=== PATIENT | female | born 1965 | race Caucasian/White ===

== ENCOUNTER 2016-05-07 11:43 | Inpatient (IN) | payer OTHER ==
[2016-05-07] MEDS ORDERED: SODIUM CHLORIDE 0.9% 1,000 ML IV STA (11:57)
[2016-05-07] MEDS ORDERED: SODIUM CHLORIDE 0.9% 500 ML IV STA (11:57)
--- NOTE | 2016-05-07 12:09 | ED ---
General Adult HPI - General Chief complaint: Chest Pain Stated complaint: CHEST PAIN Time Seen by Provider: 05/07/16 11:57 Source: patient, RN notes reviewed, old records reviewed Mode of arrival: wheelchair Limitations: no limitations - History of Present Illness Initial comments: This is a 50-year-old female the ER for evaluation of chest pain. Patient does have prior history of ME, patient coming in with anterior chest pain is been episodic for about a week and a half. Patient's no prior cardiac evaluation, pain is worse with activity. Mild diaphoresis no significant shortness of breath. Facially currently having chest pain now - Related Data Home Medications Medication Instructions Recorded Confirmed No Known Home Medications [No 05/07/16 05/07/16 Known Home Medications] Allergies Allergy/AdvReac Type Severity Reaction Status Date / Time amoxicillin Allergy Dyspnea Verified 05/07/16 13:05 Review of Systems ROS Statement: Those systems with pertinent positive or pertinent negative responses have been documented in the HPI. ROS Other: All systems not noted in ROS Statement are negative. Past Medical History Past Medical History: Hyperlipidemia, Hypertension History of Any Multi-Drug Resistant Organisms: None Reported Past Surgical History: Section Past Psychological History: No Psychological Hx Reported Smoking Status: Never smoker Past Alcohol Use History: None Reported Past Drug Use History: None Reported General Exam Limitations: no limitations General appearance: alert, in no apparent distress, anxious Head exam: Present: atraumatic, normocephalic, normal inspection Eye exam: Present: normal appearance, PERRL, EOMI. Absent: scleral icterus, conjunctival injection, periorbital swelling ENT exam: Present: normal exam, mucous membranes moist Neck exam: Present: normal inspection. Absent: tenderness, meningismus, lymphadenopathy Respiratory exam: Present: normal lung sounds bilaterally. Absent: respiratory distress, wheezes, rales, rhonchi, stridor Cardiovascular Exam: Present: regular rate, normal rhythm, normal heart sounds. Absent: systolic murmur, diastolic murmur, rubs, gallop, clicks GI/Abdominal exam: Present: soft, normal bowel sounds. Absent: distended, tenderness, guarding, rebound, rigid Extremities exam: Present: normal inspection, full ROM, normal capillary refill. Absent: tenderness, pedal edema, joint swelling, calf tenderness Back exam: Present: normal inspection Neurological exam: Present: alert, oriented X3, CN II-XII intact Psychiatric exam: Present: normal affect, normal mood Skin exam: Present: warm, dry, intact, normal color. Absent: rash Course Vital Signs 05/07/16 05/07/16 11:47 12:42 Temperature 98.0 F Pulse Rate 88 94 Respiratory 20 18 Rate Blood Pressure 230/101 238/114 O2 Sat by Pulse 98 96 Oximetry - Reevaluation(s) Reevaluation #1: 05/07/16 13:34 She remains with chest pain that has been help with nitro EKG Findings - EKG Comments: EKG Findings:: EKG shows her most sinus rhythm rate of 84, MT 112, QRS 60, QTC 420, patient does have T-wave inversions in the anterolateral leads. Repeat. EKG shows normal sinus rhythm rate of 89, MT 108, QRS 60, QTC 433, patient does have T-wave inversions in anterior lateral leads Medical Decision Making - Medical Decision Making 50 female at ER for evaluation of chest pain, severe anterior chest pain heaviness, patient does have EKG changes showing anterior lateral cardiac ischemia with T-wave inversion on EKG, patient will be made for anticoagulation serial troponins and cardiac observation. - Lab Data Result diagrams: 05/07/16 12:13 05/07/16 12:13 Lab Results 05/07/16 05/07/16 Range/Units 12:13 12:13 WBC 8.5 (3.8-10.6) k/uL RBC 5.99 H (3.80-5.40) m/uL Hgb 18.3 H (11.4-16.0) gm/dL Hct 56.3 H (34.0-46.0) % MCV 94.0 (80.0-100.0) fL MCH 30.5 (25.0-35.0) pg MCHC 32.4 (31.0-37.0) g/dL RDW 13.4 (11.5-15.5) % Plt Count 213 (150-450) k/uL Neutrophils % 74 % Lymphocytes % 16 % Monocytes % 7 % Eosinophils % 1 % Basophils % 0 % Neutrophils # 6.3 (1.3-7.7) k/uL Lymphocytes # 1.3 (1.0-4.8) k/uL Monocytes # 0.6 (0-1.0) k/uL Eosinophils # 0.0 (0-0.7) k/uL Basophils # 0.0 (0-0.2) k/uL Sodium 140 (137-145) mmol/L Potassium 5.0 (3.5-5.1) mmol/L Chloride 103 (98-107) mmol/L Carbon Dioxide 23 (22-30) mmol/L Anion Gap 14 mmol/L BUN 18 H (7-17) mg/dL Creatinine 1.04 (0.52-1.04) mg/dL Est GFR (MDRD) Af Amer >60 (>60 ml/min/1.73 sqM) Est GFR (MDRD) Non-Af 56 (>60 ml/min/1.73 sqM) Glucose 168 H (74-99) mg/dL Calcium 10.1 (8.4-10.2) mg/dL Magnesium 1.9 (1.6-2.3) mg/dL Total Bilirubin 0.9 (0.2-1.3) mg/dL AST 45 H (14-36) U/L ALT 41 (9-52) U/L Alkaline Phosphatase 99 (38-126) U/L Total Protein 8.3 H (6.3-8.2) g/dL Albumin 4.5 (3.5-5.0) g/dL Lipase 54 (23-300) U/L - Radiology Data Radiology results: report reviewed, image reviewed Critical Care Time Critical Care Time: Yes Total Critical Care Time: 31 Disposition Clinical Impression: NSTEMI (non-ST elevated myocardial infarction) Disposition: ADMITTED IP TO THIS [facility] Condition: Serious Referrals: None,Stated [Primary Care Provider] - 1-2 days
[2016-05-07] MEDS ORDERED: ASPIRIN 81 MG CHEW PO STA (12:31)
[2016-05-07] MEDS ORDERED: LABETALOL SYRINGE 5 MG/ML IVP STA ×2 (12:31→13:33)
[2016-05-07] MEDS ORDERED: NITROGLYCERIN OINT 1 INCH/GM PACKET TOPICAL STA (12:38)
[2016-05-07 13:00] LABS: Basophils % (A) 0 %; CHCM 33.2; Eosinophils % (A) 1 %; HCT 56.3 % (34.0-46.0); HDW 2.57; HGB 18.3 gm/dL (11.4-16.0); Luc # (Auto) 0.26; Luc % (Auto) 3; Lymphocytes # (A) 1.3 k/uL (1.0-4.8); Lymphocytes % (A) 16 %; MCH 30.5 pg (25.0-35.0); MCHC 32.4 g/dL (31.0-37.0); Mean Platelet Volume 8.7; Monocytes # (A) 0.6 k/uL (0-1.0); Monocytes % (A) 7 %; Neutrophils # (A) 6.3 k/uL (1.3-7.7); Neutrophils % (A) 74 %; RBC 5.99 m/uL (3.80-5.40); RDW 13.4 % (11.5-15.5); WBC 8.5 k/uL (3.8-10.6); WBC (Perox) 9.02
[2016-05-07 13:07] LABS: Anion Gap 14 mmol/L; Calcium 10.1 mg/dL (8.4-10.2); Carbon Dioxide 23 mmol/L (22-30); Chloride 103 mmol/L (98-107); Glucose 168 mg/dL (74-99); Non-African American GFR(MDRD) 56 (>60 ml/min/1.73 sqM); Sodium 140 mmol/L (137-145); Total Bilirubin 0.9 mg/dL (0.2-1.3); Total Protein 8.3 g/dL (6.3-8.2)
[2016-05-07 13:09] LABS: Blood Urea Nitrogen 18 mg/dL (7-17)
[2016-05-07 13:10] LABS: ALT 41 U/L (9-52); AST 45 U/L (14-36); Alkaline Phosphatase 99 U/L (38-126); Magnesium 1.9 mg/dL (1.6-2.3)
--- NOTE | 2016-05-07 13:14 | XR ---
EXAMINATION TYPE: XR chest 2V DATE OF EXAM: 05/07/2016 1:10 PM HISTORY: Chest Pain. REFERENCE: NONE. FINDINGS: There is mild fullness of the right paratracheal soft tissues, likely on the basis of ectas ia of the great vessels. There is platelike atelectasis in the right midlung. The lungs are otherwise clear. Pleural spaces ar e clear. Heart size is upper limits of normal. IMPRESSION: ATELECTATIC CHANGE, RIGHT MIDLUNG.
[2016-05-07] MEDS ORDERED: HEPARIN SODIUM,PORCINE 5,000 UNIT/ML 1 ML VIAL IV PRN (13:31)
[2016-05-07] MEDS ORDERED: HEPARIN SODIUM,PORCINE 5,000 UNIT/ML 1 ML VIAL IV ONE (13:31)
[2016-05-07] MEDS ORDERED: NITROGLYCERIN SL TABS 0.4 MG TAB SUBLINGUAL PRN (13:31)
[2016-05-07] MEDS ORDERED: RX INFO: IV CONTRAST WAS GIVEN 1 EACH MISC MISCELLANE PRN (13:38)
[2016-05-07] MEDS ORDERED: HEPARIN SODIUM,PORCINE/D5W PMX 25,000 UNIT in DEXTROSE/WATER 1 500ML.BAG IV SCH (13:45)
[2016-05-07 13:49] LABS: Troponin I 0.186 ng/mL (0.000-0.034)
[2016-05-07 13:50] LABS: Creatine Kinase MB 3.9 ng/mL (0.0-2.4)
[2016-05-07 13:56] LABS: Partial Thromboplastin Time 19.2 sec (22.0-30.0)
[2016-05-07 13:57] LABS: Prothrombin Time 9.9 sec (9.0-12.0)
--- NOTE | 2016-05-07 14:13 | CT ---
EXAMINATION TYPE: CT angio chest DATE OF EXAM: 05/07/2016 2:02 PM COMPARISON: NONE HISTORY: Mid to right sided chest pain x [address] DLP: 467.00 mGycm Automated exposure control for dose reduction was used. CONTRAST: CTA scan of the thorax is performed with IV Contrast, patient injected with 80 mL of Visipaque 320, p ulmonary embolism protocol. . FINDINGS: There is some dependent atelectasis in the dependent portions of the lungs. The lungs are o therwise clear. There is no significant axillary, internal mammary, mediastinal or hilar adenopathy. There is no evidence of pulmonary embolus. The aorta is normal in caliber without evidence of dissection. There is no pleural or pericardial fluid. The heart is not enlarged. There is a small hiatal hernia present. Visualized portions of the upper abdomen are otherwise unrema rkable. There is mild hypertrophic spondylosis within the spine. IMPRESSION: 1. THIS EXAMINATION IS NEGATIVE FOR PULMONARY EMBOLUS. 2. SMALL HIATAL HERNIA.
[2016-05-07] MEDS: SODIUM CHLORIDE 0.9% 1,000 ML IV SCH (18:40)
[2016-05-07] MEDS: NITROGLYCERIN OINT 1 INCH/GM PACKET TOPICAL SCH ×2 (18:42→23:08)
[2016-05-07 19:45] LABS: Creatine Kinase MB 19.6 ng/mL (0.0-2.4)
[2016-05-07] MEDS ORDERED: ACETAMINOPHEN TAB 325 MG TAB PO PRN (20:57)
[2016-05-08 00:54] LABS: Troponin I 6.9 ng/mL (0.000-0.034)
[2016-05-08] MEDS ORDERED: ATENOLOL 25 MG TAB PO STA (02:55)
[2016-05-08] MEDS: ATORVASTATIN 80 MG TAB PO SCH (07:56)
[2016-05-08] MEDS: ASPIRIN 325 MG TAB PO SCH (07:56)
[2016-05-08] MEDS: NITROGLYCERIN OINT 1 INCH/GM PACKET TOPICAL SCH ×2 (07:56→18:58)
[2016-05-08] MEDS ORDERED: ALPRAZolam 0.5 MG TAB PO PRN (08:31)
[2016-05-08] MEDS ORDERED: NITROGLYCERIN SL TABS 0.4 MG TAB SUBLINGUAL PRN (08:31)
[2016-05-08] MEDS ORDERED: SODIUM CHLORIDE 0.9% 1,000 ML in EMPTY BAG 1 BAG IV ONE (08:31)
[2016-05-08] MEDS ORDERED: ALPRAZolam 0.25 MG TAB PO PRN (08:31)
[2016-05-08] MEDS ORDERED: ATORVASTATIN 80 MG TAB PO STA (08:31)
[2016-05-08] MEDS ORDERED: ASPIRIN 325 MG TAB PO STA (08:31)
--- NOTE | 2016-05-08 08:39 | P.CRDCN ---
History of Present Illness Consult date: 05/08/16 Requesting physician: Raine Latif Consult reason: non-Q-wave [place] Chief complaint: Chest pain History of present illness: This is a 50-year-old female with known history of hypertension, hyperlipidemia, family history of premature coronary artery disease, who states that she used to take medication for blood pressure and hyperlipidemia but has not taken them for several years. She presents to the hospital with symptoms of midsternal chest pressure and heaviness. She states that she's been experiencing discomfort for the past one to 2 weeks, mostly in her right shoulder and down her right arm. The day prior to coming to the hospital she states that she had discomfort across her entire chest, and down into the right arm. She denies any associated shortness of breath, no diaphoresis, no nausea. EKG on arrival here showed a normal sinus rhythm with ST-T wave changes mainly in the anterior lateral leads, some T wave inversion noted inferiorly as well. Chest x-ray revealed some atelectatic changes in the right midlung. CTA of the chest was negative for pulmonary embolism. WBC 8.5, hemoglobin 18.3, platelet count 213, potassium 5.0, BUN 18, creatinine 1.0. Magnesium level I.9 , troponins 0.18, 2.7, and 6.9. BNP level 238. The pressure on arrival to the emergency room 230/101, heart rate in the 80s, 98% on room air. The pressure this morning 164/90 with a heart rate in the 80s, 95% on room air. Patient is currently on IV heparin, aspirin, and atenolol. At the time of my examination this morning, she is chest pain-free. Past Medical History Past Medical History: Hyperlipidemia, Hypertension History of Any Multi-Drug Resistant Organisms: None Reported Past Surgical History: Section Additional Past Surgical History / Comment(s): gallstone surgery 1982 Past Anesthesia/Blood Transfusion Reactions: No Reported Reaction Past Psychological History: No Psychological Hx Reported Smoking Status: Never smoker Past Alcohol Use History: None Reported Past Drug Use History: None Reported - Past Family History Daughter(s) Family Medical History: No Reported History Brother(s) Family Medical History: Myocardial Infarction ([place]) Medications and Allergies Home Medications Medication Instructions Recorded Confirmed Type No Known Home Medications [No 05/07/16 05/07/16 History Known Home Medications] Allergies Allergy/AdvReac Type Severity Reaction Status Date / Time amoxicillin Allergy Dyspnea Verified 05/07/16 13:05 Physical Exam Vitals: Vital Signs Temp Pulse Pulse Resp BP BP BP 05/08/16 04:00 97.5 F L 80 16 165/90 05/08/16 00:00 97.5 F L 76 18 144/87 05/07/16 20:00 98.4 F 78 16 159/92 05/07/16 17:30 97.8 F 82 16 142/77 05/07/16 17:05 99.3 F 75 16 127/77 05/07/16 16:03 72 18 118/59 05/07/16 14:30 84 18 197/94 05/07/16 14:02 86 20 197/110 Pulse Ox 05/08/16 04:00 95 05/08/16 00:00 95 05/07/16 20:00 95 05/07/16 17:30 96 05/07/16 17:05 96 05/07/16 16:03 95 05/07/16 14:30 95 05/07/16 14:02 97 Intake and Output 05/07/16 05/08/16 05/08/16 22:59 06:59 14:59 Intake Total 220 237.405 Output Total 200 300 Balance 20 -62.595 Intake: Intake, IV Titration 237.405 Amount Heparin Sodium,Porcine/ 237.405 D5w Pmx 25,000 unit In Dextrose/Water 1 500ml. bag @ 11 UNITS/KG/HR 19. 95 mls/hr IV .Q24H MERYL Rx #:[id number] Oral 220 Output: Urine 200 300 Other: # Voids 1 Weight 91.7 kg PHYSICAL EXAMINATION: HEENT: Head is atraumatic, normocephalic. Pupils equal, round. Neck is supple. There is no elevated jugular venous pressure. HEART EXAMINATION: Heart S1, S2 normal. No murmur or gallop heard. CHEST EXAMINATION: Lungs are clear to auscultation and precussion. No chest wall tenderness is noted on palpation or with deep breathing. ABDOMEN: Soft, obese, nontender. Bowel sounds are heard. No organomegaly noted. EXTREMITIES: 2+ peripheral pulses with no evidence of peripheral edema and no calf tenderness noted. NEUROLOGIC patient is awake, alert and oriented -3. . Results 05/07/16 12:13 05/07/16 12:13 Cardiac Enzymes 05/07/16 05/07/16 05/08/16 Range/Units 19:02 20:24 00:01 CK-MB (CK-2) 19.6 H* 27.0 H* (0.0-2.4) ng/mL Troponin I Cancelled 2.770 H* 6.900 H* Coagulation 05/07/16 05/08/16 Range/Units 20:15 02:28 APTT 36.0 H 47.5 H (22.0-30.0) sec Current Medications Generic Name Dose Route Start Last Admin Trade Name Freq PRN Reason Stop Dose Admin Acetaminophen 650 mg 05/07/16 20:57 05/07/16 21:20 Tylenol Tab PO 650 mg Q4HR PRN Administration Fever and/ or Mild Pain Aspirin 325 mg 05/08/16 09:00 05/08/16 07:56 Aspirin PO 325 mg DAILY MERYL Administration Atenolol 25 mg 05/08/16 09:00 05/08/16 07:56 Tenormin PO 25 mg DAILY MERYL Administration Atorvastatin Calcium 80 mg 05/08/16 09:00 05/08/16 07:56 Lipitor PO 80 mg DAILY MERYL Administration Heparin Sodium (Porcine) 0 unit 05/07/16 13:31 Heparin IV Q6HR PRN Low PTT Protocol Heparin Sodium/Dextrose 25,000 500 mls @ 19.95 mls/hr 05/07/16 13:45 02:30 unit/ IV Solution IV 14 units/kg/hr .Q24H MERYL 25.4 mls/hr Protocol Titration 11 UNITS/KG/HR Sodium Chloride 1,000 mls @ 20 mls/hr 05/07/16 13:45 05/07/16 18:40 Saline 0.9% IV Not Given .Q24H [facility] Miscellaneous Information 1 each 05/07/16 13:38 Rx Info: Iv Contrast Was Given MISCELLANE 05/09/16 13:39 DAILY PRN Per Protocol Nitroglycerin 1 inch 05/07/16 18:00 05/08/16 07:56 Nitro-Bid Oint TOPICAL 1 inch Q6HR MERYL Administration Nitroglycerin 0.4 mg 05/07/16 13:31 Nitrostat SUBLINGUAL Q5M PRN Chest Pain Intake and Output 05/07/16 05/08/16 05/08/16 22:59 06:59 14:59 Intake Total 220 237.405 Output Total 200 300 Balance 20 -62.595 Intake: Intake, IV Titration 237.405 Amount Heparin Sodium,Porcine/ 237.405 D5w Pmx 25,000 unit In Dextrose/Water 1 500ml. bag @ 11 UNITS/KG/HR 19. 95 mls/hr IV .Q24H MERYL Rx #:[id number] Oral 220 Output: Urine 200 300 Other: # Voids 1 Weight 91.7 kg EKG Interpretations (text) EKG shows normal sinus rhythm with anterior lateral ST-T wave changes as well as inferior T-wave inversions. Assessment and Plan Plan: Assessment and plan #1 non-Q-wave myocardial infarction #2 accelerated hypertension #3 hyperlipidemia, untreated #4 history of hypertension, untreated #5 strong family history of premature coronary artery disease Plan We will discontinue the patient's atenolol and start the patient on Lopressor. Give the patient 80 mg of Lipitor stat. Obtain stat echocardiogram with Doppler study. Continue IV heparin, aspirin, add a small dose of EDMUNDO inhibitor to her medication regime. Patient has been advised to undergo cardiac catheterization for more definitive diagnosis, the risks and the benefits were explained to the patient in detail. This will be performed this morning. Further recommendations to follow. DNP note has been reviewed, I agree with a documented findings and plan of care. Patient was seen and examined.
[2016-05-08] MEDS ORDERED: ATENOLOL 25 MG TAB PO SCH (09:00)
[2016-05-08] MEDS ORDERED: LISINOPRIL 5 MG TAB PO SCH (09:00)
[2016-05-08 09:56] LABS: Cholesterol 179 mg/dL (<200); HDL Cholesterol 44 mg/dL (40-60); Triglycerides 159 mg/dL (<150)
[2016-05-08] MEDS ORDERED: LIDOCAINE 2% INJ 20 MG/ML (20 ML MDV) ONE (10:02)
[2016-05-08] MEDS ORDERED: MIDAZOLAM 2 MG/2 ML VIAL ONE (10:03)
[2016-05-08] MEDS ORDERED: fentaNYL (PF) 50 MCG/ML 2 ML AMP ONE (10:04)
--- NOTE | 2016-05-08 10:41 | ECHOF ---
Referral Reason:WI MEASUREMENTS -------- HEIGHT: 149.9 cm WEIGHT: 92.1 kg BP: 147/77 RVIDd: 2.6 cm (< 3.3) IVSd: 1.2 cm (0.6 - 1.1) LVIDd: 3.2 cm (3.9 - 5.3) LVPWd: 1.2 cm (0.6 - 1.1) IVSs: 1.6 cm LVIDs: 2.3 cm LVPWs: 1.8 cm LA Diam: 2.8 cm (2.7 - 3.8) LAESV Index (A-L): 22.85 ml/m Ao Diam: 3.0 cm (2.0 - 3.7) AV Cusp: 1.8 cm (1.5 - 2.6) MV EXCURSION: 8.503 mm (> 18.000) MV EF SLOPE: 41 mm/s (70 - 150) EPSS: 0.4 cm MV E John: 0.83 m/s MV DecT: 212 ms MV A John: 0.98 m/s MV E/A Ratio: 0.85 RAP: 5.00 mmHg RVSP: 28.52 mmHg FINDINGS -------- Sinus rhythm. This was a technically difficult study with suboptimal views. The left ventricular size is normal. There is borderline concentric left ventricular hypertrophy. Overall left ventricular systolic function is normal with, an EF between 55 - 60 %. The right ventricle is normal in size. Normal LA size by volume 22+/-6 ml/m2. The right atrium is normal in size. 1.5mg of Definity was utilized for enhancement of images The aortic valve is trileaflet and appears structurally normal. Mild mitral annular calcification present. There is trace to mild mitral regurgitation. Mild tricuspid regurgitation present. Right ventricular systolic pressure is normal at < 35 mmHg. The pulmonic valve was not well visualized. The aortic root size is normal. There is no pericardial effusion. CONCLUSIONS -------- 1. Sinus rhythm. 2. The aortic valve is trileaflet and appears structurally normal. 3. Mild mitral annular calcification present. 4. There is trace to mild mitral regurgitation. 5. Mild tricuspid regurgitation present. 6. Right ventricular systolic pressure is normal at < 35 mmHg. 7. The pulmonic valve was not well visualized. 8. The aortic root size is normal. 9. There is no pericardial effusion. 10. This was a technically difficult study with suboptimal views. 11. The left ventricular size is normal. 12. There is borderline concentric left ventricular hypertrophy. 13. Overall left ventricular systolic function is normal with, an EF between 55 - 60 %. 14. The right ventricle is normal in size. 15. Normal LA size by volume 22+/-6 ml/m2. 16. The right atrium is normal in size. 17. 1.5mg of Definity was utilized for enhancement of images TEMPER MILL OPERATOR: Sandra Viera RDCS
[2016-05-08] MEDS ORDERED: fentaNYL (PF) 50 MCG/ML 2 ML AMP IV ONE (10:54)
[2016-05-08] MEDS ORDERED: MIDAZOLAM 2 MG/2 ML VIAL IVP ONE (10:54)
[2016-05-08] MEDS ORDERED: LIDOCAINE 2% (PF) 20 MG/ML 2 ML VIAL SQ ONE (11:05)
[2016-05-08] MEDS ORDERED: NITROGLYCERIN SL TABS 0.4 MG TAB SUBLINGUAL ONE (11:13)
[2016-05-08] MEDS: NITROGLYCERIN SL TABS 0.4 MG TAB SUBLINGUAL ONE ×2 (11:14→12:02)
[2016-05-08] MEDS: NITROGLYCERIN 1000MCG/10ML SYRINGE INTRACORON ONE ×3 (11:19→11:31)
[2016-05-08] MEDS ORDERED: IOHEXOL 300 MG/ML 100 ML BOTTLE IV ONE (11:45)
[2016-05-08] MEDS ORDERED: LABETALOL SYRINGE 5 MG/ML ONE (11:45)
[2016-05-08] MEDS: LABETALOL SYRINGE 5 MG/ML IVP ONE ×2 (11:46→12:08)
[2016-05-08] MEDS ORDERED: SODIUM CHLORIDE 0.9% 1,000 ML IV ONE (11:51)
[2016-05-08] MEDS ORDERED: HYDROmorphone 2 MG/ML 1 ML SYRINGE ONE (11:52)
[2016-05-08] MEDS ORDERED: RX INFO: IV CONTRAST WAS GIVEN 1 EACH MISC MISCELLANE PRN (11:55)
[2016-05-08] MEDS ORDERED: HYDROmorphone 2 MG/ML 1 ML SYRINGE IVP ONE (11:55)
[2016-05-08] MEDS ORDERED: NITROGLYCERIN-D5W PMX 50 MG in DEXTROSE/WATER 1 250ML.BAG IV ONE (11:57)
[2016-05-08 12:23] LABS: Glucose,Whole Blood 146 mg/dL (75-99)
--- NOTE | 2016-05-08 13:00 | CC ---
DATE OF SERVICE: This patient came to the emergency room with the complaint of recurrent chest pain. EKG showed diffuse T-wave inversions in the inferolateral leads. Patient's troponin went up to 6. In view of that, the patient was advised cardiac catheterization for definitive diagnosis. PROCEDURE: The right groin was prepped and draped in the usual manner and the skin was infiltrated with 2% Xylocaine. The right femoral artery was entered using Seldinger technique. A #6 Ivorian sheath was placed in. Selective coronary angiography was then performed in multiple projections. It was difficult to engage the left main coronary artery and JL3 catheter was used. There was dampening of the pressure with engagement of the left main. The left main coronary artery appears to be diffusely diseased and significantly small caliber blood vessel as compared to the LAD and the circumflex coronary artery has a diffuse 70% stenosis. Patient did receive intracoronary nitroglycerin without any resolution and there was no definite evidence of any spasm. LAD is a good caliber blood vessel and gives rise to the diagonal branch. LAD and its branches are normal. The circumflex coronary artery is normal. The right coronary artery, there was a dampening of the pressure when the right coronary artery was engaged and the patient did receive intracoronary nitroglycerin. Patient has evidence of calcium in ostials and there is a significant ostial stenosis of the right coronary artery. Left ventricular end-diastolic pressure is 24 mmHg prior to angiography. No gradient is noted across the aortic valve. FINAL IMPRESSION: This study reveals a diffusely diseased left main coronary artery which is much smaller caliber blood vessel as compared to the LAD and circumflex and appears to be at least diffuse 70% stenosis. There is ostial stenosis of the right coronary artery with dampening of the pressure. RECOMMENDATIONS: In view of the significant triple-vessel disease and EKG abnormality and positive troponin level, we will review the film with surgeon and consider coronary artery bypass surgery. The films were also reviewed with Dr. Leach.
[2016-05-08] MEDS ORDERED: NITROGLYCERIN-D5W PMX 50 MG in DEXTROSE/WATER 1 250ML.BAG IV SCH (14:00)
[2016-05-08] MEDS: SODIUM CHLORIDE 0.9% 1,000 ML IV SCH ×2 (14:02→16:16)
--- NOTE | 2016-05-08 14:27 | P.CNPUL ---
History of Present Illness Consult date: 05/08/16 Reason for consult: other Chief complaint: Chest pain History of present illness: This is a 50-year-old female who presented to the emergency room for chest pain. She does have a prior history of acute myocardial infarction. Ore been going on for at least the day before admission. Chest pain On and off. Mild sweating. No shortness of breath. No history of any pulmonary issues. The patient was taken to the Film Library Clerk. Apparently the patient was found have significant coronary disease and doesn't spend bypass grafting in the near future. Review of Systems A 12 point review of system is positive for chest pain and mild diaphoresis. No nausea vomiting. No shortness of breath. No fever no chills. Past Medical History Past Medical History: Hyperlipidemia, Hypertension History of Any Multi-Drug Resistant Organisms: None Reported Past Surgical History: Section Additional Past Surgical History / Comment(s): gallstone surgery 1982 Past Anesthesia/Blood Transfusion Reactions: No Reported Reaction Past Psychological History: No Psychological Hx Reported Smoking Status: Never smoker Past Alcohol Use History: None Reported Past Drug Use History: None Reported - Past Family History Daughter(s) Family Medical History: No Reported History Brother(s) Family Medical History: Myocardial Infarction ([place]) Medications and Allergies Home Medications Medication Instructions Recorded Confirmed Type No Known Home Medications [No 05/07/16 05/07/16 History Known Home Medications] Allergies Allergy/AdvReac Type Severity Reaction Status Date / Time amoxicillin Allergy Dyspnea Verified 05/07/16 13:05 Physical Exam Osteopathic Statement: *. No significant issues noted on an osteopathic structural exam other than those noted in the History and Physical/Consult. Vitals: Vital Signs Temp Pulse Pulse Resp BP BP BP 05/08/16 14:00 67 106/64 05/08/16 13:40 130/69 05/08/16 13:10 124/70 05/08/16 13:00 66 15 130/74 05/08/16 12:40 140/78 05/08/16 12:30 97.5 F L 78 12 133/82 05/08/16 12:25 141/79 05/08/16 12:10 147/83 05/08/16 08:00 97.2 F L 78 18 147/77 05/08/16 04:00 97.5 F L 80 16 165/90 05/08/16 00:00 97.5 F L 76 18 144/87 05/07/16 20:00 98.4 F 78 16 159/92 05/07/16 17:30 97.8 F 82 16 142/77 05/07/16 17:05 99.3 F 75 16 127/77 05/07/16 16:03 72 18 118/59 05/07/16 14:30 84 18 197/94 Pulse Ox 05/08/16 14:00 93 L 05/08/16 13:40 05/08/16 13:10 05/08/16 13:00 96 05/08/16 12:40 05/08/16 12:30 94 L 05/08/16 12:25 05/08/16 12:10 05/08/16 08:00 94 L 05/08/16 04:00 95 05/08/16 00:00 95 05/07/16 20:00 95 05/07/16 17:30 96 05/07/16 17:05 96 05/07/16 16:03 95 05/07/16 14:30 95 Intake and Output 05/07/16 05/08/16 05/08/16 22:59 06:59 14:59 Intake Total 220 237.405 221.7 Output Total 200 300 Balance 20 -62.595 221.7 Intake: IV 220 0.9 NS 170 Intake, IV Titration 237.405 1.7 Amount Heparin Sodium,Porcine/ 237.405 D5w Pmx 25,000 unit In Dextrose/Water 1 500ml. bag @ 11 UNITS/KG/HR 19. 95 mls/hr IV .Q24H MERYL Rx #:[id number] Nitroglycerin-D5w Pmx 50 1.7 mg In Dextrose/Water 1 250ml.bag @ Titrate IV . Q0M MERYL Rx#:[id number] Oral 220 Output: Urine 200 300 Other: Voiding Method Bedpan # Voids 1 Weight 91.7 kg ABP, PAP, CO, CI - Last 8 Hours Arterial Blood Pressure 132/71 Arterial Blood Pressure 129/72 Arterial Blood Pressure 156/90 No acute distress, oriented 3. HEENT examination is grossly unremarkable. Mucous membranes are moist. Neck is Supple. Full range of motion. Cardiovascular examination reveals distant heart sounds. S1 and S2 normal. Lungs reveal relatively clear breath sounds. No wheezes rhonchi or crackles. Abdomen soft bowel sounds are heard. Extremities are intact. Results - Laboratory Findings CBC and BMP: 05/08/16 09:03 05/07/16 12:13 PT/INR, D-dimer PT 9.9 sec (9.0-12.0) 05/07/16 13:25 INR 1.0 (<1.1) 05/07/16 13:25 Abnormal lab findings: Abnormal Labs 05/07/16 05/07/16 05/07/16 19:02 20:15 20:24 APTT 36.0 H POC Glucose (mg/dL) Total Creatine Kinase 250 H CK-MB (CK-2) 19.6 H* Troponin I 2.770 H* Triglycerides LDL Cholesterol, Calc 05/08/16 05/08/16 05/08/16 00:01 02:28 09:03 APTT 47.5 H POC Glucose (mg/dL) Total Creatine Kinase 327 H CK-MB (CK-2) 27.0 H* Troponin I 6.900 H* Triglycerides 159 H LDL Cholesterol, Calc 103 H 05/08/16 05/08/16 09:03 12:21 APTT 57.2 H POC Glucose (mg/dL) 146 H Total Creatine Kinase CK-MB (CK-2) Troponin I Triglycerides LDL Cholesterol, Calc - Diagnostic Findings Chest x-ray: image reviewed (X-rays medications and labs are reviewed) Assessment and Plan (1) NSTEMI (non-ST elevated myocardial infarction) Status: Acute Plan: Plan The patient will see the cardiovascular surgeon. Additional recommendations suggestions forthcoming. The patient should do well with surgery. Lifelong nonsmoker. No history of any lung problems. Doesn't use oxygen at home. Unknown inhalers or puffers or anything like that. No prior history of asthma chronic bronchitis emphysema or any lung problem for that matter. Time with Patient: Greater than 30
[2016-05-08] MEDS ORDERED: MD COMMUNICATION TO PHARMACY 1 EACH MISC PO ONE (15:24)
--- NOTE | 2016-05-08 16:09 | HP ---
DATE OF ADMISSION: This patient is a 50-year-old with a history of hypertension, hyperlipidemia who came in with ( ) chest pain with chest pressure-like sensation which started yesterday. Continues to have chest pain. Patient is on nitroglycerin. Patient has significant ST-T wave changes in the anterior leads and some T-wave inversions in the inferior leads as well, because of which patient underwent cardiac catheterization, which showed triple-vessel disease. Patient is being evaluated Cardiothoracic Surgery. Patient still has a little bit of pressure-like sensation. Patient is on nitroglycerin drip. Patient was started on beta kun ( ) dual antiplatelet therapy. Because of continued symptoms, patient may go for CABG today. Patient was lightheaded when she came in. CT angiogram of the chest was done which is negative for pulmonary embolism. REVIEW OF SYSTEMS: CONSTITUTIONAL: No fever, no malaise, no fatigue. HEENT: No recent visual problems or hearing problems. Denied any sore throat. CARDIOVASCULAR: As described in HPI. PULMONARY: No shortness of breath, no cough, no hemoptysis. GASTROINTESTINAL: No diarrhea, no nausea, no vomiting, no abdominal pain. Normoactive bowel sounds. NEUROLOGICAL: No headaches, no weakness, no numbness. HEMATOLOGICAL: Denies any bleeding or petechiae. GENITOURINARY: Denies any burning micturition, frequency, or urgency. MUSCULOSKELETAL/RHEUMATOLOGICAL: Denies any joint pain, swelling, or any muscle pain. ENDOCRINE: Denies any polyuria or polydipsia. The rest of the 14 point review of systems is negative. PAST MEDICAL HISTORY: 1. Hypertension. 2. Hyperlipidemia. 3. section in the past. SOCIAL HISTORY: Denied any smoking, alcohol abuse or any drug abuse. FAMILY HISTORY: Significant for premature coronary artery disease in brother. PHYSICAL EXAMINATION: VITAL SIGNS: Temperature 97.5, pulse of 66, respiratory rate of 15. Blood pressure is 130/74. Saturating at 96% on 2 L of oxygen by nasal cannula. GENERAL: The patient is alert and oriented x3, not in any acute distress. Well developed, well nourished. HEENT: Pupils are round and equally reacting to light. EOMI. No scleral icterus. No conjunctival pallor. Normocephalic, atraumatic. No pharyngeal erythema. No thyromegaly. CARDIOVASCULAR: S1 and S2 present. No murmurs, rubs, or gallops. PULMONARY: Chest is clear to auscultation, no wheezing or crackles. ABDOMEN: Soft, nontender, nondistended, normoactive bowel sounds. No palpable organomegaly. MUSCULOSKELETAL: No joint swelling or deformity. EXTREMITIES: No cyanosis, clubbing, or pedal edema. NEUROLOGICAL: Gross neurological examination did not reveal any focal deficits. SKIN: No rashes. LABORATORY DATA: CBC, CMP are abnormal for elevated hemoglobin due to hemoconcentration 18.3. BUN of 18, creatinine of 1.04. Patient's initial troponin was 0.186. Now it is 6.9. Patient is on 100 mL of normal saline. ASSESSMENT AND PLAN: 1. [id number] myocardial infarction. Patient is status post cardiac catheterization with major three-vessel disease and is undergoing evaluation for CABG. 2. Accelerated hypertension, for which patient is on IV nitroglycerin drip. Patient also was started on lisinopril. 3. Hyperlipidemia. 4. Elevated hematocrit due to hemoconcentration, although patient is not a smoker. Expected to improve with IV fluids. 5. Mild acute renal dysfunction due to intravascular volume depletion, expected to improve with IV fluids. Patient has no primary care physician.
--- NOTE | 2016-05-08 16:54 | P.GSCN ---
History of Present Illness Consult date: 05/08/16 Reason for Consult: Evaluation for coronary artery bypass grafting Requesting physician: Keenan Arciniega History of present illness: Patient is a 50 years old lady with a strong family history of premature coronary artery disease, hypertension and hyperlipidemia that are not been treated for several years now, admitted with 2-3 weeks history of stuttering chest pain that is increasing in nature. Patient was ruled in for non-ST elevation myocardial infarction. CTA of the chest was negative for pulmonary embolism. Cardiac catheterization today showed significant left main and ostial right coronary artery disease. Patient had some chest pain post cath but this point has been for several hours pain-free. Review of Systems Negative except for the history of present illness Past Medical History Past Medical History: Hyperlipidemia, Hypertension History of Any Multi-Drug Resistant Organisms: None Reported Past Surgical History: Section, Cholecystectomy Additional Past Surgical History / Comment(s): gallstone surgery 1981 Past Anesthesia/Blood Transfusion Reactions: No Reported Reaction Past Psychological History: No Psychological Hx Reported Smoking Status: Never smoker Past Alcohol Use History: None Reported Past Drug Use History: None Reported - Past Family History Daughter(s) Family Medical History: No Reported History Brother(s) Family Medical History: Myocardial Infarction (VT) Medications and Allergies Home Medications Medication Instructions Recorded Confirmed Type No Known Home Medications [No 05/07/16 05/07/16 History Known Home Medications] Allergies Allergy/AdvReac Type Severity Reaction Status Date / Time amoxicillin Allergy Dyspnea Verified 05/07/16 13:05 Surgical - Exam Vital Signs Temp Pulse Resp BP Pulse Ox 98.0 F 88 20 230/101 98 05/07/16 11:47 05/07/16 11:47 05/07/16 11:47 05/07/16 11:47 05/07/16 11:47 - General well developed, well nourished, no distress - Eyes normal ocular movement, no icteric - ENT no hearing loss, no congestion - Neck no masses, trachea midline - Respiratory normal respiratory effort, clear to auscultation - Cardiovascular Rhythm: regular Heart Sounds: normal: S1, S2 - Abdomen Obese. Healed prior cholecystectomy and scars. Abdomen: soft, non tender, no guarding, no rigid, no rebound - Genitourinary Deferred - Rectum Deferred - Integumentary no rash, no abnormal pigmentation - Neurologic no disoriented, no combative - Psychiatric oriented to time, oriented to person, oriented to place, speech is normal, memory intact Negative left-sided modified Jorgito's test. Patient supine but no obvious varicose veins. There are 2+ dorsalis pedis pulses bilaterally Results - Labs 05/08/16 09:03 05/07/16 12:13 Abnormal Lab Results - Last 24 Hours (Table) 05/07/16 05/07/16 05/07/16 Range/Units 19:02 20:15 20:24 APTT 36.0 H (22.0-30.0) sec POC Glucose (mg/dL) (75-99) mg/dL Total Creatine Kinase 250 H (30-135) U/L CK-MB (CK-2) 19.6 H* (0.0-2.4) ng/mL Troponin I 2.770 H* (0.000-0.034) ng/mL Triglycerides (<150) mg/dL LDL Cholesterol, Calc (0-99) mg/dL 05/08/16 05/08/16 05/08/16 Range/Units 00:01 02:28 09:03 APTT 47.5 H (22.0-30.0) sec POC Glucose (mg/dL) (75-99) mg/dL Total Creatine Kinase 327 H (30-135) U/L CK-MB (CK-2) 27.0 H* (0.0-2.4) ng/mL Troponin I 6.900 H* (0.000-0.034) ng/mL Triglycerides 159 H (<150) mg/dL LDL Cholesterol, Calc 103 H (0-99) mg/dL 05/08/16 05/08/16 Range/Units 09:03 12:21 APTT 57.2 H (22.0-30.0) sec POC Glucose (mg/dL) 146 H (75-99) mg/dL Total Creatine Kinase (30-135) U/L CK-MB (CK-2) (0.0-2.4) ng/mL Troponin I (0.000-0.034) ng/mL Triglycerides (<150) mg/dL LDL Cholesterol, Calc (0-99) mg/dL Diabetes panel 05/08/16 Range/Units 09:03 Triglycerides 159 H (<150) mg/dL HDL Cholesterol 44 (40-60) mg/dL - Imaging Chest x-ray: report reviewed, image reviewed CT scan - chest: report reviewed, image reviewed EKG: report reviewed, image reviewed Additional studies: 2-D echo shows an overall preserved left ventricular function. Cardiac catheterization shows a diffuse left main disease and an ostial right coronary artery disease. Diffuse disease of a small circumflex system. Assessment and Plan Plan: 50 years old lady with non-ST elevation myocardial infarction, no medical therapy prior to admission, hypertension hyperlipidemia, triple-vessel coronary artery disease with left main disease and ostial right coronary artery disease, overall preserved left ventricular function. I believe the patient would benefit from 24-48 hours of medical therapy before proceeding with coronary artery bypass grafting on Sunday05/10/2016. Patient might need an IABP if her chest pain recurs and is resistant to medical therapy. We'll be initiating preoperative workup. We'll be following the patient closely with you. Thank you for the privilege of this consult.
--- NOTE | 2016-05-08 17:13 | US ---
EXAMINATION TYPE: US carotid duplex BILAT DATE OF EXAM: 05/08/2016 4:59 PM COMPARISON: NONE CLINICAL HISTORY: pre-op. Pre op cardiac surgery EXAM MEASUREMENTS: RIGHT: Peak Systolic Velocity (PSV) cm/sec ----- Right CCA: 97.7 ----- Right ICA: 132.3 ----- Right ECA: 173.2 ICA/CCA ratio: 1.4 RIGHT: End Diastole cm/sec ----- Right CCA: 21.9 ----- Right ICA: 51.5 ----- Right ECA: 11.6 LEFT: Peak Systolic Velocity (PSV) cm/sec ----- Left CCA: 72.4 ----- Left ICA: 105.3 ----- Left ECA: 198.5 ICA/CCA ratio: 1.5 LEFT: End Diastole cm/sec ----- Left CCA: 29.6 ----- Left ICA: 43.9 ----- Left ECA: 14.5 VERTEBRALS (direction of flow): Right Vertebral: Antegrade Left Vertebral: Antegrade TECHNOLOGIST IMPRESSION: Mild to moderate plaque noted bilateral bifurcations. Mildly increased [place] right ICA, right ECA and left ECA IMPRESSION: There is antegrade flow in the vertebral arteries. The images and measurements suggest c lose to 50% stenosis in both internal carotid arteries. There was significant shadowing due to calcif ied plaque and the possibility of more severe stenosis cannot be excluded. Criteria for Assigning % of Stenosis / Diameter reduction (Estimation based on the indirect measurements of the internal carotid artery velocities (ICA PSV). 1. Normal (no stenosis)=ICA PSV < 125 cm/s: ratio < 2.0: ICA EDV<40 cm/s. 2. Less than 50% stenosis=ICA PSV < 125 cm/s: ratio < 2.0: ICA EDV<40 cm/s. 3. 50 to 69% stenosis=ICA PSV of 125 to 230 cm/s: ration 2.0 ? 4.0: ICA EDV 40-100 cm/s. 4. Greater than 70% stenosis to near occlusion= ICA PSV > 230 cm/s: ratio > 4.0: ICA EDV > 100 cm/s. 5. Near occlusion= ICA PSV velocities may be low or undetectable: variable ratio and ICA EDV. 6. Total occlusion=unable to detect flow.
[2016-05-08 17:20] LABS: Basophils % (A) 1 %; CH 30.7; CHCM 32.1; Eosinophils # (A) 0.1 k/uL (0-0.7); Eosinophils % (A) 1 %; HCT 46.1 % (34.0-46.0); HDW 2.49; Luc # (Auto) 0.19; Luc % (Auto) 2; Lymphocytes # (A) 1.3 k/uL (1.0-4.8); Lymphocytes % (A) 17 %; MCH 30.8 pg (25.0-35.0); MCHC 31.9 g/dL (31.0-37.0); MCV 96.5 fL (80.0-100.0); Monocytes # (A) 0.6 k/uL (0-1.0); Monocytes % (A) 7 %; Neutrophils # (A) 5.6 k/uL (1.3-7.7); Neutrophils % (A) 72 %; RBC 4.78 m/uL (3.80-5.40); RDW 13.6 % (11.5-15.5); WBC 7.7 k/uL (3.8-10.6); WBC (Perox) 7.84
[2016-05-08 17:25] LABS: Appearance,Urine Clear (Clear); Bacteria,Urine Rare /hpf; Bilirubin,Urine Negative (Negative); Glucose,Urine (UA) Negative (Negative); Ketones,Urine Negative (Negative); Leukocyte Esterase,Urine Negative (Negative); Mucus,Urine Rare /hpf; Nitrite,Urine Negative (Negative); PH, Urine 5.5 (5.0-8.0); Particle Count 1547; Protein,Urine Negative (Negative); RBC,Urine 1 /hpf (0-5); Squamous Epithelial Cell,Urine 1 /hpf (0-4); UA Billing (MACRO vs. MICRO) MICRO; Urobilinogen,Urine <2.0 mg/dL (<2.0); WBC,Urine <1 /hpf (0-5)
[2016-05-08 17:31] LABS: INR 1.1 (<1.1)
[2016-05-08 17:32] LABS: ALT 39 U/L (9-52); AST 53 U/L (14-36); Alkaline Phosphatase 61 U/L (38-126); Anion Gap 9 mmol/L; Blood Urea Nitrogen 11 mg/dL (7-17); Calcium 8.7 mg/dL (8.4-10.2); Carbon Dioxide 28 mmol/L (22-30); Chloride 102 mmol/L (98-107); Glucose 145 mg/dL (74-99); HGB 14.7 gm/dL (11.4-16.0); Non-African American GFR(MDRD) 60 (>60 ml/min/1.73 sqM); Potassium 4.7 mmol/L (3.5-5.1); Prothrombin Time 10.7 sec (9.0-12.0); Sodium 139 mmol/L (137-145); Total Bilirubin 0.6 mg/dL (0.2-1.3); Total Protein 6.3 g/dL (6.3-8.2)
[2016-05-08 18:03] LABS: Hepatitis B Surface Ag Index 0.09
[2016-05-08] MEDS ORDERED: HEPARIN SODIUM,PORCINE 5,000 UNIT/ML 1 ML VIAL IV ONE (18:04)
[2016-05-08] MEDS ORDERED: HEPARIN SODIUM,PORCINE 5,000 UNIT/ML 1 ML VIAL IV PRN (18:04)
[2016-05-08 18:09] LABS: Hepatitis B Core IgM Index 0.04
[2016-05-08 18:12] LABS: Partial Thromboplastin Time 21.8 sec (22.0-30.0)
[2016-05-08] MEDS: MUPIROCIN 2% OINT 22 GM TUBE TOPICAL SCH ×2 (18:18→20:59)
[2016-05-08 18:21] LABS: Hepatitis C Virus IgG Index 0.02
[2016-05-08 18:34] LABS: Hepatitis C Virus IgG Ab Negative (Negative)
[2016-05-08] MEDS: HEPARIN SODIUM,PORCINE/D5W PMX 25,000 UNIT in DEXTROSE/WATER 1 500ML.BAG IV SCH (18:42)
[2016-05-08 19:32] LABS: Hemoglobin A1C 6.6 % (4.2-6.1)
[2016-05-08 19:33] LABS: Specific Gravity,Urine >1.050 (1.001-1.035)
[2016-05-08] MEDS: METOPROLOL TARTRATE 25 MG TAB PO SCH (20:56)
[2016-05-09] MEDS ORDERED: LISINOPRIL 5 MG TAB PO STA (00:21)
[2016-05-09] MEDS ORDERED: HEPARIN SODIUM,PORCINE 5,000 UNIT/ML 1 ML VIAL IV ONE (01:27)
[2016-05-09 07:30] LABS: Basophils % (A) 0 %; CH 30.5; CHCM 31.9; Eosinophils # (A) 0.2 k/uL (0-0.7); Eosinophils % (A) 3 %; HCT 43.9 % (34.0-46.0); HGB 13.8 gm/dL (11.4-16.0); Luc # (Auto) 0.23; Luc % (Auto) 3; Lymphocytes # (A) 1.7 k/uL (1.0-4.8); Lymphocytes % (A) 21 %; MCH 30.2 pg (25.0-35.0); MCHC 31.4 g/dL (31.0-37.0); MCV 96.1 fL (80.0-100.0); Mean Platelet Volume 7.4; Monocytes # (A) 0.5 k/uL (0-1.0); Monocytes % (A) 6 %; Neutrophils # (A) 5.4 k/uL (1.3-7.7); Neutrophils % (A) 67 %; RBC 4.57 m/uL (3.80-5.40); RDW 13.6 % (11.5-15.5); WBC 8.1 k/uL (3.8-10.6); WBC (Perox) 8.07
[2016-05-09] MEDS: ASPIRIN 325 MG TAB PO SCH (08:23)
[2016-05-09] MEDS: SODIUM CHLORIDE 0.9% 1,000 ML IV SCH ×3 (08:23→15:06)
[2016-05-09] MEDS: ATORVASTATIN 80 MG TAB PO SCH (08:23)
[2016-05-09] MEDS: MUPIROCIN 2% OINT 22 GM TUBE TOPICAL SCH ×2 (08:24→20:32)
[2016-05-09] MEDS: METOPROLOL TARTRATE 25 MG TAB PO SCH (08:24)
[2016-05-09 08:26] LABS: ALT 39 U/L (9-52); AST 35 U/L (14-36); Alkaline Phosphatase 64 U/L (38-126); Anion Gap 9 mmol/L; Blood Urea Nitrogen 11 mg/dL (7-17); Calcium 8.5 mg/dL (8.4-10.2); Carbon Dioxide 25 mmol/L (22-30); Chloride 106 mmol/L (98-107); Glucose 143 mg/dL (74-99); Non-African American GFR(MDRD) 56 (>60 ml/min/1.73 sqM); Potassium 4.7 mmol/L (3.5-5.1); Sodium 140 mmol/L (137-145); Total Bilirubin 0.6 mg/dL (0.2-1.3); Total Protein 5.7 g/dL (6.3-8.2)
--- NOTE | 2016-05-09 10:44 | P.PN ---
Subjective Progress note dated down 05/09/2016 This is a 50-year-old female seen yesterday in consultation. She presented to the emergency room for chest pain. She does have a previous history of acute myocardial infarction. Anyway the patient went to the [facility] [employer] [facility] was found have significant coronary artery disease. The patient is apparently going for open heart surgery tomorrow. She's currently on room air. Her IVs appointment 9 at 75 mL an hour. The patient is getting IV heparin. Patient otherwise is doing well. I saw her lung function. She is a lifelong nonsmoker. He was on her lung function weren't as good as I expected them to be, there more than adequate to support general anesthesia in her anticipated bypass grafting. Objective - Vital Signs Vital signs: Vital Signs Temp 98.3 F 05/09/16 08:00 Pulse 75 05/09/16 10:00 Resp 16 05/09/16 10:00 BP 140/80 05/09/16 10:00 Pulse Ox 96 05/09/16 10:00 Intake & Output 05/08/16 05/09/16 05/09/16 18:59 06:59 18:59 Intake Total 597.0 1036.084 657.482 Output Total 950 500 Balance 597.0 86.084 157.482 Weight 90.2 kg Intake: IV 595 825 225 0.9 NS 545 825 225 Intake, IV Titration 2.0 211.084 192.482 Amount Heparin Sodium,Porcine/ 132.934 172.482 D5w Pmx 25,000 unit In Dextrose/Water 1 500ml. bag @ 10.9 UNITS/KG/HR 19 .99 mls/hr IV .Q24H MERYL Rx#:[id number] Nitroglycerin-D5w Pmx 50 2.0 78.15 mg In Dextrose/Water 1 250ml.bag @ Titrate IV . Q0M MERYL Rx#:[id number] Sodium Chloride 0.9% 1, 20 000 ml @ 10 mls/hr IV . Q24H MERYL Rx#:[id number] Oral 240 Output: Urine 950 500 Other: Voiding Method Bedpan Toilet Toilet # Voids 1 1 1 # Bowel Movements 1 ABP, PAP, CO, CI - Last Documented Arterial Blood Pressure 132/71 - Exam No acute distress, oriented 3. Next HEENT examination is grossly unremarkable. Mucous membranes are moist. No oral lesions. Next Neck supple. Full range of motion. No adenopathy or thyromegaly. Neck veins are flat. Cardiovascular examination reveals regular rhythm rate. S1-S2 normal. No S3- S4 or murmur. Next Lungs are clear breath sounds are equal. No wheezes or rhonchi. Next Abdomen is soft bowel sounds are heard. Extremities are intact. - Labs CBC & Chem 7: 05/09/16 06:58 05/09/16 06:58 Labs: Abnormal Lab Results - Last 24 Hours (Table) 05/08/16 05/08/16 05/08/16 Range/Units 12:21 16:40 16:40 Hct 46.1 H (34.0-46.0) % APTT 21.8 L (22.0-30.0) sec Glucose (74-99) mg/dL POC Glucose (mg/dL) 146 H (75-99) mg/dL Hemoglobin A1c (4.2-6.1) % AST (14-36) U/L Troponin I (0.000-0.034) ng/mL Total Protein (6.3-8.2) g/dL Albumin (3.5-5.0) g/dL Ur Specific [place] (1.001-1.035) Urine Blood (Negative) Urine Bacteria (None) /hpf Urine Mucus (None) /hpf 05/08/16 05/08/16 05/08/16 Range/Units 16:40 16:40 16:45 Hct (34.0-46.0) % APTT (22.0-30.0) sec Glucose 145 H (74-99) mg/dL POC Glucose (mg/dL) (75-99) mg/dL Hemoglobin A1c 6.6 H (4.2-6.1) % AST 53 H (14-36) U/L Troponin I 3.080 H* (0.000-0.034) ng/mL Total Protein (6.3-8.2) g/dL Albumin 3.4 L (3.5-5.0) g/dL Ur Specific [place] (1.001-1.035) Urine Blood (Negative) Urine Bacteria (None) /hpf Urine Mucus (None) /hpf 05/08/16 05/09/16 05/09/16 Range/Units 16:57 00:04 06:58 Hct (34.0-46.0) % APTT 36.2 H (22.0-30.0) sec Glucose 143 H (74-99) mg/dL POC Glucose (mg/dL) (75-99) mg/dL Hemoglobin A1c (4.2-6.1) % AST (14-36) U/L Troponin I (0.000-0.034) ng/mL Total Protein 5.7 L (6.3-8.2) g/dL Albumin 3.0 L (3.5-5.0) g/dL Ur Specific [place] >1.050 H (1.001-1.035) Urine Blood Moderate H (Negative) Urine Bacteria Rare H (None) /hpf Urine Mucus Rare H (None) /hpf 05/09/16 05/09/16 Range/Units 06:58 06:58 Hct (34.0-46.0) % APTT 79.5 H (22.0-30.0) sec Glucose (74-99) mg/dL POC Glucose (mg/dL) (75-99) mg/dL Hemoglobin A1c (4.2-6.1) % AST (14-36) U/L Troponin I 2.720 H* (0.000-0.034) ng/mL Total Protein (6.3-8.2) g/dL Albumin (3.5-5.0) g/dL Ur Specific [place] (1.001-1.035) Urine Blood (Negative) Urine Bacteria (None) /hpf Urine Mucus (None) /hpf Microbiology - Last 24 Hours (Table) 05/08/16 16:28 Nasal Screen MRSA/MSSA ([facility]AN) - Preliminary Nasal Swab 05/08/16 16:57 Urine Culture - Preliminary Urine,Voided Assessment and Plan (1) NSTEMI (non-ST elevated myocardial infarction) Status: Acute Plan: Plan The patient will see the cardiovascular surgeon. Additional recommendations suggestions forthcoming. The patient should do well with surgery. Lifelong nonsmoker. No history of any lung problems. Doesn't use oxygen at home. Unknown inhalers or puffers or anything like that. No prior history of asthma chronic bronchitis emphysema or any lung problem for that matter. Plan dated 05/09/2016 The patient's doing well. Anticipated surgery tomorrow. Lung function were adequate. We'll continue to follow closely. We'll see her after the surgery tomorrow and hopefully wean him quickly from mechanical ventilator. Time with Patient: Less than 30
[2016-05-09] MEDS ORDERED: MD COMMUNICATION TO PHARMACY 1 EACH MISC PO ONE ×2 (11:03)
--- NOTE | 2016-05-09 11:33 | P.PN ---
Subjective Principal diagnosis: Severe coronary artery disease, non-STEMI Currently sitting up in the chair, no apparent distress, all questions regarding pending surgery answered. Objective - Vital Signs Vital signs: Vital Signs Temp 98.3 F 05/09/16 08:00 Pulse 75 05/09/16 10:00 Resp 16 05/09/16 10:00 BP 140/80 05/09/16 10:00 Pulse Ox 96 05/09/16 10:00 Intake & Output 05/08/16 05/09/16 05/09/16 18:59 06:59 18:59 Intake Total 597.0 1036.084 647.482 Output Total 950 250 Balance 597.0 86.084 397.482 Weight 90.2 kg Intake: IV 595 825 225 0.9 NS 545 825 225 Intake, IV Titration 2.0 211.084 182.482 Amount Heparin Sodium,Porcine/ 132.934 172.482 D5w Pmx 25,000 unit In Dextrose/Water 1 500ml. bag @ 10.9 UNITS/KG/HR 19 .99 mls/hr IV .Q24H MERYL Rx#:[id number] Nitroglycerin-D5w Pmx 50 2.0 78.15 mg In Dextrose/Water 1 250ml.bag @ Titrate IV . Q0M MERYL Rx#:[id number] Sodium Chloride 0.9% 1, 10 000 ml @ 10 mls/hr IV . Q24H MERYL Rx#:[id number] Oral 240 Output: Urine 950 250 Other: Voiding Method Bedpan Toilet Toilet # Voids 1 1 1 # Bowel Movements 1 ABP, PAP, CO, CI - Last Documented Arterial Blood Pressure 132/71 - Constitutional General appearance: Present: cooperative, no acute distress - Respiratory Details: Lungs sounds diminished, respirations even, nonlabored, currently on room air. - Cardiovascular Details: S1, S2 present. Regular rate and rhythm, normal sinus rhythm on telemetry. No edema present. - Gastrointestinal Gastrointestinal Comment(s): abdomen soft, nontender, nondistended. Active bowel sounds 4 quadrants. Tolerating diet. - Genitourinary Genitourinary Comment(s): Continues to void clear, yellow urine. - Musculoskeletal Musculoskeletal: Present: gait normal - Psychiatric Psychiatric: Present: A&O x's 3, appropriate affect, intact judgment & insight - Allied health notes Allied health notes reviewed: nursing - Labs CBC & Chem 7: 05/09/16 06:58 05/09/16 06:58 Labs: Abnormal Lab Results - Last 24 Hours (Table) 05/08/16 05/08/16 05/08/16 Range/Units 12:21 16:40 16:40 Hct 46.1 H (34.0-46.0) % APTT 21.8 L (22.0-30.0) sec Glucose (74-99) mg/dL POC Glucose (mg/dL) 146 H (75-99) mg/dL Hemoglobin A1c (4.2-6.1) % AST (14-36) U/L Troponin I (0.000-0.034) ng/mL Total Protein (6.3-8.2) g/dL Albumin (3.5-5.0) g/dL Ur Specific [place] (1.001-1.035) Urine Blood (Negative) Urine Bacteria (None) /hpf Urine Mucus (None) /hpf 05/08/16 05/08/16 05/08/16 Range/Units 16:40 16:40 16:45 Hct (34.0-46.0) % APTT (22.0-30.0) sec Glucose 145 H (74-99) mg/dL POC Glucose (mg/dL) (75-99) mg/dL Hemoglobin A1c 6.6 H (4.2-6.1) % AST 53 H (14-36) U/L Troponin I 3.080 H* (0.000-0.034) ng/mL Total Protein (6.3-8.2) g/dL Albumin 3.4 L (3.5-5.0) g/dL Ur Specific [place] (1.001-1.035) Urine Blood (Negative) Urine Bacteria (None) /hpf Urine Mucus (None) /hpf 05/08/16 05/09/16 05/09/16 Range/Units 16:57 00:04 06:58 Hct (34.0-46.0) % APTT 36.2 H (22.0-30.0) sec Glucose 143 H (74-99) mg/dL POC Glucose (mg/dL) (75-99) mg/dL Hemoglobin A1c (4.2-6.1) % AST (14-36) U/L Troponin I (0.000-0.034) ng/mL Total Protein 5.7 L (6.3-8.2) g/dL Albumin 3.0 L (3.5-5.0) g/dL Ur Specific [place] >1.050 H (1.001-1.035) Urine Blood Moderate H (Negative) Urine Bacteria Rare H (None) /hpf Urine Mucus Rare H (None) /hpf 05/09/16 05/09/16 Range/Units 06:58 06:58 Hct (34.0-46.0) % APTT 79.5 H (22.0-30.0) sec Glucose (74-99) mg/dL POC Glucose (mg/dL) (75-99) mg/dL Hemoglobin A1c (4.2-6.1) % AST (14-36) U/L Troponin I 2.720 H* (0.000-0.034) ng/mL Total Protein (6.3-8.2) g/dL Albumin (3.5-5.0) g/dL Ur Specific [place] (1.001-1.035) Urine Blood (Negative) Urine Bacteria (None) /hpf Urine Mucus (None) /hpf Microbiology - Last 24 Hours (Table) 05/08/16 16:28 Nasal Screen MRSA/MSSA ([facility]AN) - Preliminary Nasal Swab 05/08/16 16:57 Urine Culture - Preliminary Urine,Voided - Imaging and Cardiology Chest x-ray: report reviewed, image reviewed CT scan - chest: report reviewed, image reviewed Venous US: report reviewed, image reviewed Assessment and Plan (1) NSTEMI (non-ST elevated myocardial infarction) Status: Acute (2) Hypertension Status: Acute (3) Hyperlipidemia Status: Acute Plan: 1. Continue aspirin, statin, beta kun, heparin drip, nitro drip. 2. Plan for coronary artery bypass grafting tomorrow. 3. Preoperative teaching initiated, continue to reinforce. 4. Will DC heparin drip field operations supervisor to the OR tomorrow morning. 5. Please give aspirin, statin, beta kun in the morning before surgery. 6. Encourage incentive spirometry use. 7. Supportive care. 8. More recommendations as patient progresses. 5 meter walk test #1 4.66 sec, #2 5.8 sec, #3 4.74 sec Time with Patient: Greater than 30
[2016-05-09] MEDS ORDERED: METOPROLOL TARTRATE 25 MG TAB PO STA (12:52)
[2016-05-09] MEDS: HEPARIN SODIUM,PORCINE/D5W PMX 25,000 UNIT in DEXTROSE/WATER 1 500ML.BAG IV SCH (16:29)
--- NOTE | 2016-05-09 19:17 | PN ---
This patient was admitted with a non-Q-wave myocardial infarction. Patient underwent cardiac catheterization. Patient was found to have significant left main coronary artery disease and ostial stenosis. She has remained stable. She denies any chest pain or shortness of breath. HEART: First and second heart sounds are normal. Lungs are clinically clear to auscultation and percussion. Patient will undergo coronary artery bypass surgery tomorrow.
[2016-05-09] MEDS ORDERED: METOPROLOL TARTRATE 50 MG TAB PO SCH (21:00)
[2016-05-09] MEDS: MAGNESIUM SULFATE-D5W PMX 1 GM in DEXTROSE/WATER 1 100ML.BAG IVPB SCH ×2 (22:30→23:50)
[2016-05-10] MEDS ORDERED: MAGNESIUM SULFATE SYG 4.06 MEQ/ML SYRINGE IV PRN (05:00)
[2016-05-10] MEDS ORDERED: DEXTROSE 5% IN WATER 1,000 ML with POTASSIUM CHLORIDE 25 MEQ, SODIUM CHLORIDE 4MEQ/ML V... IV PRN ×6 (05:00)
[2016-05-10] MEDS ORDERED: ATORVASTATIN 10 MG TAB PO ONE (05:00)
[2016-05-10] MEDS ORDERED: ASPIRIN 325 MG TAB PO ONE (05:00)
[2016-05-10] MEDS ORDERED: ceFAZolin 1,000 MG in SODIUM CHLORIDE 0.9% IRRIGATIO 1,000 ML IRRIGATION ONE (05:00)
[2016-05-10] MEDS ORDERED: AMINOCAPROIC ACID 5,000 MG in DEXTROSE 5% IN WATER 50 ML IV PRN ×4 (05:00)
[2016-05-10] MEDS ORDERED: CALCIUM CHLORIDE 100 MG/ML 10 ML SYRINGE IVP PRN (05:00)
[2016-05-10] MEDS ORDERED: ALBUMIN HUMAN 25% 50 ML in EMPTY BAG 1 BAG IVPB PRN (05:00)
[2016-05-10] MEDS ORDERED: DEXTROSE 5% IN WATER 1,000 ML with POTASSIUM CHLORIDE 110 MEQ, MAGNESIUM SULFATE 16 MEQ... IV PRN ×5 (05:00)
[2016-05-10] MEDS ORDERED: CLEVIDIPINE BUTYRATE 25 MG in EMPTY BAG 1 BAG IV PRN (05:00)
[2016-05-10] MEDS ORDERED: NITROGLYCERIN-D5W PMX 50 MG in DEXTROSE/WATER 1 250ML.BAG IV PRN (05:00)
[2016-05-10] MEDS ORDERED: PHENYLEPHRINE 40 MG in SODIUM CHLORIDE 0.9% 250 ML IV PRN (05:00)
[2016-05-10] MEDS ORDERED: ceFAZolin 2,000 MG in SODIUM CHLORIDE 0.9% 30 ML IVPB ONE (05:00)
[2016-05-10] MEDS ORDERED: CHLORHEXIDINE GLUCONATE 15 ML CUP MUCOUS MEM PRN (05:00)
[2016-05-10] MEDS ORDERED: PROPOFOL 500 MG in EMPTY BAG 1 BAG IV PRN (05:00)
[2016-05-10] MEDS ORDERED: SODIUM BICARB 8.4% 50 ML SYR (1 MEQ/ML) IV PRN (05:00)
[2016-05-10] MEDS ORDERED: PAPAVERINE 360 MG in SODIUM CHLORIDE 0.9% 90 ML IV PRN (05:00)
[2016-05-10] MEDS ORDERED: HEPARIN SODIUM 1,000 UNIT/ML VIAL IV PRN (05:00)
[2016-05-10] MEDS ORDERED: PHENYLEPHRINE-0.9% NACL SYG 1 MG/10 ML SYRINGE IV PRN ×4 (05:00)
[2016-05-10] MEDS ORDERED: PROTAMINE SULFATE 250 MG in EMPTY BAG 1 BAG IV PRN (05:00)
[2016-05-10] MEDS ORDERED: HEPARIN SODIUM,PORCINE 5,000 UNIT in SODIUM CHLORIDE 0.9% 500 ML IV PRN (05:00)
[2016-05-10] MEDS ORDERED: NOREPINEPHRINE 4 MG in SODIUM CHLORIDE 0.9% 250 ML IV PRN (05:00)
[2016-05-10] MEDS ORDERED: VANCOMYCIN 1,350 MG in SODIUM CHLORIDE 0.9% 250 ML IVPB ONE (05:00)
[2016-05-10] MEDS ORDERED: PROTAMINE SULFATE 10 MG/ML 25 ML VIAL IV PRN (05:00)
[2016-05-10] MEDS ORDERED: INSULIN REGULAR 100 UNIT in SODIUM CHLORIDE 0.9% 100 ML IV PRN (05:00)
[2016-05-10] MEDS ORDERED: NITROGLYCERIN-D5W PMX 25 MG/250 ML BTL IV PRN (05:00)
[2016-05-10] MEDS ORDERED: ceFAZolin 2 GM in SODIUM CHLORIDE 0.9% 30 ML IVPB ONE (05:00)
[2016-05-10] MEDS ORDERED: AMINOCAPROIC ACID 250 MG/ML 20 ML VIAL IV PRN (05:00)
[2016-05-10] MEDS ORDERED: MANNITOL 25% 12.5 GM/50 ML VIAL IV PRN ×2 (05:00)
[2016-05-10] MEDS ORDERED: METOPROLOL TARTRATE 25 MG TAB PO ONE (05:00)
[2016-05-10] MEDS ORDERED: VANCOMYCIN 1,000 MG in SODIUM CHLORIDE 0.9% IRRIGATIO 1,000 ML IRRIGATION ONE (05:00)
[2016-05-10] MEDS ORDERED: ALBUMIN HUMAN 5% 500 ML in EMPTY BAG 1 BAG IVPB PRN ×6 (05:00)
[2016-05-10 05:19] LABS: Anion Gap 8 mmol/L; Blood Urea Nitrogen 12 mg/dL (7-17); Calcium 8.9 mg/dL (8.4-10.2); Carbon Dioxide 24 mmol/L (22-30); Chloride 108 mmol/L (98-107); Glucose 125 mg/dL (74-99); Non-African American GFR(MDRD) 59 (>60 ml/min/1.73 sqM); Potassium 4.3 mmol/L (3.5-5.1); Sodium 140 mmol/L (137-145)
[2016-05-10 05:20] LABS: Magnesium 2.2 mg/dL (1.6-2.3)
[2016-05-10 05:35] LABS: Basophils % (A) 0 %; CH 30.4; CHCM 31.5; Eosinophils # (A) 0.3 k/uL (0-0.7); Eosinophils % (A) 3 %; HCT 46.4 % (34.0-46.0); HDW 2.47; HGB 14.4 gm/dL (11.4-16.0); Luc # (Auto) 0.28; Luc % (Auto) 3; Lymphocytes # (A) 2.5 k/uL (1.0-4.8); Lymphocytes % (A) 30 %; MCV 96.9 fL (80.0-100.0); Mean Platelet Volume 7.3; Monocytes # (A) 0.5 k/uL (0-1.0); Monocytes % (A) 6 %; Neutrophils # (A) 4.6 k/uL (1.3-7.7); Neutrophils % (A) 57 %; RBC 4.79 m/uL (3.80-5.40); RDW 13.6 % (11.5-15.5); WBC 8.1 k/uL (3.8-10.6); WBC (Perox) 8.46
[2016-05-10] MEDS ORDERED: HEPARIN SODIUM,PORCINE 10,000 UNIT/ML 1 ML VIAL ONE (07:52)
[2016-05-10] MEDS ORDERED: LIDOCAINE 2% SYG (PF) 100 MG/5 ML ONE (07:52)
[2016-05-10] MEDS ORDERED: PHENYLEPHRINE-0.9% NACL SYG 1 MG/10 ML SYRINGE ONE (07:52)
[2016-05-10] MEDS ORDERED: SUCCINYLCHOLINE CHLORIDE 100 MG/5 ML SYR IV ONE (07:52)
[2016-05-10] MEDS ORDERED: MAGNESIUM SULFATE 4 MEQ/ML 2 ML VIAL ONE (07:52)
[2016-05-10] MEDS ORDERED: ALBUMIN HUMAN 5% 500 ML VIAL IVPB ONE (07:52)
[2016-05-10] MEDS ORDERED: HEPARIN SODIUM 1,000 UNIT/ML VIAL ONE (07:52)
[2016-05-10] MEDS ORDERED: PROTAMINE SULFATE 10 MG/ML 25 ML VIAL IV ONE (07:52)
[2016-05-10] MEDS ORDERED: VECURONIUM 10 MG VIAL IV ONE (07:52)
[2016-05-10] MEDS ORDERED: fentaNYL (PF) 50 MCG/ML 2 ML AMP ONE (07:52)
[2016-05-10] MEDS ORDERED: MIDAZOLAM 2 MG/2 ML VIAL ONE (07:52)
[2016-05-10] MEDS ORDERED: fentaNYL (PF) 50 MCG/ML 50 ML VIAL ONE (07:52)
[2016-05-10] MEDS ORDERED: SODIUM CHLORIDE 0.9% IRRIG 1,000 ML BTL IRRIGATION ONE (07:52)
[2016-05-10] MEDS ORDERED: PROPOFOL 10 MG/ML 20 ML VIAL IV ONE (07:52)
[2016-05-10 08:36] LABS: Glucose,Whole Blood 125 mg/dL (75-99)
--- NOTE | 2016-05-10 09:38 | P.VSCSTY ---
Greater Saphenous Vein Mapping This is bilateral lower extremity greater saphenous vein mapping. Date of service 05/08/2016 Vein quality and ultrasound appearance normal. Vein size groin right 5 x 5 groin left 6.4 x 6.7 High thigh right 3.2 x 3.0 high thigh left 3.7 x 3.8 Mid thigh right 2.0 x 2.6 mid thigh left 2.6 x 3.1 Above-knee right 3.7 x 3.8 above- knee left 2.9 x 2.9 Below knee right 2.5 x 3.1 below-knee left 2.9 x 2.7 Mid calf right 2.4 x 2.8 mid calf left 2.0 x 1.6 Ankle right 2.8 x 2.5 ankle left 2.3 x 2.2 Impression usable bilateral greater saphenous vein. The left ankle may be slightly small..
--- NOTE | 2016-05-10 09:53 | P.PN ---
Subjective Progress note dated down 05/09/2016 This is a 50-year-old female seen yesterday in consultation. She presented to the emergency room for chest pain. She does have a previous history of acute myocardial infarction. Anyway the patient went to the [facility] was found have significant coronary artery disease. The patient is apparently going for open heart surgery tomorrow. She's currently on room air. Her IVs appointment 9 at 75 mL an hour. The patient is getting IV heparin. Patient otherwise is doing well. I saw her lung function. She is a lifelong nonsmoker. He was on her lung function weren't as good as I expected them to be, there more than adequate to support general anesthesia in her anticipated bypass grafting. Progress note dated 05/10/2016 50-year-old female who is going to have open-heart surgery today. She's accident down in the operating room as we speak. Patient is doing relatively well. His been stable here. I was able to evaluate her baseline the surgical spirometry. She is a lifelong nonsmoker. Lung function weren't satisfactory. Certainly see her again after surgery back here in the ICU. At that time he'll be on the ventilator. We'll make sure she gets updrafts in the form of Xopenex and Atrovent every 4 [id number]. Post extubation patient will also be getting incentive spirometry every hour while awake. All all think she'll do relatively well. Objective - Vital Signs Vital signs: Vital Signs Temp 98.1 F 05/10/16 06:29 Pulse 72 05/10/16 06:29 Resp 16 05/10/16 06:29 BP 161/89 05/10/16 06:29 Pulse Ox 94 L 05/10/16 06:29 Intake & Output 05/09/16 05/10/16 05/10/16 18:59 06:59 18:59 Intake Total 1152.245 841.632 33 Output Total 1150 0 Balance 2.245 841.632 33 Weight 92 kg Intake: IV 225 33 0.9 NS 225 Intake, IV Titration 447.245 601.632 Amount Heparin Sodium,Porcine/ 357.245 301.632 D5w Pmx 25,000 unit In Dextrose/Water 1 500ml. bag @ 10.9 UNITS/KG/HR 19 .99 mls/hr IV .Q24H MERYL Rx#:[id number] Magnesium Sulfate-D5w Pmx 200 1 gm In Dextrose/Water 1 100ml.bag @ 100 mls/hr IVPB Q1H MERYL Rx#: [id number] Sodium Chloride 0.9% 1, 90 100 000 ml @ 10 mls/hr IV . Q24H MERYL Rx#:[id number] Oral 480 240 Output: Urine 1150 0 Other: Voiding Method Toilet Toilet # Voids 1 1 # Bowel Movements 1 0 ABP, PAP, CO, CI - Last Documented Arterial Blood Pressure 132/71 - Exam No acute distress, NG tube and endotracheal tube in place. HEENT examination is grossly unremarkable. Mucous membranes are moist. No oral lesions. Neck supple. Full range of motion. No adenopathy or thyromegaly. Neck veins are flat. Cardiovascular examination reveals regular rhythm rate. S1-S2 normal. No S3- S4 or murmur. Lungs are clear breath sounds are equal. No wheezes or rhonchi. Abdomen is soft bowel sounds are heard. Extremities are intact. - Labs CBC & Chem 7: 05/10/16 04:27 05/10/16 04:27 Labs: Abnormal Lab Results - Last 24 Hours (Table) 05/08/16 05/09/16 05/09/16 Range/Units 16:45 15:14 22:19 Hct (34.0-46.0) % APTT 44.4 H 62.7 H (22.0-30.0) sec Chloride (98-107) mmol/L Glucose (74-99) mg/dL POC Glucose (mg/dL) (75-99) mg/dL Crossmatch See Detail 05/10/16 05/10/16 05/10/16 Range/Units 04:27 04:27 04:27 Hct 46.4 H (34.0-46.0) % APTT 63.8 H (22.0-30.0) sec Chloride 108 H (98-107) mmol/L Glucose 125 H (74-99) mg/dL POC Glucose (mg/dL) (75-99) mg/dL Crossmatch 05/10/16 Range/Units 08:34 Hct (34.0-46.0) % APTT (22.0-30.0) sec Chloride (98-107) mmol/L Glucose (74-99) mg/dL POC Glucose (mg/dL) 125 H (75-99) mg/dL Crossmatch Microbiology - Last 24 Hours (Table) 05/08/16 16:57 Urine Culture - Final Urine,Voided Assessment and Plan (1) NSTEMI (non-ST elevated myocardial infarction) Status: Acute Plan: Plan The patient will see the cardiovascular surgeon. Additional recommendations suggestions forthcoming. The patient should do well with surgery. Lifelong nonsmoker. No history of any lung problems. Doesn't use oxygen at home. Unknown inhalers or puffers or anything like that. No prior history of asthma chronic bronchitis emphysema or any lung problem for that matter. Plan dated 05/09/2016 The patient's doing well. Anticipated surgery tomorrow. Lung function were adequate. We'll continue to follow closely. We'll see her after the surgery tomorrow and hopefully wean him quickly from mechanical ventilator. Plan dated 05/10/2016 The patient will be eventually weaned off the mechanical ventilator. We've added updrafts every 4. Once extubated, the patient will begin incentive spirometry every hour while awake. We'll continue to follow. Prognosis is guarded but generally she should do relatively well. Additional additionally, x -rays will be evaluated on a daily basis. Time with Patient: Greater than 30
[2016-05-10 10:36] LABS: Glucose,Whole Blood 160 mg/dL (75-99)
[2016-05-10 11:21] LABS: Glucose,Whole Blood 141 mg/dL (75-99)
[2016-05-10 12:16] LABS: Glucose,Whole Blood 231 mg/dL (75-99)
[2016-05-10 12:52] LABS: Glucose,Whole Blood 219 mg/dL (75-99)
[2016-05-10 14:07] LABS: Glucose,Whole Blood 206 mg/dL (75-99)
[2016-05-10 14:54] LABS: Glucose,Whole Blood 152 mg/dL (75-99)
[2016-05-10] MEDS: ALBUMIN HUMAN 5% 250 ML IVPB ONE ×2 (14:56→16:00)
[2016-05-10] MEDS ORDERED: BENZOCAINE/MENTHOL LOZENG 1 EACH LOZENGE MUCOUS MEM PRN (14:59)
[2016-05-10] MEDS ORDERED: Magnesium Replacement Protocol 1 EACH MISC MISCELLANE PRN (14:59)
[2016-05-10] MEDS ORDERED: Phosphorus Replacement Protoco 1 EACH MISC MISCELLANE PRN (14:59)
[2016-05-10] MEDS ORDERED: ALBUMIN HUMAN 5% 250 ML in EMPTY BAG 1 BAG IVPB PRN (14:59)
[2016-05-10] MEDS ORDERED: METOCLOPRAMIDE 5 MG/ML 2 ML VIAL IVP PRN (14:59)
[2016-05-10] MEDS ORDERED: CALCIUM GLUCONATE 2,000 MG in SODIUM CHLORIDE 0.9% 100 ML IVPB PRN (14:59)
[2016-05-10] MEDS ORDERED: MORPHINE SULFATE 2 MG/ML SYRINGE IVP PRN (14:59)
[2016-05-10] MEDS ORDERED: ONDANSETRON 4 MG/2 ML VIAL IVP PRN (14:59)
[2016-05-10] MEDS ORDERED: Potassium Replacement Protocol 1 EACH MISC MISCELLANE PRN ×2 (14:59→19:49)
[2016-05-10] MEDS ORDERED: PROPOFOL 500 MG in EMPTY BAG 1 BAG IV SCH (15:00)
[2016-05-10] MEDS: LACTATED RINGERS 1,000 ML IV SCH (15:00)
[2016-05-10] MEDS ORDERED: ALBUMIN HUMAN 5% 250 ML IVPB ONE (15:09)
[2016-05-10] MEDS ORDERED: INSULIN REGULAR 100 UNIT in SODIUM CHLORIDE 0.9% 100 ML IV SCH (15:15)
[2016-05-10 15:20] LABS: Basophils % (A) 0 %; CH 30.8; CHCM 32.7; Eosinophils # (A) 0.1 k/uL (0-0.7); Eosinophils % (A) 1 %; HCT 22.9 % (34.0-46.0); HDW 2.63; Luc # (Auto) 0.12; Luc % (Auto) 2; Lymphocytes # (A) 1.8 k/uL (1.0-4.8); Lymphocytes % (A) 23 %; MCH 31.5 pg (25.0-35.0); MCHC 33.3 g/dL (31.0-37.0); MCV 94.7 fL (80.0-100.0); Mean Platelet Volume 8.1; Monocytes # (A) 0.2 k/uL (0-1.0); Monocytes % (A) 3 %; Neutrophils # (A) 5.4 k/uL (1.3-7.7); Neutrophils % (A) 71 %; RBC 2.42 m/uL (3.80-5.40); RDW 13.7 % (11.5-15.5); WBC 7.6 k/uL (3.8-10.6)
[2016-05-10 15:25] LABS: HGB 7.6 gm/dL (11.4-16.0)
[2016-05-10 15:40] LABS: INR 1.3 (<1.1); Partial Thromboplastin Time 28.7 sec (22.0-30.0); Prothrombin Time 12.7 sec (9.0-12.0)
--- NOTE | 2016-05-10 15:44 | XR ---
EXAMINATION TYPE: XR chest 1V portable DATE OF EXAM: 05/10/2016 3:39 PM COMPARISON: NONE HISTORY: Postop cardiac surgery TECHNIQUE: Single frontal view of the chest is obtained. FINDINGS: ET tube is approximately 3 cm above the daija. [place]-Kim catheter seen with the tip overl shereen the proximal pulmonary outflow tract. Mediastinal drain and left-sided chest tube noted. Bilateral areas of consolidation pleural effusion noted correlate for mild venous congestion. Cannot exclude a less than 5% left apical pneumothorax. Postsurgical changes are noted. IMPRESSION: 1. Postoperative changes with bilateral pleural effusion and consolidation correlate for mild CHF. 2. Probable less than 5% apical pneumothorax on the left.
[2016-05-10] MEDS: IPRATROPIUM-ALBUTEROL 3 ML NEB INHALATION SCH ×2 (15:47→20:01)
--- NOTE | 2016-05-10 16:05 | P.PN ---
Subjective Date of service 05/09/2016. Progress note being dictated for Dr. Blandon. Interval history: This a 50-year-old female admitted with non-ST elevation ID, status post cardiac catheterization with major triple vessel disease, and multiple other medical issues. Scheduled for CABG tomorrow. Incentive spirometer up to 1500. Telemetry sinus rhythm. Denies chest pain, palpitations or increasing shortness of breath. Maintained on IV heparin. Objective - Vital Signs Vital signs: Vital Signs Temp 98.8 F 05/09/16 15:00 Pulse 74 05/09/16 18:00 Resp 62 H 05/09/16 18:00 BP 164/86 05/09/16 18:00 Pulse Ox 95 05/09/16 18:00 Intake & Output 05/08/16 05/09/16 05/09/16 18:59 06:59 18:59 Intake Total 597.0 9283.103 6487.245 Output Total 950 1150 Balance 597.0 86.084 2.245 Weight 90.2 kg Intake: IV 595 825 225 0.9 NS 545 825 225 Intake, IV Titration 2.0 211.084 447.245 Amount Heparin Sodium,Porcine/ 132.934 357.245 D5w Pmx 25,000 unit In Dextrose/Water 1 500ml. bag @ 10.9 UNITS/KG/HR 19 .99 mls/hr IV .Q24H MERYL Rx#:[id number] Nitroglycerin-D5w Pmx 50 2.0 78.15 mg In Dextrose/Water 1 250ml.bag @ Titrate IV . Q0M MERYL Rx#:[id number] Sodium Chloride 0.9% 1, 90 000 ml @ 10 mls/hr IV . Q24H MERYL Rx#:[id number] Oral 480 Output: Urine 950 1150 Other: Voiding Method Bedpan Toilet Toilet # Voids 1 1 1 # Bowel Movements 1 ABP, PAP, CO, CI - Last Documented Arterial Blood Pressure 132/71 - Exam PHYSICAL EXAM: VITAL SIGNS: [As above] GENERAL: [Sitting up in chair, no acute distress] HEENT: [Pupils equal conjunctiva normal.] NECK: [Supple, no JVD] RESPIRATORY EFFORT:[Normal] LUNGS: [Clear, no wheezes crackles or rhonchi] CARDIOVASCULAR[regular S1 and S2, no edema] GI: [Abdomen soft, nontender, positive bowel sounds.] PSYCH: [Alert and oriented -3, mood and affect normal.] NEURO: No focal deficits Microbiology 05/08/16 16:28 Nasal Swab Nasal Screen MRSA/MSSA (ALLAN) - Final 05/08/16 16:57 Urine,Voided Urine Culture - Final - Labs CBC & Chem 7: 05/10/16 14:55 05/10/16 04:27 Labs: Abnormal Lab Results - Last 24 Hours (Table) 05/08/16 05/08/16 05/08/16 Range/Units 16:40 16:45 16:57 APTT (22.0-30.0) sec Glucose (74-99) mg/dL Hemoglobin A1c 6.6 H (4.2-6.1) % Troponin I (0.000-0.034) ng/mL Total Protein (6.3-8.2) g/dL Albumin (3.5-5.0) g/dL Ur Specific [place] >1.050 H (1.001-1.035) Urine Blood Moderate H (Negative) Urine Bacteria Rare H (None) /hpf Urine Mucus Rare H (None) /hpf Crossmatch See Detail 05/09/16 05/09/16 05/09/16 Range/Units 00:04 06:58 06:58 APTT 36.2 H (22.0-30.0) sec Glucose 143 H (74-99) mg/dL Hemoglobin A1c (4.2-6.1) % Troponin I 2.720 H* (0.000-0.034) ng/mL Total Protein 5.7 L (6.3-8.2) g/dL Albumin 3.0 L (3.5-5.0) g/dL Ur Specific [place] (1.001-1.035) Urine Blood (Negative) Urine Bacteria (None) /hpf Urine Mucus (None) /hpf Crossmatch 05/09/16 05/09/16 Range/Units 06:58 15:14 APTT 79.5 H 44.4 H (22.0-30.0) sec Glucose (74-99) mg/dL Hemoglobin A1c (4.2-6.1) % Troponin I (0.000-0.034) ng/mL Total Protein (6.3-8.2) g/dL Albumin (3.5-5.0) g/dL Ur Specific [place] (1.001-1.035) Urine Blood (Negative) Urine Bacteria (None) /hpf Urine Mucus (None) /hpf Crossmatch Microbiology - Last 24 Hours (Table) 05/08/16 16:28 Nasal Screen MRSA/MSSA (ALLAN) - Preliminary Nasal Swab 05/08/16 16:57 Urine Culture - Preliminary Urine,Voided Assessment and Plan Plan: 1. [acute non-STEMI, status post cardiac cath with severe triple vessel disease] . 2. [accelerated hypertension]. 3. []Acute renal failure secondary to intravascular volume depletion. 4. Lifelong, ongoing nicotine abuse 4. [Hyperlipidemia].]. Plan: Continue current medication regime, aspirin, beta kun, statin, nitro and heparin drips, monitoring and symptomatic treatment. Aggressive pulmonary toileting. Smoking cessation readdressed. As mentioned above scheduled for CABG tomorrow morning. Further recommendations to follow. The impression and plan of care has been dictated as directed. : I performed a H&P examination of this patient and discussed the same with the dictator. I agree with the dictator's note. Any additional findings/opinions/ etc. will be noted.
[2016-05-10 16:14] LABS: Glucose,Whole Blood 125 mg/dL (75-99)
[2016-05-10 16:32] LABS: Manual Review Performed; RBC Morphology Normal
[2016-05-10] MEDS: MILRINONE-D5W PMX 20 MG in DEXTROSE/WATER 1 100ML.BAG IV SCH (16:53)
[2016-05-10] MEDS: ceFAZolin 2 GM in SODIUM CHLORIDE 0.9% 100 ML IVPB SCH (16:54)
[2016-05-10] MEDS: CLEVIDIPINE BUTYRATE 25 MG in EMPTY BAG 1 BAG IV SCH (16:55)
[2016-05-10 17:25] LABS: Glucose,Whole Blood 114 mg/dL (75-99)
--- NOTE | 2016-05-10 17:29 | P.PN ---
Progress Note - Text Date of service 05/10/2016 Progress note being dictated for Dr. Blandon. Interval history: Patient was not seen today as patient is in surgery for CABG.
[2016-05-10 17:38] LABS: Glucose,Whole Blood 99 mg/dL (75-99)
[2016-05-10] MEDS: SODIUM CHLORIDE 0.9% 1,000 ML IV SCH (17:44)
[2016-05-10 17:55] LABS: ABG PCO2 49 mmHg (35-45); ABG PH 7.31 (7.35-7.45); ABG PO2 286 mmHg (83-108)
[2016-05-10 17:56] LABS: ABG HCO3 24 mmol/L (21-25); ABG TCO2 26 mmol/L (19-24)
[2016-05-10 17:57] LABS: ABG Base Excess -1.4 mmol/L
[2016-05-10 18:06] LABS: Glucose,Whole Blood 115 mg/dL (75-99)
[2016-05-10 18:48] LABS: Ionized Calcium 4.8 mg/dL (4.5-5.3)
[2016-05-10 18:54] LABS: Basophils % (A) 0 %; CH 30.6; CHCM 31.9; Eosinophils # (A) 0.1 k/uL (0-0.7); Eosinophils % (A) 1 %; HCT 21.9 % (34.0-46.0); HDW 2.67; HGB 7.2 gm/dL (11.4-16.0); Luc # (Auto) 0.24; Luc % (Auto) 3; Lymphocytes # (A) 1.2 k/uL (1.0-4.8); Lymphocytes % (A) 16 %; MCH 31.7 pg (25.0-35.0); MCHC 32.8 g/dL (31.0-37.0); MCV 96.5 fL (80.0-100.0); Mean Platelet Volume 8.4; Monocytes # (A) 0.5 k/uL (0-1.0); Monocytes % (A) 6 %; Neutrophils # (A) 5.6 k/uL (1.3-7.7); Neutrophils % (A) 73 %; RBC 2.26 m/uL (3.80-5.40); RDW 13.9 % (11.5-15.5); WBC 7.6 k/uL (3.8-10.6); WBC (Perox) 7.96
--- NOTE | 2016-05-10 18:54 | OP ---
DATE OF SERVICE: 05/10/3016 SURGEON: Chanell Kohli MD CLINICAL SERVICES SPECIALIST: MITZY Oreilly and MITZY Juarez PREOPERATIVE DIAGNOSES: 1. Triple-vessel coronary artery disease with non-ST elevation myocardial infarction. 2. Overall preserved left ventricular function. 3. Hypertension. 4. Hyperlipidemia. 5. Obesity. 6. Untreated diabetes. POSTOPERATIVE DIAGNOSES: 1. Triple-vessel coronary artery disease with non-ST elevation myocardial infarction. 2. Overall preserved left ventricular function. 3. Hypertension. 4. Hyperlipidemia. 5. Obesity. 6. Untreated diabetes. OPERATION: 1. Triple coronary artery bypass grafting using the left internal mammary artery to the mid left anterior descending artery, reverse saphenous vein graft from the aorta to the lateral branching of the first diagonal artery, reverse saphenous vein graft from the aorta to the right coronary artery. 2. Endoscopic harvesting of the left greater saphenous vein. 3. Intraoperative transesophageal echocardiogram and epiaortic scanning. 4. Intraoperative graft flow measurements using the Medistim machine. ANESTHESIA: ESTIMATED BLOOD LOSS: SPECIMENS REMOVED: COMPLICATIONS: OPERATIVE FINDINGS: INDICATIONS FOR SURGERY: Patient is a 50-year-old lady with a known past medical history of hypertension and hyperlipidemia, but has not been taking her medication for several years now, who presented with several weeks history of angina and a hypertensive crisis at this point. She had some troponin elevation. Workup included a cardiac catheterization that showed diffuse left main disease and ostial right coronary artery disease. Two-D echo showed overall preserved left ventricular function with left ventricular hypertrophy and no significant valvular abnormality. Patient was cooled down for a couple of days as we conducted our preoperative testing and at this point is brought in for coronary artery bypass to her LAD, diagonal artery which seems to be supplying most of the lateral wall as well as circumflex artery seems to be diminutive and to the right coronary artery. The risks, benefits and alternatives were discussed with her and her family. They understood them and agreed to proceed. DESCRIPTION OF PROCEDURE: Patient in supine position. In the preoperative holding area, right internal jugular [place]-Kim catheter and right radial arterial line were placed. She had normal PA pressure and good cardiac index. Subsequently she was brought to the operating room, where general endotracheal anesthesia was induced uneventfully. Patient received 2 g of Cefazolin intravenously. The Cortes catheter was inserted. The chest, abdomen and both lower extremities were prepped and draped using ChloraPrep. Ioban was used to cover the skin. Transesophageal echocardiogram confirmed the preoperative finding of preserved left ventricular function and no significant valvular abnormalities. Midline sternotomy was performed and there was a thick subcutaneous fat layer. The bone was mildly osteoporotic. The sternum was narrow. The left hemisternum was elevated and the left internal mammary artery was harvested in a semi-skeletonized fashion. The left pleuron was intentionally opened in this process and was drained with a 28 Mong[place]ian chest tube. The right pleuron remained grossly intact. We gave 5000 units of heparin before double clipping the distal aspect of the mammary artery, transecting it. It had an excellent pulsatile flow in it. In the same setting, the left greater saphenous vein was harvested endoscopically from groin to above ankle level after administration of 2500 units of heparin. All the branches were tied. The leg incisions were closed over a JOHN drain. Mediastinal fat was transected between 2 ties. Epiaortic scanning revealed normal ascending aorta. Pericardium was opened in an inverted T fashion and pericardial cradle was created. Findings included a short small aorta and a normal-sized heart. The LAD appeared totally intramyocardial. After systemic heparinization and placement of respective pursestrings, aortic cannulation at the level of the proximal arch using a 21 Mong[place]ian soft flow cannula and venous cannulation using a triple staged 29 Medtronic venous cannula via the right atrial appendage was performed. Antegrade as well as retrograde cardioplegia catheters were placed. The mammary artery was prepared and appeared to be around 1.5 mm in diameter, thin-walled with good flow in it. The vein was prepared and appeared to be of reasonably good quality, around 4 mm in diameter. Cardiopulmonary bypass was initiated and we kept the temperature normal at that point, as we were looking for the target. The right coronary artery appeared to be thin-walled before its bifurcation and adequate for bypass. I exposed the high diagonal artery, and I could see the lateral branching which was the site for bypass. To localize the left anterior descending artery, we used the epiaortic probe to help finding that the deep intramyocardial LAD that I finally found very high in its mid aspect by the pulmonary artery and it appeared to be thin-walled at that level and adequate for bypass. During 72 minutes of aortic clamping myocardial protection was achieved with an initial dose of around 500 mL of cold blood cardioplegia given antegrade with adequate arrest at 100 mL followed by another 500 mL of retrograde cold blood cardioplegia. All subsequent doses were given retrograde at 15 minutes interval. The last dose was warm blood, as we were constructing the last proximal anastomosis. The first distal anastomosis was between a segment of reverse saphenous vein graft and the right coronary artery before its bifurcation, which was thin-walled, around 2 mm in diameter, using Prolene 7-0 in continuous fashion. That anastomosis was totally hemostatic with good flow in it. The vein was measured to length and cut. The second distal anastomosis between another segment of reverse saphenous vein graft and the lateral branching of the first diagonal artery, which was opened, was around 1.75 mm in diameter and thin-walled, using Prolene 7-0 in continuous fashion. There was also adequate flow into graft with no leak. The third and last distal anastomosis was the left internal mammary artery and mid aspect of the left anterior descending artery, which was around 1.5 mm in diameter and thin-walled, using Prolene 7-0 in continuous fashion. At this point, attention was moved to performing the 2 proximal anastomoses of the 2 vein grafts. Two buttons of 4 mm each were punched out of the ascending aorta and the 2 proximal anastomoses were constructed using Prolene 6-0 in continuous fashion. We were giving warm blood as we were constructing the last proximal anastomosis and patient was being re-warmed during that time. Patient was given lidocaine and magnesium. De-airing maneuvers were performed and the aorta was unclamped. Patient regained spontaneous sinus rhythm. After a period of re-perfusion and after ensuring adequate hemostasis at the level of the proximal and distal anastomoses, we were able to wean off cardiopulmonary bypass without the need of any inotropic support. LULA showed good left ventricular function. Test dose and full dose protamine was given. Decannulation proceeded. The venous cannulation site needed to be reinforced with a pledgeted Prolene as well as a 6-0 tie. The rest did not need reinforcement. One bipolar ventricular pacing wire was driven via the inferior aspect of the right ventricle. The pericardial fat was loosely approximated over the right ventricle and the mediastinal fat was approximated over the aorta, covering all grafts. One 32 Mongolian chest tube was placed in the substernal plane and affixed to the skin. After ensuring adequate hemostasis and hemodynamics and after correct sponge, instrument and needle count, the sternum was closed using 5 [id number] [place] cable after interposing fibrillar between the sternal edges. Thorough irrigation with Cefazolin followed. The rest of the closure proceeded in layers. Skin glue cement was applied. Patient did not receive any blood bank product and received 500 mL of Cell Saver blood. She was transferred to the ICU in stable condition with a normal EKG and good hemodynamics. We measured graft flows during the procedure and the flow into the vein graft going to the right coronary artery was 58 mL per minute, pulsatility index of 1.8 and diastolic filling of 47%, showing excellent graft. The flow into the vein graft going to the diagonal artery was 103 mL per minute, pulsatility index of 2.3 and diastolic filling of 62%, also show an excellent graft. The flow into the mammary artery going into the left anterior descending artery was 25 mL per minute, pulsatility index of 2, diastolic filling of 32%, showing excellent graft. With that, procedure was terminated.
[2016-05-10 18:56] LABS: ALT 58 U/L (9-52); AST 109 U/L (14-36); Alkaline Phosphatase 24 U/L (38-126); Anion Gap 9 mmol/L; Blood Urea Nitrogen 9 mg/dL (7-17); Carbon Dioxide 25 mmol/L (22-30); Chloride 106 mmol/L (98-107); Glucose 138 mg/dL (74-99); Magnesium 2.5 mg/dL (1.6-2.3); Non-African American GFR(MDRD) >60 (>60 ml/min/1.73 sqM); Potassium 3.7 mmol/L (3.5-5.1); Sodium 140 mmol/L (137-145); Total Bilirubin 1.3 mg/dL (0.2-1.3); Total Protein 4.3 g/dL (6.3-8.2)
[2016-05-10] MEDS: ACETAMINOPHEN IV (For NPO) 1,000 MG in EMPTY BAG 1 BAG IVPB SCH (18:57)
[2016-05-10 18:59] LABS: Glucose,Whole Blood 156 mg/dL (75-99)
[2016-05-10 19:59] LABS: Glucose,Whole Blood 138 mg/dL (75-99)
[2016-05-10] MEDS: POTASSIUM CHLORIDE 10 MEQ in WATER FOR INJECTION 1 100ML.BAG IVPB SCH ×2 (20:30→21:02)
[2016-05-10 21:01] LABS: Glucose,Whole Blood 193 mg/dL (75-99)
[2016-05-10 22:23] LABS: Glucose,Whole Blood 187 mg/dL (75-99)
[2016-05-10 22:38] LABS: Basophils # (A) 0.1 k/uL (0-0.2); Basophils % (A) 1 %; CH 30.8; CHCM 31.9; Eosinophils % (A) 0 %; HCT 22.6 % (34.0-46.0); HDW 2.64; HGB 7.3 gm/dL (11.4-16.0); Luc # (Auto) 0.18; Luc % (Auto) 3; Lymphocytes # (A) 0.6 k/uL (1.0-4.8); Lymphocytes % (A) 8 %; MCH 31.4 pg (25.0-35.0); MCHC 32.2 g/dL (31.0-37.0); MCV 97.4 fL (80.0-100.0); Mean Platelet Volume 8.9; Monocytes # (A) 0.3 k/uL (0-1.0); Monocytes % (A) 5 %; Neutrophils # (A) 5.9 k/uL (1.3-7.7); Neutrophils % (A) 83 %; RBC 2.32 m/uL (3.80-5.40); RDW 13.9 % (11.5-15.5); WBC 7.1 k/uL (3.8-10.6); WBC (Perox) 7.57
[2016-05-11] MEDS: PHENYLEPHRINE 40 MG in SODIUM CHLORIDE 0.9% 250 ML IV SCH ×3 (00:15→21:49)
[2016-05-11 00:19] LABS: Glucose,Whole Blood 166 mg/dL (75-99)
[2016-05-11] MEDS: ACETAMINOPHEN IV (For NPO) 1,000 MG in EMPTY BAG 1 BAG IVPB SCH ×4 (00:22→17:22)
[2016-05-11] MEDS: ceFAZolin 2 GM in SODIUM CHLORIDE 0.9% 100 ML IVPB SCH ×2 (00:23→08:19)
[2016-05-11] MEDS: HEPARIN SODIUM,PORCINE 5,000 UNIT/ML 1 ML VIAL SQ SCH ×4 (00:23→23:58)
[2016-05-11 00:42] LABS: ABG HCO3 22 mmol/L (21-25); ABG PCO2 46 mmHg (35-45); ABG PO2 77 mmHg (83-108)
[2016-05-11 00:43] LABS: ABG Base Excess -3.6 mmol/L; ABG TCO2 23 mmol/L (19-24)
[2016-05-11] MEDS: IPRATROPIUM-ALBUTEROL 3 ML NEB INHALATION SCH ×6 (00:55→19:01)
[2016-05-11] MEDS: MILRINONE-D5W PMX 20 MG in DEXTROSE/WATER 1 100ML.BAG IV SCH ×3 (01:03→21:50)
[2016-05-11 01:11] LABS: Glucose,Whole Blood 166 mg/dL (75-99)
[2016-05-11 02:13] LABS: Glucose,Whole Blood 177 mg/dL (75-99)
[2016-05-11] MEDS: CLEVIDIPINE BUTYRATE 25 MG in EMPTY BAG 1 BAG IV SCH (03:15)
[2016-05-11 05:02] LABS: Glucose,Whole Blood 164 mg/dL (75-99)
[2016-05-11 05:48] LABS: Basophils % (A) 0 %; CH 30.8; Eosinophils % (A) 0 %; HCT 23.5 % (34.0-46.0); HGB 7.4 gm/dL (11.4-16.0); Luc # (Auto) 0.11; Luc % (Auto) 2; Lymphocytes # (A) 0.6 k/uL (1.0-4.8); Lymphocytes % (A) 8 %; MCH 30.6 pg (25.0-35.0); MCHC 31.6 g/dL (31.0-37.0); MCV 96.9 fL (80.0-100.0); Mean Platelet Volume 9.7; Monocytes # (A) 0.3 k/uL (0-1.0); Monocytes % (A) 5 %; Neutrophils # (A) 6.4 k/uL (1.3-7.7); Neutrophils % (A) 87 %; RBC 2.43 m/uL (3.80-5.40); WBC 7.4 k/uL (3.8-10.6); WBC (Perox) 7.69
[2016-05-11 05:59] LABS: Ionized Calcium 5.2 mg/dL (4.5-5.3)
[2016-05-11 06:06] LABS: Glucose,Whole Blood 139 mg/dL (75-99)
[2016-05-11] MEDS ORDERED: FUROSEMIDE 10 MG/ML 4 ML VIAL ONE (06:11)
[2016-05-11] MEDS ORDERED: FUROSEMIDE 10 MG/ML 2 ML VIAL IV ONE (06:13)
--- NOTE | 2016-05-11 06:14 | XR ---
Exam: XR CXR 1 VIEW History: Postoperative cardiac surgery. Comparison: 05/10/16. Technique: Single view. Findings: There has been interval removal of the endotracheal tube. The left chest drainage catheter distal tip lies more inferiorly, at the level of the left mid lung. Distal tip of [place]-Kim catheter projects at the expected location of the main pulmonary trunk. A left IJ line distal tip is likely in the superior most portion of the right atrium. Presumed mediastinal drainage catheter does not appear substantially changed. No definite pneumothorax appreciated on the current study. Mild prominence of pulmonary vasculature. No new focal consolidation. Suggestion of residual small bilateral pleural effusions and possible minimal bibasilar consolidation or atelectasis. Impression: Support lines and tubes as discussed in detail above. No new focal consolidation appreciated.
[2016-05-11 06:15] LABS: ALT 66 U/L (9-52); AST 98 U/L (14-36); Alkaline Phosphatase 45 U/L (38-126); Anion Gap 12 mmol/L; Blood Urea Nitrogen 10 mg/dL (7-17); Calcium 8.8 mg/dL (8.4-10.2); Carbon Dioxide 24 mmol/L (22-30); Chloride 105 mmol/L (98-107); Glucose 174 mg/dL (74-99); Non-African American GFR(MDRD) >60 (>60 ml/min/1.73 sqM); Potassium 4.6 mmol/L (3.5-5.1); Sodium 141 mmol/L (137-145); Total Bilirubin 0.7 mg/dL (0.2-1.3); Total Protein 5.1 g/dL (6.3-8.2)
[2016-05-11 07:09] LABS: ABG PCO2 45 mmHg (35-45); ABG PH 7.34 (7.35-7.45)
[2016-05-11 07:11] LABS: ABG Base Excess -1.3 mmol/L; ABG HCO3 24 mmol/L (21-25); ABG PO2 30 mmHg (83-108); ABG TCO2 25 mmol/L (19-24)
[2016-05-11 07:12] LABS: ABG Oxygen Saturation 53.9 % (94-97)
[2016-05-11 07:14] LABS: Glucose,Whole Blood 146 mg/dL (75-99)
[2016-05-11 08:05] LABS: Glucose,Whole Blood 149 mg/dL (75-99)
[2016-05-11] MEDS: METOPROLOL TARTRATE 25 MG TAB PO SCH ×2 (08:20→21:52)
[2016-05-11] MEDS: ATORVASTATIN 40 MG TAB PO SCH (08:59)
[2016-05-11] MEDS: CLOPIDOGREL 75 MG TAB PO SCH (08:59)
[2016-05-11] MEDS: PANTOPRAZOLE 40 MG/10 ML VIAL IVP SCH (08:59)
[2016-05-11] MEDS: ASPIRIN 81 MG CHEW PO SCH (08:59)
[2016-05-11] MEDS ORDERED: ASPIRIN 325 MG TAB PO SCH (09:00)
[2016-05-11 09:18] LABS: Glucose,Whole Blood 138 mg/dL (75-99)
--- NOTE | 2016-05-11 10:05 | P.PN ---
Subjective Principal diagnosis: Triple-vessel coronary artery disease with non-ST elevation myocardial infarction. Overall preserved left ventricular function. Hypertension. Hyperlipidemia. Obesity. Untreated diabetes. POD #1 triple coronary artery bypass grafting using the left internal mammary artery to the mid left anterior descending artery, reverse saphenous vein graft from the aorta to the lateral branching of the first diagonal artery, reverse saphenous vein graft from the aorta to the right coronary artery. Endoscopic harvesting of the left greater saphenous vein. Intraoperative transesophageal echocardiogram and epi-aortic scanning. Intraoperative graft flow measurements using the Medistim machine. Currently sitting up in bed, no apparent distress, sleepy but arousable, states pain is controlled. Objective - Vital Signs Vital signs: Vital Signs Temp 98.6 F 05/10/16 20:00 Pulse 96 05/11/16 08:17 Resp 17 05/11/16 07:00 BP 119/66 05/11/16 07:00 Pulse Ox 97 05/11/16 07:57 Intake & Output 05/10/16 05/11/16 05/11/16 18:59 06:59 18:59 Intake Total 7244.265 3985.927 160.345 Output Total 2160 1295 90 Balance -817.235 52.927 70.345 Weight 92 kg 98.6 kg Intake: IV 33 Intake, IV Titration 2480.888 9253.927 160.345 Amount ACETAMINOPHEN IV (For NPO 200 100 ) 1,000 mg In Empty Bag 1 bag @ 400 mls/hr IVPB Q6HR [facility] Rx#:[id number] Albumin Human 5% 250 ml 1000 As IVPB .[facility] Rx#: [id number] Calcium Gluconate 2,000 100 mg In Sodium Chloride 0.9 % 100 ml @ 100 mls/hr IVPB ONCE PRN Rx#: [id number] Clevidipine Butyrate 25 7.667 mg In Empty Bag 1 bag @ 1 MG/HR 2 mls/hr IV .Q24H [facility] Rx#:[id number] Insulin Regular 100 unit 21.918 10.345 In Sodium Chloride 0.9% 100 ml @ Per Protocol IV .Q0M [facility] Rx#:[id number] Insulin Regular 100 unit 2.025 In Sodium Chloride 0.9% 100 ml @ Titrate IV .Q0M PRN Rx#:[id number] Lactated Ringers 1,000 ml 150 570 50 @ 50 mls/hr IV .Q20H [facility] Rx#:[id number] Milrinone-D5w Pmx 20 mg 5.52 146.842 In Dextrose/Water 1 100ml .bag @ 0.375 MCG/KG/MIN 10.35 mls/hr IV .Q9H40M [facility] Rx#:[id number] Nitroglycerin-D5w Pmx 50 1.5 mg In Dextrose/Water 1 250ml.bag As IV .[facility] Rx#:[id number] Phenylephrine 40 mg In 12.22 Sodium Chloride 0.9% 250 ml @ Per Protocol IV .Q0M PRN Rx#:[id number] Potassium Chloride 10 meq 200 In Water For Injection 1 100ml.bag @ 100 mls/hr IVPB Q1H [facility] Rx#: [id number] Sodium Chloride 0.9% 1, 40 000 ml @ 10 mls/hr IV . Q24H [facility] Rx#:[id number] ceFAZolin 2 gm In Sodium 100 Chloride 0.9% 100 ml @ 100 mls/hr IVPB Q8HR [facility] Rx#:[id number] ceFAZolin 2 gm In Sodium 100 Chloride 0.9% 30 ml @ 60 mls/hr IVPB ONCE ONE Rx#: [id number] Output: Chest Tube Drainage 105 485 30 Chest Tube Left Lateral 20 230 10 Chest Chest Tube Mediastinal 85 255 20 Urine 1555 810 60 Estimated Blood Loss 500 Other: Voiding Method Toilet Indwelling Catheter Incontinent ABP, PAP, CO, CI - Last Documented Arterial Blood Pressure 83/78 Pulmonary Artery Pressure 32/16 Cardiac Output 4.1 Cardiac Index 2.1 - Constitutional General appearance: Present: cooperative, no acute distress - Respiratory Details: Lungs sounds diminished, respirations even and nonlabored, was on a 55% Ventimask this morning now weaned down to 4 L nasal cannula. Only able to achieve 500 mL on incentive spirometry. Left pleural chest tube to -20 cm wall suction, draining serosanguineous fluid, 170 L in the last 8 hours, 250 mL since surgery. Mediastinal chest tube to -20 cm wall suction, draining serosanguineous fluid, 130 mL last 8 hours, 450 mL since surgery. No air leaks present. - Cardiovascular Details: S1, S2 present. Regular rate and rhythm, normal sinus rhythm on telemetry. Ventricular epicardial pacemaker wires present but capped. Chest stable. Generalized edema present. Heart hugger in place with patient demonstrating appropriate use. Teds, SCDs present. - Gastrointestinal Gastrointestinal Comment(s): Abdomen soft, nontender, nondistended. Hypoactive bowel sounds present. Negative flatus at this time. Positive nausea. - Genitourinary Genitourinary Comment(s): Cortes present draining clear, yellow urine. Urine output 40-75 mL per hour. - Integumentary Integumentary Comment(s): Anterior chest wall incision covered with dry intact silver dressing. Left lower extremity EVH site well approximated with JOHN drain present draining minimal serosanguineous drainage. - Musculoskeletal Musculoskeletal: Present: generalized weakness - Psychiatric Psychiatric: Present: A&O x's 3, appropriate affect, intact judgment & insight - Allied health notes Allied health notes reviewed: nursing - Labs CBC & Chem 7: 05/11/16 05:20 05/11/16 05:20 Labs: Abnormal Lab Results - Last 24 Hours (Table) 05/08/16 05/10/16 05/10/16 Range/Units 16:45 10:32 11:18 RBC (3.80-5.40) m/uL Hgb (11.4-16.0) gm/dL Hct (34.0-46.0) % Plt Count (150-450) k/uL Lymphocytes # (1.0-4.8) k/uL PT (9.0-12.0) sec ABG pH (7.35-7.45) ABG pCO2 (35-45) mmHg ABG pO2 (83-108) mmHg ABG Total CO2 (19-24) mmol/L ABG O2 Saturation (94-97) % Glucose (74-99) mg/dL POC Glucose (mg/dL) 160 H 141 H (75-99) mg/dL Calcium (8.4-10.2) mg/dL Magnesium (1.6-2.3) mg/dL AST (14-36) U/L ALT (9-52) U/L Alkaline Phosphatase (38-126) U/L Total Protein (6.3-8.2) g/dL Albumin (3.5-5.0) g/dL Crossmatch See Detail 05/10/16 05/10/16 05/10/16 Range/Units 12:13 12:47 14:00 RBC (3.80-5.40) m/uL Hgb (11.4-16.0) gm/dL Hct (34.0-46.0) % Plt Count (150-450) k/uL Lymphocytes # (1.0-4.8) k/uL PT (9.0-12.0) sec ABG pH (7.35-7.45) ABG pCO2 (35-45) mmHg ABG pO2 (83-108) mmHg ABG Total CO2 (19-24) mmol/L ABG O2 Saturation (94-97) % Glucose (74-99) mg/dL POC Glucose (mg/dL) 231 H 219 H 206 H (75-99) mg/dL Calcium (8.4-10.2) mg/dL Magnesium (1.6-2.3) mg/dL AST (14-36) U/L ALT (9-52) U/L Alkaline Phosphatase (38-126) U/L Total Protein (6.3-8.2) g/dL Albumin (3.5-5.0) g/dL Crossmatch 05/10/16 05/10/16 05/10/16 Range/Units 14:48 14:50 14:55 RBC 2.42 L (3.80-5.40) m/uL Hgb 7.6 L D (11.4-16.0) gm/dL Hct 22.9 L (34.0-46.0) % Plt Count 86 L (150-450) k/uL Lymphocytes # (1.0-4.8) k/uL PT (9.0-12.0) sec ABG pH (7.35-7.45) ABG pCO2 (35-45) mmHg ABG pO2 (83-108) mmHg ABG Total CO2 (19-24) mmol/L ABG O2 Saturation (94-97) % Glucose 138 H (74-99) mg/dL POC Glucose (mg/dL) 152 H (75-99) mg/dL Calcium 8.0 L (8.4-10.2) mg/dL Magnesium 2.5 H (1.6-2.3) mg/dL AST 109 H (14-36) U/L ALT 58 H (9-52) U/L Alkaline Phosphatase 24 L (38-126) U/L Total Protein 4.3 L (6.3-8.2) g/dL Albumin 2.7 L (3.5-5.0) g/dL Crossmatch 05/10/16 05/10/16 05/10/16 Range/Units 14:55 15:23 15:54 RBC (3.80-5.40) m/uL Hgb (11.4-16.0) gm/dL Hct (34.0-46.0) % Plt Count (150-450) k/uL Lymphocytes # (1.0-4.8) k/uL PT 12.7 H (9.0-12.0) sec ABG pH 7.31 L (7.35-7.45) ABG pCO2 49 H (35-45) mmHg ABG pO2 286 H (83-108) mmHg ABG Total CO2 26 H (19-24) mmol/L ABG O2 Saturation 99.0 H (94-97) % Glucose (74-99) mg/dL POC Glucose (mg/dL) 125 H (75-99) mg/dL Calcium (8.4-10.2) mg/dL Magnesium (1.6-2.3) mg/dL AST (14-36) U/L ALT (9-52) U/L Alkaline Phosphatase (38-126) U/L Total Protein (6.3-8.2) g/dL Albumin (3.5-5.0) g/dL Crossmatch 05/10/16 05/10/16 05/10/16 Range/Units 17:06 18:03 18:40 RBC 2.26 L (3.80-5.40) m/uL Hgb 7.2 L (11.4-16.0) gm/dL Hct 21.9 L (34.0-46.0) % Plt Count 88 L (150-450) k/uL Lymphocytes # (1.0-4.8) k/uL PT (9.0-12.0) sec ABG pH (7.35-7.45) ABG pCO2 (35-45) mmHg ABG pO2 (83-108) mmHg ABG Total CO2 (19-24) mmol/L ABG O2 Saturation (94-97) % Glucose (74-99) mg/dL POC Glucose (mg/dL) 114 H 115 H (75-99) mg/dL Calcium (8.4-10.2) mg/dL Magnesium (1.6-2.3) mg/dL AST (14-36) U/L ALT (9-52) U/L Alkaline Phosphatase (38-126) U/L Total Protein (6.3-8.2) g/dL Albumin (3.5-5.0) g/dL Crossmatch 05/10/16 05/10/16 05/10/16 Range/Units 18:57 19:56 20:59 RBC (3.80-5.40) m/uL Hgb (11.4-16.0) gm/dL Hct (34.0-46.0) % Plt Count (150-450) k/uL Lymphocytes # (1.0-4.8) k/uL PT (9.0-12.0) sec ABG pH (7.35-7.45) ABG pCO2 (35-45) mmHg ABG pO2 (83-108) mmHg ABG Total CO2 (19-24) mmol/L ABG O2 Saturation (94-97) % Glucose (74-99) mg/dL POC Glucose (mg/dL) 156 H 138 H 193 H (75-99) mg/dL Calcium (8.4-10.2) mg/dL Magnesium (1.6-2.3) mg/dL AST (14-36) U/L ALT (9-52) U/L Alkaline Phosphatase (38-126) U/L Total Protein (6.3-8.2) g/dL Albumin (3.5-5.0) g/dL Crossmatch 05/10/16 05/10/16 05/11/16 Range/Units 22:20 22:22 00:18 RBC 2.32 L (3.80-5.40) m/uL Hgb 7.3 L (11.4-16.0) gm/dL Hct 22.6 L (34.0-46.0) % Plt Count 80 L (150-450) k/uL Lymphocytes # 0.6 L (1.0-4.8) k/uL PT (9.0-12.0) sec ABG pH (7.35-7.45) ABG pCO2 (35-45) mmHg ABG pO2 (83-108) mmHg ABG Total CO2 (19-24) mmol/L ABG O2 Saturation (94-97) % Glucose (74-99) mg/dL POC Glucose (mg/dL) 187 H 166 H (75-99) mg/dL Calcium (8.4-10.2) mg/dL Magnesium (1.6-2.3) mg/dL AST (14-36) U/L ALT (9-52) U/L Alkaline Phosphatase (38-126) U/L Total Protein (6.3-8.2) g/dL Albumin (3.5-5.0) g/dL Crossmatch 05/11/16 05/11/16 05/11/16 Range/Units 00:32 01:09 02:11 RBC (3.80-5.40) m/uL Hgb (11.4-16.0) gm/dL Hct (34.0-46.0) % Plt Count (150-450) k/uL Lymphocytes # (1.0-4.8) k/uL PT (9.0-12.0) sec ABG pH 7.30 L (7.35-7.45) ABG pCO2 46 H (35-45) mmHg ABG pO2 77 L (83-108) mmHg ABG Total CO2 (19-24) mmol/L ABG O2 Saturation (94-97) % Glucose (74-99) mg/dL POC Glucose (mg/dL) 166 H 177 H (75-99) mg/dL Calcium (8.4-10.2) mg/dL Magnesium (1.6-2.3) mg/dL AST (14-36) U/L ALT (9-52) U/L Alkaline Phosphatase (38-126) U/L Total Protein (6.3-8.2) g/dL Albumin (3.5-5.0) g/dL Crossmatch 05/11/16 05/11/16 05/11/16 Range/Units 05:00 05:20 05:20 RBC 2.43 L (3.80-5.40) m/uL Hgb 7.4 L (11.4-16.0) gm/dL Hct 23.5 L (34.0-46.0) % Plt Count 90 L (150-450) k/uL Lymphocytes # 0.6 L (1.0-4.8) k/uL PT (9.0-12.0) sec ABG pH (7.35-7.45) ABG pCO2 (35-45) mmHg ABG pO2 (83-108) mmHg ABG Total CO2 (19-24) mmol/L ABG O2 Saturation (94-97) % Glucose 174 H (74-99) mg/dL POC Glucose (mg/dL) 164 H (75-99) mg/dL Calcium (8.4-10.2) mg/dL Magnesium (1.6-2.3) mg/dL AST 98 H (14-36) U/L ALT 66 H (9-52) U/L Alkaline Phosphatase (38-126) U/L Total Protein 5.1 L (6.3-8.2) g/dL Albumin (3.5-5.0) g/dL Crossmatch 05/11/16 05/11/16 05/11/16 Range/Units 06:05 06:20 07:12 RBC (3.80-5.40) m/uL Hgb (11.4-16.0) gm/dL Hct (34.0-46.0) % Plt Count (150-450) k/uL Lymphocytes # (1.0-4.8) k/uL PT (9.0-12.0) sec ABG pH 7.34 L (7.35-7.45) ABG pCO2 (35-45) mmHg ABG pO2 30 L* (83-108) mmHg ABG Total CO2 25 H (19-24) mmol/L ABG O2 Saturation 53.9 L (94-97) % Glucose (74-99) mg/dL POC Glucose (mg/dL) 139 H 146 H (75-99) mg/dL Calcium (8.4-10.2) mg/dL Magnesium (1.6-2.3) mg/dL AST (14-36) U/L ALT (9-52) U/L Alkaline Phosphatase (38-126) U/L Total Protein (6.3-8.2) g/dL Albumin (3.5-5.0) g/dL Crossmatch 05/11/16 05/11/16 Range/Units 08:03 09:16 RBC (3.80-5.40) m/uL Hgb (11.4-16.0) gm/dL Hct (34.0-46.0) % Plt Count (150-450) k/uL Lymphocytes # (1.0-4.8) k/uL PT (9.0-12.0) sec ABG pH (7.35-7.45) ABG pCO2 (35-45) mmHg ABG pO2 (83-108) mmHg ABG Total CO2 (19-24) mmol/L ABG O2 Saturation (94-97) % Glucose (74-99) mg/dL POC Glucose (mg/dL) 149 H 138 H (75-99) mg/dL Calcium (8.4-10.2) mg/dL Magnesium (1.6-2.3) mg/dL AST (14-36) U/L ALT (9-52) U/L Alkaline Phosphatase (38-126) U/L Total Protein (6.3-8.2) g/dL Albumin (3.5-5.0) g/dL Crossmatch Microbiology - Last 24 Hours (Table) 05/08/16 16:28 Nasal Screen MRSA/MSSA ([facility]) - Final Nasal Swab - Imaging and Cardiology Chest x-ray: report reviewed, image reviewed Assessment and Plan (1) NSTEMI (non-ST elevated myocardial infarction) Status: Acute (2) Hypertension Status: Acute (3) Hyperlipidemia Status: Acute (4) Diabetes type 2, uncontrolled Status: Acute (5) Obesity, morbid, BMI 40.0-49.9 Status: Acute Plan: 1. Continue aspirin, Plavix, statin, beta kun. 2. Continue Primacor for now. Will wean as cardiac index tolerates 3. Wean O2 as tolerated. 4. Increase activity, out of bed to chair. Physical therapy to follow. 5. Lasix given this morning. Watch I/Os. 6. Monitor labs, daily chest x-rays. 7. Encourage incentive spirometry use. 8. GI/DVT prophylaxis 9. Supportive care. 10. More recommendations as patient progresses. Time with Patient: Greater than 30
--- NOTE | 2016-05-11 10:06 | P.PN ---
Subjective Progress note dated down 05/09/2016 This is a 50-year-old female seen yesterday in consultation. She presented to the emergency room for chest pain. She does have a previous history of acute myocardial infarction. Anyway the patient went to the [facility] was found have significant coronary artery disease. The patient is apparently going for open heart surgery tomorrow. She's currently on room air. Her IVs appointment 9 at 75 mL an hour. The patient is getting IV heparin. Patient otherwise is doing well. I saw her lung function. She is a lifelong nonsmoker. He was on her lung function weren't as good as I expected them to be, there more than adequate to support general anesthesia in her anticipated bypass grafting. Progress note dated 05/10/2016 50-year-old female who is going to have open-heart surgery today. She's accident down in the operating room as we speak. Patient is doing relatively well. His been stable here. I was able to evaluate her baseline the surgical spirometry. She is a lifelong nonsmoker. Lung function weren't satisfactory. Certainly see her again after surgery back here in the ICU. At that time he'll be on the ventilator. We'll make sure she gets updrafts in the form of Xopenex and Atrovent every 4 [id number]. Post extubation patient will also be getting incentive spirometry every hour while awake. All all think she'll do relatively well. Progress note dated 05/11/2016 This is a 50-year-old female postop day #1, status post three-vessel bypass grafting. Currently she is on a 50% Venturi mask and was turned on the 4 L nasal cannula. She's getting an IV with LR 20 mL an hour and insulin drip at 3.5 units an hour and Primacor and moderate dose. She is postop day #1 status post three-vessel bypass grafting. No respiratory problems. She was extubated yesterday. Objective - Vital Signs Vital signs: Vital Signs Temp 98.6 F 05/10/16 20:00 Pulse 96 05/11/16 08:17 Resp 17 05/11/16 07:00 BP 119/66 05/11/16 07:00 Pulse Ox 97 05/11/16 07:57 Intake & Output 05/10/16 05/11/16 05/11/16 18:59 06:59 18:59 Intake Total 2279.840 6469.927 160.345 Output Total 2160 1295 90 Balance -817.235 52.927 70.345 Weight 92 kg 98.6 kg Intake: IV 33 Intake, IV Titration 6970.221 3005.927 160.345 Amount ACETAMINOPHEN IV (For NPO 200 100 ) 1,000 mg In Empty Bag 1 bag @ 400 mls/hr IVPB Q6HR [facility] Rx#:[id number] Albumin Human 5% 250 ml 1000 As IVPB .STK-MED ONE Rx#: [id number] Calcium Gluconate 2,000 100 mg In Sodium Chloride 0.9 % 100 ml @ 100 mls/hr IVPB ONCE PRN Rx#: [id number] Clevidipine Butyrate 25 7.667 mg In Empty Bag 1 bag @ 1 MG/HR 2 mls/hr IV .Q24H [facility] Rx#:[id number] Insulin Regular 100 unit 21.918 10.345 In Sodium Chloride 0.9% 100 ml @ Per Protocol IV .Q0M [facility] Rx#:[id number] Insulin Regular 100 unit 2.025 In Sodium Chloride 0.9% 100 ml @ Titrate IV .Q0M PRN Rx#:[id number] Lactated Ringers 1,000 ml 150 570 50 @ 50 mls/hr IV .Q20H [facility] Rx#:[id number] Milrinone-D5w Pmx 20 mg 5.52 146.842 In Dextrose/Water 1 100ml .bag @ 0.375 MCG/KG/MIN 10.35 mls/hr IV .Q9H40M [facility] Rx#:[id number] Nitroglycerin-D5w Pmx 50 1.5 mg In Dextrose/Water 1 250ml.bag As IV .STK-MED ONE Rx#:[id number] Phenylephrine 40 mg In 12.22 Sodium Chloride 0.9% 250 ml @ Per Protocol IV .Q0M PRN Rx#:[id number] Potassium Chloride 10 meq 200 In Water For Injection 1 100ml.bag @ 100 mls/hr IVPB Q1H [facility] Rx#: [id number] Sodium Chloride 0.9% 1, 40 000 ml @ 10 mls/hr IV . Q24H [facility] Rx#:[id number] ceFAZolin 2 gm In Sodium 100 Chloride 0.9% 100 ml @ 100 mls/hr IVPB Q8HR [facility] Rx#:[id number] ceFAZolin 2 gm In Sodium 100 Chloride 0.9% 30 ml @ 60 mls/hr IVPB ONCE ONE Rx#: [id number] Output: Chest Tube Drainage 105 485 30 Chest Tube Left Lateral 20 230 10 Chest Chest Tube Mediastinal 85 255 20 Urine 1555 810 60 Estimated Blood Loss 500 Other: Voiding Method Toilet Indwelling Catheter Incontinent ABP, PAP, CO, CI - Last Documented Arterial Blood Pressure 83/78 Pulmonary Artery Pressure 32/16 Cardiac Output 4.1 Cardiac Index 2.1 - Exam No acute distress, NG tube and endotracheal tube in place. HEENT examination is grossly unremarkable. Mucous membranes are moist. No oral lesions. Neck supple. Full range of motion. No adenopathy or thyromegaly. Neck veins are flat. Cardiovascular examination reveals regular rhythm rate. S1-S2 normal. No S3- S4 or murmur. Lungs are clear breath sounds are equal. No wheezes or rhonchi. Abdomen is soft bowel sounds are heard. Extremities are intact. Exam dated 05/11/2016 No acute distress, oriented 3. Nasal O2 in place. Neck supple. Full range of motion. No adenopathy. Cardiovascular examination reveals regular rhythm rate. S1-S2 normal. No S3- S4 or murmur. Lungs reveal diminished breath sounds. A few scattered mild rhonchi. No wheezes or crackles. Abdomen soft bowel sounds are heard. Extremities are intact. - Labs CBC & Chem 7: 05/11/16 05:20 05/11/16 05:20 Labs: Abnormal Lab Results - Last 24 Hours (Table) 05/08/16 05/10/16 05/10/16 Range/Units 16:45 10:32 11:18 RBC (3.80-5.40) m/uL Hgb (11.4-16.0) gm/dL Hct (34.0-46.0) % Plt Count (150-450) k/uL Lymphocytes # (1.0-4.8) k/uL PT (9.0-12.0) sec ABG pH (7.35-7.45) ABG pCO2 (35-45) mmHg ABG pO2 (83-108) mmHg ABG Total CO2 (19-24) mmol/L ABG O2 Saturation (94-97) % Glucose (74-99) mg/dL POC Glucose (mg/dL) 160 H 141 H (75-99) mg/dL Calcium (8.4-10.2) mg/dL Magnesium (1.6-2.3) mg/dL AST (14-36) U/L ALT (9-52) U/L Alkaline Phosphatase (38-126) U/L Total Protein (6.3-8.2) g/dL Albumin (3.5-5.0) g/dL Crossmatch See Detail 05/10/16 05/10/16 05/10/16 Range/Units 12:13 12:47 14:00 RBC (3.80-5.40) m/uL Hgb (11.4-16.0) gm/dL Hct (34.0-46.0) % Plt Count (150-450) k/uL Lymphocytes # (1.0-4.8) k/uL PT (9.0-12.0) sec ABG pH (7.35-7.45) ABG pCO2 (35-45) mmHg ABG pO2 (83-108) mmHg ABG Total CO2 (19-24) mmol/L ABG O2 Saturation (94-97) % Glucose (74-99) mg/dL POC Glucose (mg/dL) 231 H 219 H 206 H (75-99) mg/dL Calcium (8.4-10.2) mg/dL Magnesium (1.6-2.3) mg/dL AST (14-36) U/L ALT (9-52) U/L Alkaline Phosphatase (38-126) U/L Total Protein (6.3-8.2) g/dL Albumin (3.5-5.0) g/dL Crossmatch 05/10/16 05/10/16 05/10/16 Range/Units 14:48 14:50 14:55 RBC 2.42 L (3.80-5.40) m/uL Hgb 7.6 L D (11.4-16.0) gm/dL Hct 22.9 L (34.0-46.0) % Plt Count 86 L (150-450) k/uL Lymphocytes # (1.0-4.8) k/uL PT (9.0-12.0) sec ABG pH (7.35-7.45) ABG pCO2 (35-45) mmHg ABG pO2 (83-108) mmHg ABG Total CO2 (19-24) mmol/L ABG O2 Saturation (94-97) % Glucose 138 H (74-99) mg/dL POC Glucose (mg/dL) 152 H (75-99) mg/dL Calcium 8.0 L (8.4-10.2) mg/dL Magnesium 2.5 H (1.6-2.3) mg/dL AST 109 H (14-36) U/L ALT 58 H (9-52) U/L Alkaline Phosphatase 24 L (38-126) U/L Total Protein 4.3 L (6.3-8.2) g/dL Albumin 2.7 L (3.5-5.0) g/dL Crossmatch 05/10/16 05/10/16 05/10/16 Range/Units 14:55 15:23 15:54 RBC (3.80-5.40) m/uL Hgb (11.4-16.0) gm/dL Hct (34.0-46.0) % Plt Count (150-450) k/uL Lymphocytes # (1.0-4.8) k/uL PT 12.7 H (9.0-12.0) sec ABG pH 7.31 L (7.35-7.45) ABG pCO2 49 H (35-45) mmHg ABG pO2 286 H (83-108) mmHg ABG Total CO2 26 H (19-24) mmol/L ABG O2 Saturation 99.0 H (94-97) % Glucose (74-99) mg/dL POC Glucose (mg/dL) 125 H (75-99) mg/dL Calcium (8.4-10.2) mg/dL Magnesium (1.6-2.3) mg/dL AST (14-36) U/L ALT (9-52) U/L Alkaline Phosphatase (38-126) U/L Total Protein (6.3-8.2) g/dL Albumin (3.5-5.0) g/dL Crossmatch 05/10/16 05/10/16 05/10/16 Range/Units 17:06 18:03 18:40 RBC 2.26 L (3.80-5.40) m/uL Hgb 7.2 L (11.4-16.0) gm/dL Hct 21.9 L (34.0-46.0) % Plt Count 88 L (150-450) k/uL Lymphocytes # (1.0-4.8) k/uL PT (9.0-12.0) sec ABG pH (7.35-7.45) ABG pCO2 (35-45) mmHg ABG pO2 (83-108) mmHg ABG Total CO2 (19-24) mmol/L ABG O2 Saturation (94-97) % Glucose (74-99) mg/dL POC Glucose (mg/dL) 114 H 115 H (75-99) mg/dL Calcium (8.4-10.2) mg/dL Magnesium (1.6-2.3) mg/dL AST (14-36) U/L ALT (9-52) U/L Alkaline Phosphatase (38-126) U/L Total Protein (6.3-8.2) g/dL Albumin (3.5-5.0) g/dL Crossmatch 05/10/16 05/10/16 05/10/16 Range/Units 18:57 19:56 20:59 RBC (3.80-5.40) m/uL Hgb (11.4-16.0) gm/dL Hct (34.0-46.0) % Plt Count (150-450) k/uL Lymphocytes # (1.0-4.8) k/uL PT (9.0-12.0) sec ABG pH (7.35-7.45) ABG pCO2 (35-45) mmHg ABG pO2 (83-108) mmHg ABG Total CO2 (19-24) mmol/L ABG O2 Saturation (94-97) % Glucose (74-99) mg/dL POC Glucose (mg/dL) 156 H 138 H 193 H (75-99) mg/dL Calcium (8.4-10.2) mg/dL Magnesium (1.6-2.3) mg/dL AST (14-36) U/L ALT (9-52) U/L Alkaline Phosphatase (38-126) U/L Total Protein (6.3-8.2) g/dL Albumin (3.5-5.0) g/dL Crossmatch 05/10/16 05/10/16 05/11/16 Range/Units 22:20 22:22 00:18 RBC 2.32 L (3.80-5.40) m/uL Hgb 7.3 L (11.4-16.0) gm/dL Hct 22.6 L (34.0-46.0) % Plt Count 80 L (150-450) k/uL Lymphocytes # 0.6 L (1.0-4.8) k/uL PT (9.0-12.0) sec ABG pH (7.35-7.45) ABG pCO2 (35-45) mmHg ABG pO2 (83-108) mmHg ABG Total CO2 (19-24) mmol/L ABG O2 Saturation (94-97) % Glucose (74-99) mg/dL POC Glucose (mg/dL) 187 H 166 H (75-99) mg/dL Calcium (8.4-10.2) mg/dL Magnesium (1.6-2.3) mg/dL AST (14-36) U/L ALT (9-52) U/L Alkaline Phosphatase (38-126) U/L Total Protein (6.3-8.2) g/dL Albumin (3.5-5.0) g/dL Crossmatch 05/11/16 05/11/16 05/11/16 Range/Units 00:32 01:09 02:11 RBC (3.80-5.40) m/uL Hgb (11.4-16.0) gm/dL Hct (34.0-46.0) % Plt Count (150-450) k/uL Lymphocytes # (1.0-4.8) k/uL PT (9.0-12.0) sec ABG pH 7.30 L (7.35-7.45) ABG pCO2 46 H (35-45) mmHg ABG pO2 77 L (83-108) mmHg ABG Total CO2 (19-24) mmol/L ABG O2 Saturation (94-97) % Glucose (74-99) mg/dL POC Glucose (mg/dL) 166 H 177 H (75-99) mg/dL Calcium (8.4-10.2) mg/dL Magnesium (1.6-2.3) mg/dL AST (14-36) U/L ALT (9-52) U/L Alkaline Phosphatase (38-126) U/L Total Protein (6.3-8.2) g/dL Albumin (3.5-5.0) g/dL Crossmatch 05/11/16 05/11/16 05/11/16 Range/Units 05:00 05:20 05:20 RBC 2.43 L (3.80-5.40) m/uL Hgb 7.4 L (11.4-16.0) gm/dL Hct 23.5 L (34.0-46.0) % Plt Count 90 L (150-450) k/uL Lymphocytes # 0.6 L (1.0-4.8) k/uL PT (9.0-12.0) sec ABG pH (7.35-7.45) ABG pCO2 (35-45) mmHg ABG pO2 (83-108) mmHg ABG Total CO2 (19-24) mmol/L ABG O2 Saturation (94-97) % Glucose 174 H (74-99) mg/dL POC Glucose (mg/dL) 164 H (75-99) mg/dL Calcium (8.4-10.2) mg/dL Magnesium (1.6-2.3) mg/dL AST 98 H (14-36) U/L ALT 66 H (9-52) U/L Alkaline Phosphatase (38-126) U/L Total Protein 5.1 L (6.3-8.2) g/dL Albumin (3.5-5.0) g/dL Crossmatch 05/11/16 05/11/16 05/11/16 Range/Units 06:05 06:20 07:12 RBC (3.80-5.40) m/uL Hgb (11.4-16.0) gm/dL Hct (34.0-46.0) % Plt Count (150-450) k/uL Lymphocytes # (1.0-4.8) k/uL PT (9.0-12.0) sec ABG pH 7.34 L (7.35-7.45) ABG pCO2 (35-45) mmHg ABG pO2 30 L* (83-108) mmHg ABG Total CO2 25 H (19-24) mmol/L ABG O2 Saturation 53.9 L (94-97) % Glucose (74-99) mg/dL POC Glucose (mg/dL) 139 H 146 H (75-99) mg/dL Calcium (8.4-10.2) mg/dL Magnesium (1.6-2.3) mg/dL AST (14-36) U/L ALT (9-52) U/L Alkaline Phosphatase (38-126) U/L Total Protein (6.3-8.2) g/dL Albumin (3.5-5.0) g/dL Crossmatch 05/11/16 05/11/16 Range/Units 08:03 09:16 RBC (3.80-5.40) m/uL Hgb (11.4-16.0) gm/dL Hct (34.0-46.0) % Plt Count (150-450) k/uL Lymphocytes # (1.0-4.8) k/uL PT (9.0-12.0) sec ABG pH (7.35-7.45) ABG pCO2 (35-45) mmHg ABG pO2 (83-108) mmHg ABG Total CO2 (19-24) mmol/L ABG O2 Saturation (94-97) % Glucose (74-99) mg/dL POC Glucose (mg/dL) 149 H 138 H (75-99) mg/dL Calcium (8.4-10.2) mg/dL Magnesium (1.6-2.3) mg/dL AST (14-36) U/L ALT (9-52) U/L Alkaline Phosphatase (38-126) U/L Total Protein (6.3-8.2) g/dL Albumin (3.5-5.0) g/dL Crossmatch Microbiology - Last 24 Hours (Table) 05/08/16 16:28 Nasal Screen MRSA/MSSA ([facility]) - Final Nasal Swab Assessment and Plan (1) NSTEMI (non-ST elevated myocardial infarction) Status: Acute Plan: Plan The patient will see the cardiovascular surgeon. Additional recommendations suggestions forthcoming. The patient should do well with surgery. Lifelong nonsmoker. No history of any lung problems. Doesn't use oxygen at home. Unknown inhalers or puffers or anything like that. No prior history of asthma chronic bronchitis emphysema or any lung problem for that matter. Plan dated 05/09/2016 The patient's doing well. Anticipated surgery tomorrow. Lung function were adequate. We'll continue to follow closely. We'll see her after the surgery tomorrow and hopefully wean him quickly from mechanical ventilator. Plan dated 05/10/2016 The patient will be eventually weaned off the mechanical ventilator. We've added updrafts every 4. Once extubated, the patient will begin incentive spirometry every hour while awake. We'll continue to follow. Prognosis is guarded but generally she should do relatively well. Additional additionally, x -rays will be evaluated on a daily basis. Plan dated 05/11/2016 The patient is doing well. We'll continue to follow. We'll continue to wean the oxygen. We'll recommend updrafts in the incentive spirometer. We'll also recommend deep breathing coughing and clearing of secretions. No additional recommendations are made. We'll continue to follow. Prognosis is guarded but generally good. Time with Patient: Less than 30
[2016-05-11 10:10] LABS: Glucose,Whole Blood 154 mg/dL (75-99)
[2016-05-11 11:02] LABS: Glucose,Whole Blood 128 mg/dL (75-99)
[2016-05-11 11:06] LABS: ABG Base Excess 0.9 mmol/L; ABG HCO3 24 mmol/L (21-25); ABG PCO2 37 mmHg (35-45); ABG PH 7.44 (7.35-7.45); ABG PO2 369 mmHg (83-108); ABG TCO2 25 mmol/L (19-24)
[2016-05-11 11:07] LABS: ABG Base Excess -0.6 mmol/L; ABG HCO3 23 mmol/L (21-25); ABG PCO2 35 mmHg (35-45); ABG PH 7.43 (7.35-7.45); ABG PO2 390 mmHg (83-108); ABG TCO2 24 mmol/L (19-24)
[2016-05-11 11:09] LABS: ABG Base Excess -0.3 mmol/L; ABG HCO3 23 mmol/L (21-25); ABG PCO2 36 mmHg (35-45); ABG PH 7.43 (7.35-7.45); ABG PO2 347 mmHg (83-108); ABG TCO2 24 mmol/L (19-24)
[2016-05-11 11:10] LABS: ABG Oxygen Saturation 99.9 % (94-97)
[2016-05-11 11:11] LABS: ABG PCO2 33 mmHg (35-45); ABG PO2 >420 mmHg (83-108)
[2016-05-11 11:12] LABS: ABG Base Excess 2.2 mmol/L; ABG HCO3 25 mmol/L (21-25); ABG TCO2 26 mmol/L (19-24)
[2016-05-11 11:13] LABS: ABG Base Excess 2.3 mmol/L; ABG HCO3 26 mmol/L (21-25); ABG Oxygen Saturation 99.9 % (94-97); ABG PCO2 41 mmHg (35-45); ABG PH 7.43 (7.35-7.45); ABG PO2 289 mmHg (83-108); ABG TCO2 28 mmol/L (19-24)
[2016-05-11 11:17] LABS: ABG Base Excess 1.7 mmol/L; ABG HCO3 26 mmol/L (21-25); ABG Oxygen Saturation 99.9 % (94-97); ABG PCO2 43 mmHg (35-45); ABG PO2 298 mmHg (83-108); ABG TCO2 27 mmol/L (19-24)
[2016-05-11 11:18] LABS: ABG Base Excess -1.9 mmol/L; ABG HCO3 22 mmol/L (21-25); ABG Oxygen Saturation 99.7 % (94-97); ABG PCO2 39 mmHg (35-45); ABG PH 7.38 (7.35-7.45); ABG PO2 197 mmHg (83-108); ABG TCO2 24 mmol/L (19-24)
[2016-05-11 12:18] LABS: Glucose,Whole Blood 145 mg/dL (75-99)
[2016-05-11 13:09] LABS: Glucose,Whole Blood 117 mg/dL (75-99)
[2016-05-11 14:15] LABS: Glucose,Whole Blood 125 mg/dL (75-99)
[2016-05-11] MEDS ORDERED: BISACODYL 10 MG SUPP RECTAL PRN (15:03)
[2016-05-11] MEDS ORDERED: IPRATROPIUM-ALBUTEROL 3 ML NEB INHALATION PRN (15:03)
[2016-05-11] MEDS ORDERED: MAGNESIUM HYDROXIDE 2,400 MG/10 ML CUP PO PRN (15:03)
[2016-05-11 15:27] LABS: Glucose,Whole Blood 116 mg/dL (75-99)
[2016-05-11] MEDS: LACTATED RINGERS 1,000 ML IV SCH (16:12)
[2016-05-11 17:10] LABS: Glucose,Whole Blood 132 mg/dL (75-99)
[2016-05-11] MEDS: MUPIROCIN 2% OINT 22 GM TUBE TOPICAL SCH (17:24)
--- NOTE | 2016-05-11 17:57 | PN ---
This patient's lab tests as well as hemodynamics over the last 24 reviewed. Patient is feeling better. Her respirations are not labored. Hemoglobin is ( ). Respirations are not labored. Patient is afebrile. Heart rate is 90 per minute. The blood pressure is 120/73 mm of mercury. HEART: S1 and S2 heard. Lungs revealed bilateral scattered wheezes. Patient's pulmonary artery pressures are in the range of 28/11 and 12. Patient had 900 mL of urine output up to the IV Lasix this morning. Patient is still on a Primacor drip and cardiac index is 2.0. No significant arrhythmias are noted. We will continue the current medical treatment.
[2016-05-11 18:25] LABS: Glucose,Whole Blood 134 mg/dL (75-99)
[2016-05-11 21:37] LABS: Glucose,Whole Blood 122 mg/dL (75-99)
[2016-05-11] MEDS: SENNOSIDES-DOCUSATE SODIUM 1 EACH TAB PO SCH (21:54)
[2016-05-11 22:41] LABS: Glucose,Whole Blood 134 mg/dL (75-99)
[2016-05-11 22:46] LABS: Glucose,Whole Blood 137 mg/dL (75-99)
[2016-05-11 23:33] LABS: Glucose,Whole Blood 133 mg/dL (75-99)
[2016-05-12 00:11] LABS: Glucose,Whole Blood 129 mg/dL (75-99)
[2016-05-12] MEDS: HYDROcodone/APAP 5-325MG 1 EACH TAB PO PRN ×4 (00:16→21:29)
[2016-05-12 01:07] LABS: Glucose,Whole Blood 146 mg/dL (75-99)
[2016-05-12 02:04] LABS: Glucose,Whole Blood 135 mg/dL (75-99)
[2016-05-12 03:04] LABS: Glucose,Whole Blood 121 mg/dL (75-99)
[2016-05-12 04:03] LABS: Glucose,Whole Blood 124 mg/dL (75-99)
[2016-05-12 05:05] LABS: Glucose,Whole Blood 122 mg/dL (75-99)
[2016-05-12 05:16] LABS: Basophils % (A) 0 %; CH 30.7; CHCM 32.1; Eosinophils % (A) 0 %; HDW 2.73; HGB 7.6 gm/dL (11.4-16.0); Luc % (Auto) 3; Lymphocytes % (A) 11 %; MCH 30.6 pg (25.0-35.0); MCHC 31.7 g/dL (31.0-37.0); MCV 96.3 fL (80.0-100.0); Mean Platelet Volume 8.9; Monocytes # (A) 0.6 k/uL (0-1.0); Monocytes % (A) 6 %; Neutrophils # (A) 7.6 k/uL (1.3-7.7); Neutrophils % (A) 79 %; RBC 2.49 m/uL (3.80-5.40); RDW 14.1 % (11.5-15.5); WBC 9.6 k/uL (3.8-10.6); WBC (Perox) 9.71
[2016-05-12 05:36] LABS: INR 1.8 (<1.1); Prothrombin Time 17.7 sec (9.0-12.0)
[2016-05-12 05:52] LABS: Ionized Calcium 5.3 mg/dL (4.5-5.3)
[2016-05-12 06:05] LABS: ALT 56 U/L (9-52); AST 67 U/L (14-36); Alkaline Phosphatase 45 U/L (38-126); Anion Gap 7 mmol/L; Blood Urea Nitrogen 18 mg/dL (7-17); Calcium 8.9 mg/dL (8.4-10.2); Carbon Dioxide 28 mmol/L (22-30); Chloride 106 mmol/L (98-107); Glucose 105 mg/dL (74-99); Magnesium 1.9 mg/dL (1.6-2.3); Non-African American GFR(MDRD) 58 (>60 ml/min/1.73 sqM); Potassium 4.3 mmol/L (3.5-5.1); Sodium 141 mmol/L (137-145); Total Bilirubin 0.6 mg/dL (0.2-1.3); Total Protein 4.9 g/dL (6.3-8.2)
[2016-05-12 06:31] LABS: Glucose,Whole Blood 91 mg/dL (75-99)
[2016-05-12] MEDS: MAGNESIUM SULFATE-D5W PMX 1 GM in DEXTROSE/WATER 1 100ML.BAG IVPB SCH ×2 (06:36→07:54)
--- NOTE | 2016-05-12 07:43 | XR ---
EXAMINATION TYPE: XR chest 1V portable DATE OF EXAM: 05/12/2016 6:52 AM COMPARISON: 05/11/2016 HISTORY: Postoperative cardiac surgery TECHNIQUE: Single frontal view of the chest is obtained. FINDINGS: Chest tube and [place] catheter are noted. Technique is limited. Cardiomegaly, postopera tive change, bilateral pleural effusion and infiltrates. No sizable pneumothorax IMPRESSION: 1. Postoperative changes with bilateral pleural effusion, consolidation and suspected venous congesti on.
[2016-05-12] MEDS: MILRINONE-D5W PMX 20 MG in DEXTROSE/WATER 1 100ML.BAG IV SCH ×3 (07:54→17:30)
[2016-05-12] MEDS: CLOPIDOGREL 75 MG TAB PO SCH (07:55)
[2016-05-12] MEDS: ASPIRIN 81 MG CHEW PO SCH (07:55)
[2016-05-12] MEDS: HEPARIN SODIUM,PORCINE 5,000 UNIT/ML 1 ML VIAL SQ SCH ×3 (07:55→23:36)
[2016-05-12] MEDS: METOPROLOL TARTRATE 25 MG TAB PO SCH ×2 (07:55→21:31)
[2016-05-12] MEDS: ATORVASTATIN 40 MG TAB PO SCH (07:56)
[2016-05-12] MEDS: PANTOPRAZOLE 40 MG/10 ML VIAL IVP SCH (07:56)
[2016-05-12 08:03] LABS: Glucose,Whole Blood 141 mg/dL (75-99)
[2016-05-12] MEDS: IPRATROPIUM-ALBUTEROL 3 ML NEB INHALATION SCH ×4 (08:36→19:02)
--- NOTE | 2016-05-12 09:42 | P.PN ---
Subjective Progress note dated down 05/09/2016 This is a 50-year-old female seen yesterday in consultation. She presented to the emergency room for chest pain. She does have a previous history of acute myocardial infarction. Anyway the patient went to the [facility] was found have significant coronary artery disease. The patient is apparently going for open heart surgery tomorrow. She's currently on room air. Her IVs appointment 9 at 75 mL an hour. The patient is getting IV heparin. Patient otherwise is doing well. I saw her lung function. She is a lifelong nonsmoker. He was on her lung function weren't as good as I expected them to be, there more than adequate to support general anesthesia in her anticipated bypass grafting. Progress note dated 05/10/2016 50-year-old female who is going to have open-heart surgery today. She's accident down in the operating room as we speak. Patient is doing relatively well. His been stable here. I was able to evaluate her baseline the surgical spirometry. She is a lifelong nonsmoker. Lung function weren't satisfactory. Certainly see her again after surgery back here in the ICU. At that time he'll be on the ventilator. We'll make sure she gets updrafts in the form of Xopenex and Atrovent every 4 [id number]. Post extubation patient will also be getting incentive spirometry every hour while awake. All all think she'll do relatively well. Progress note dated 05/11/2016 This is a 50-year-old female postop day #1, status post three-vessel bypass grafting. Currently she is on a 50% Venturi mask and was turned on the 4 L nasal cannula. She's getting an IV with LR 20 mL an hour and insulin drip at 3.5 units an hour and Primacor and moderate dose. She is postop day #1 status post three-vessel bypass grafting. No respiratory problems. She was extubated yesterday. Progress note dated 05/12/2016 50-year-old female postop day #2 status post via three-vessel bypass grafting. She's doing well. Currently weaned down to nasal O2. Feeling well. The patient said doing much better. The patient's on LR or lactated Ringer's at 20 mL an hour. She is on Primacor 0.2 mics per kilogram per minute and insulin drip at 2 units an hour. Chest tube is apparently a timeout today. She is postop day #2. Objective - Vital Signs Vital signs: Vital Signs Temp 98.6 F 05/10/16 20:00 Pulse 80 05/12/16 08:51 Resp 14 05/12/16 07:00 BP 107/55 05/12/16 07:00 Pulse Ox 95 05/12/16 08:40 Intake & Output 05/11/16 05/12/16 05/12/16 18:59 06:59 18:59 Intake Total 448.083 820.839 284.84 Output Total 1560 690 70 Balance -1111.917 130.839 214.84 Weight 98.3 kg Intake: Intake, IV Titration 448.083 460.839 284.84 Amount ACETAMINOPHEN IV (For NPO 100 ) 1,000 mg In Empty Bag 1 bag @ 400 mls/hr IVPB Q6HR [facility] Rx#:[id number] Insulin Regular 100 unit 10.345 62.327 In Sodium Chloride 0.9% 100 ml @ Per Protocol IV .Q0M [facility]L Rx#:[id number] Lactated Ringers 1,000 ml 280 240 60 @ 20 mls/hr IV .Q24H [facility] Rx#:[id number] Magnesium Sulfate-D5w Pmx 200 1 gm In Dextrose/Water 1 100ml.bag @ 100 mls/hr IVPB Q1H [facility] Rx#: [id number] Milrinone-D5w Pmx 20 mg 57.738 158.512 24.84 In Dextrose/Water 1 100ml .bag @ 0.2 MCG/KG/MIN 5. 52 mls/hr IV .Q18H7M MERYL Rx#:[id number] Oral 360 Output: Chest Tube Drainage 270 170 20 Chest Tube Left Lateral 70 50 10 Chest Chest Tube Mediastinal 200 120 10 Drainage 60 Left Lower 60 Urine 1290 460 50 Other: Voiding Method Indwelling Catheter Indwelling Catheter # Bowel Movements 0 ABP, PAP, CO, CI - Last Documented Arterial Blood Pressure 83/78 Pulmonary Artery Pressure 27/12 Cardiac Output 3.8 Cardiac Index 2.0 - Exam No acute distress, NG tube and endotracheal tube in place. HEENT examination is grossly unremarkable. Mucous membranes are moist. No oral lesions. Neck supple. Full range of motion. No adenopathy or thyromegaly. Neck veins are flat. Cardiovascular examination reveals regular rhythm rate. S1-S2 normal. No S3- S4 or murmur. Lungs are clear breath sounds are equal. No wheezes or rhonchi. Abdomen is soft bowel sounds are heard. Extremities are intact. Exam dated 05/11/2016 No acute distress, oriented 3. Nasal O2 in place. Neck supple. Full range of motion. No adenopathy. Cardiovascular examination reveals regular rhythm rate. S1-S2 normal. No S3- S4 or murmur. Lungs reveal diminished breath sounds. A few scattered mild rhonchi. No wheezes or crackles. Abdomen soft bowel sounds are heard. Extremities are intact. Next Exam dated 05/12/2016 No acute distress, oriented 3. HEENT examination is grossly unremarkable. Mixed membranes are moist. No oral lesions. Next Neck supple. Full range of motion. Next Cardiovascular examination reveals regular rhythm rate. Next Lungs reveal a few scattered rhonchi. Abdomen soft. Extremities are intact. - Labs CBC & Chem 7: 05/12/16 04:50 05/12/16 04:50 Labs: Abnormal Lab Results - Last 24 Hours (Table) 05/10/16 05/10/16 05/10/16 Range/Units 08:36 10:36 10:38 RBC (3.80-5.40) m/uL Hgb (11.4-16.0) gm/dL Hct (34.0-46.0) % Plt Count (150-450) k/uL PT (9.0-12.0) sec ABG pH (7.35-7.45) ABG pCO2 (35-45) mmHg ABG pO2 369 H 390 H 347 H (83-108) mmHg ABG HCO3 (21-25) mmol/L ABG Total CO2 25 H (19-24) mmol/L ABG O2 Saturation 100.0 H 100.0 H 99.9 H (94-97) % ABG Hematocrit 28 L 29 L (34.0-46.0) % ABG Potassium 5.4 H (3.4-4.5) mmol/L BUN (7-17) mg/dL Glucose (74-99) mg/dL POC Glucose (mg/dL) (75-99) mg/dL AST (14-36) U/L ALT (9-52) U/L Total Protein (6.3-8.2) g/dL Albumin (3.5-5.0) g/dL Arterial Blood Potassium 5.4 H (3.4-4.5) mmol/L 05/10/16 05/10/16 05/10/16 Range/Units 11:23 12:16 12:51 RBC (3.80-5.40) m/uL Hgb (11.4-16.0) gm/dL Hct (34.0-46.0) % Plt Count (150-450) k/uL PT (9.0-12.0) sec ABG pH 7.50 H (7.35-7.45) ABG pCO2 33 L (35-45) mmHg ABG pO2 >420 H 289 H 298 H (83-108) mmHg ABG HCO3 26 H 26 H (21-25) mmol/L ABG Total CO2 26 H 28 H 27 H (19-24) mmol/L ABG O2 Saturation 100.0 H 99.9 H 99.9 H (94-97) % ABG Hematocrit 23 L 21 L 20 L* (34.0-46.0) % ABG Potassium 5.1 H 4.7 H (3.4-4.5) mmol/L BUN (7-17) mg/dL Glucose (74-99) mg/dL POC Glucose (mg/dL) (75-99) mg/dL AST (14-36) U/L ALT (9-52) U/L Total Protein (6.3-8.2) g/dL Albumin (3.5-5.0) g/dL Arterial Blood Potassium 5.1 H 4.7 H (3.4-4.5) mmol/L 05/10/16 05/11/16 05/11/16 Range/Units 14:06 09:59 11:00 RBC (3.80-5.40) m/uL Hgb (11.4-16.0) gm/dL Hct (34.0-46.0) % Plt Count (150-450) k/uL PT (9.0-12.0) sec ABG pH (7.35-7.45) ABG pCO2 (35-45) mmHg ABG pO2 197 H (83-108) mmHg ABG HCO3 (21-25) mmol/L ABG Total CO2 (19-24) mmol/L ABG O2 Saturation 99.7 H (94-97) % ABG Hematocrit 21 L (34.0-46.0) % ABG Potassium (3.4-4.5) mmol/L BUN (7-17) mg/dL Glucose (74-99) mg/dL POC Glucose (mg/dL) 154 H 128 H (75-99) mg/dL AST (14-36) U/L ALT (9-52) U/L Total Protein (6.3-8.2) g/dL Albumin (3.5-5.0) g/dL Arterial Blood Potassium (3.4-4.5) mmol/L 05/11/16 05/11/16 05/11/16 Range/Units 12:16 13:07 14:13 RBC (3.80-5.40) m/uL Hgb (11.4-16.0) gm/dL Hct (34.0-46.0) % Plt Count (150-450) k/uL PT (9.0-12.0) sec ABG pH (7.35-7.45) ABG pCO2 (35-45) mmHg ABG pO2 (83-108) mmHg ABG HCO3 (21-25) mmol/L ABG Total CO2 (19-24) mmol/L ABG O2 Saturation (94-97) % ABG Hematocrit (34.0-46.0) % ABG Potassium (3.4-4.5) mmol/L BUN (7-17) mg/dL Glucose (74-99) mg/dL POC Glucose (mg/dL) 145 H 117 H 125 H (75-99) mg/dL AST (14-36) U/L ALT (9-52) U/L Total Protein (6.3-8.2) g/dL Albumin (3.5-5.0) g/dL Arterial Blood Potassium (3.4-4.5) mmol/L 05/11/16 05/11/16 05/11/16 Range/Units 15:25 17:08 18:23 RBC (3.80-5.40) m/uL Hgb (11.4-16.0) gm/dL Hct (34.0-46.0) % Plt Count (150-450) k/uL PT (9.0-12.0) sec ABG pH (7.35-7.45) ABG pCO2 (35-45) mmHg ABG pO2 (83-108) mmHg ABG HCO3 (21-25) mmol/L ABG Total CO2 (19-24) mmol/L ABG O2 Saturation (94-97) % ABG Hematocrit (34.0-46.0) % ABG Potassium (3.4-4.5) mmol/L BUN (7-17) mg/dL Glucose (74-99) mg/dL POC Glucose (mg/dL) 116 H 132 H 134 H (75-99) mg/dL AST (14-36) U/L ALT (9-52) U/L Total Protein (6.3-8.2) g/dL Albumin (3.5-5.0) g/dL Arterial Blood Potassium (3.4-4.5) mmol/L 05/11/16 05/11/16 05/11/16 Range/Units 21:35 22:40 22:45 RBC (3.80-5.40) m/uL Hgb (11.4-16.0) gm/dL Hct (34.0-46.0) % Plt Count (150-450) k/uL PT (9.0-12.0) sec ABG pH (7.35-7.45) ABG pCO2 (35-45) mmHg ABG pO2 (83-108) mmHg ABG HCO3 (21-25) mmol/L ABG Total CO2 (19-24) mmol/L ABG O2 Saturation (94-97) % ABG Hematocrit (34.0-46.0) % ABG Potassium (3.4-4.5) mmol/L BUN (7-17) mg/dL Glucose (74-99) mg/dL POC Glucose (mg/dL) 122 H 134 H 137 H (75-99) mg/dL AST (14-36) U/L ALT (9-52) U/L Total Protein (6.3-8.2) g/dL Albumin (3.5-5.0) g/dL Arterial Blood Potassium (3.4-4.5) mmol/L 05/11/16 05/12/16 05/12/16 Range/Units 23:31 00:10 01:05 RBC (3.80-5.40) m/uL Hgb (11.4-16.0) gm/dL Hct (34.0-46.0) % Plt Count (150-450) k/uL PT (9.0-12.0) sec ABG pH (7.35-7.45) ABG pCO2 (35-45) mmHg ABG pO2 (83-108) mmHg ABG HCO3 (21-25) mmol/L ABG Total CO2 (19-24) mmol/L ABG O2 Saturation (94-97) % ABG Hematocrit (34.0-46.0) % ABG Potassium (3.4-4.5) mmol/L BUN (7-17) mg/dL Glucose (74-99) mg/dL POC Glucose (mg/dL) 133 H 129 H 146 H (75-99) mg/dL AST (14-36) U/L ALT (9-52) U/L Total Protein (6.3-8.2) g/dL Albumin (3.5-5.0) g/dL Arterial Blood Potassium (3.4-4.5) mmol/L 05/12/16 05/12/16 05/12/16 Range/Units 02:02 03:02 04:01 RBC (3.80-5.40) m/uL Hgb (11.4-16.0) gm/dL Hct (34.0-46.0) % Plt Count (150-450) k/uL PT (9.0-12.0) sec ABG pH (7.35-7.45) ABG pCO2 (35-45) mmHg ABG pO2 (83-108) mmHg ABG HCO3 (21-25) mmol/L ABG Total CO2 (19-24) mmol/L ABG O2 Saturation (94-97) % ABG Hematocrit (34.0-46.0) % ABG Potassium (3.4-4.5) mmol/L BUN (7-17) mg/dL Glucose (74-99) mg/dL POC Glucose (mg/dL) 135 H 121 H 124 H (75-99) mg/dL AST (14-36) U/L ALT (9-52) U/L Total Protein (6.3-8.2) g/dL Albumin (3.5-5.0) g/dL Arterial Blood Potassium (3.4-4.5) mmol/L 05/12/16 05/12/16 05/12/16 Range/Units 04:50 04:50 04:50 RBC 2.49 L (3.80-5.40) m/uL Hgb 7.6 L (11.4-16.0) gm/dL Hct 24.0 L (34.0-46.0) % Plt Count 108 L (150-450) k/uL PT 17.7 H (9.0-12.0) sec ABG pH (7.35-7.45) ABG pCO2 (35-45) mmHg ABG pO2 (83-108) mmHg ABG HCO3 (21-25) mmol/L ABG Total CO2 (19-24) mmol/L ABG O2 Saturation (94-97) % ABG Hematocrit (34.0-46.0) % ABG Potassium (3.4-4.5) mmol/L BUN 18 H (7-17) mg/dL Glucose 105 H (74-99) mg/dL POC Glucose (mg/dL) (75-99) mg/dL AST 67 H (14-36) U/L ALT 56 H (9-52) U/L Total Protein 4.9 L (6.3-8.2) g/dL Albumin 3.1 L (3.5-5.0) g/dL Arterial Blood Potassium (3.4-4.5) mmol/L 05/12/16 05/12/16 Range/Units 05:04 08:01 RBC (3.80-5.40) m/uL Hgb (11.4-16.0) gm/dL Hct (34.0-46.0) % Plt Count (150-450) k/uL PT (9.0-12.0) sec ABG pH (7.35-7.45) ABG pCO2 (35-45) mmHg ABG pO2 (83-108) mmHg ABG HCO3 (21-25) mmol/L ABG Total CO2 (19-24) mmol/L ABG O2 Saturation (94-97) % ABG Hematocrit (34.0-46.0) % ABG Potassium (3.4-4.5) mmol/L BUN (7-17) mg/dL Glucose (74-99) mg/dL POC Glucose (mg/dL) 122 H 141 H (75-99) mg/dL AST (14-36) U/L ALT (9-52) U/L Total Protein (6.3-8.2) g/dL Albumin (3.5-5.0) g/dL Arterial Blood Potassium (3.4-4.5) mmol/L Assessment and Plan (1) NSTEMI (non-ST elevated myocardial infarction) Status: Acute Plan: Plan The patient will see the cardiovascular surgeon. Additional recommendations suggestions forthcoming. The patient should do well with surgery. Lifelong nonsmoker. No history of any lung problems. Doesn't use oxygen at home. Unknown inhalers or puffers or anything like that. No prior history of asthma chronic bronchitis emphysema or any lung problem for that matter. Plan dated 05/09/2016 The patient's doing well. Anticipated surgery tomorrow. Lung function were adequate. We'll continue to follow closely. We'll see her after the surgery tomorrow and hopefully wean him quickly from mechanical ventilator. Plan dated 05/10/2016 The patient will be eventually weaned off the mechanical ventilator. We've added updrafts every 4. Once extubated, the patient will begin incentive spirometry every hour while awake. We'll continue to follow. Prognosis is guarded but generally she should do relatively well. Additional additionally, x -rays will be evaluated on a daily basis. Plan dated 05/11/2016 The patient is doing well. We'll continue to follow. We'll continue to wean the oxygen. We'll recommend updrafts in the incentive spirometer. We'll also recommend deep breathing coughing and clearing of secretions. No additional recommendations are made. We'll continue to follow. Prognosis is guarded but generally good. Next Plan dated 05/12/2016 The patient will continue with deep breathing coughing and clearing of secretions. We'll continue weaning the FiO2. Continue with incentive spirometry. Continue with breathing treatments. We'll continue to follow. Time with Patient: Less than 30
[2016-05-12 10:09] LABS: Glucose,Whole Blood 134 mg/dL (75-99)
--- NOTE | 2016-05-12 11:12 | P.PN ---
Subjective Principal diagnosis: Triple-vessel coronary artery disease with non-ST elevation myocardial infarction. Overall preserved left ventricular function. Hypertension. Hyperlipidemia. Obesity. Untreated diabetes. POD #2 triple coronary artery bypass grafting using the left internal mammary artery to the mid left anterior descending artery, reverse saphenous vein graft from the aorta to the lateral branching of the first diagonal artery, reverse saphenous vein graft from the aorta to the right coronary artery. Endoscopic harvesting of the left greater saphenous vein. Intraoperative transesophageal echocardiogram and epi-aortic scanning. Intraoperative graft flow measurements using the Medistim machine. Currently sitting up in chair, no apparent distress, sleepy but arousable, states she is sore. Objective - Vital Signs Vital signs: Vital Signs Temp 98.6 F 05/10/16 20:00 Pulse 77 05/12/16 10:00 Resp 24 05/12/16 10:00 BP 96/55 05/12/16 10:00 Pulse Ox 94 L 05/12/16 10:00 Intake & Output 05/11/16 05/12/16 05/12/16 18:59 06:59 18:59 Intake Total 448.083 820.839 304.84 Output Total 1560 690 120 Balance -1111.917 130.839 184.84 Weight 98.3 kg Intake: Intake, IV Titration 448.083 460.839 304.84 Amount ACETAMINOPHEN IV (For NPO 100 ) 1,000 mg In Empty Bag 1 bag @ 400 mls/hr IVPB Q6HR [facility] Rx#:[id number] Insulin Regular 100 unit 10.345 62.327 In Sodium Chloride 0.9% 100 ml @ Per Protocol IV .Q0M [facility] Rx#:[id number] Lactated Ringers 1,000 ml 280 240 80 @ 20 mls/hr IV .Q24H [facility] Rx#:[id number] Magnesium Sulfate-D5w Pmx 200 1 gm In Dextrose/Water 1 100ml.bag @ 100 mls/hr IVPB Q1H [facility] Rx#: [id number] Milrinone-D5w Pmx 20 mg 57.738 158.512 24.84 In Dextrose/Water 1 100ml .bag @ 0.1 MCG/KG/MIN 2. 76 mls/hr IV .Q24H [facility] Rx #:[id number] Oral 360 Output: Chest Tube Drainage 270 170 20 Chest Tube Left Lateral 70 50 10 Chest Chest Tube Mediastinal 200 120 10 Drainage 60 Left Lower 60 Urine 1290 460 100 Other: Voiding Method Indwelling Catheter Indwelling Catheter Indwelling Catheter # Voids 1 # Bowel Movements 0 0 ABP, PAP, CO, CI - Last Documented Arterial Blood Pressure 83/78 Pulmonary Artery Pressure 29/14 Cardiac Output 3.7 Cardiac Index 2.0 - Constitutional General appearance: Present: cooperative, no acute distress - Respiratory Details: Lungs sounds diminished, respirations even, nonlabored, currently on 2 L nasal cannula. Only able to achieve 250 mL on her incentive spirometry. Weak, ineffective cough. Left pleural chest tube to -20 cm wall suction, draining serosanguineous fluid, any milliliters in the last 8 hours, 120 mL in the last 24 hours. Mediastinal chest tube to -20 cm wall suction, draining serosanguineous fluid, 50 mL the last 8 hours, 300 mL last 24 hours. No air leak present. - Cardiovascular Details: S1, S2 present. Regular rate and rhythm, normal sinus rhythm on telemetry. Chest stable. Heart hugger in place patient demonstrating appropriate use. Generalized edema present. Teds, SCDs present. - Gastrointestinal Gastrointestinal Comment(s): Abdomen soft, nontender, nondistended. Active bowel sounds 4 quadrants. Tolerating diet. - Genitourinary Genitourinary Comment(s): Cortes DC'd this morning. Due to void. - Integumentary Integumentary Comment(s): Anterior chest wall incision covered with dry intact silver dressing. Left lower extremity EVH site well approximated. - Musculoskeletal Musculoskeletal Comment(s): Able to transfer from bed to the recliner without assistance. Musculoskeletal: Present: strength equal bilaterally - Psychiatric Psychiatric: Present: A&O x's 3, appropriate affect, intact judgment & insight - Allied health notes Allied health notes reviewed: nursing - Labs CBC & Chem 7: 05/12/16 04:50 05/12/16 04:50 Labs: Abnormal Lab Results - Last 24 Hours (Table) 05/10/16 05/10/16 05/10/16 Range/Units 08:36 10:36 10:38 RBC (3.80-5.40) m/uL Hgb (11.4-16.0) gm/dL Hct (34.0-46.0) % Plt Count (150-450) k/uL PT (9.0-12.0) sec ABG pH (7.35-7.45) ABG pCO2 (35-45) mmHg ABG pO2 369 H 390 H 347 H (83-108) mmHg ABG HCO3 (21-25) mmol/L ABG Total CO2 25 H (19-24) mmol/L ABG O2 Saturation 100.0 H 100.0 H 99.9 H (94-97) % ABG Hematocrit 28 L 29 L (34.0-46.0) % ABG Potassium 5.4 H (3.4-4.5) mmol/L BUN (7-17) mg/dL Glucose (74-99) mg/dL POC Glucose (mg/dL) (75-99) mg/dL AST (14-36) U/L ALT (9-52) U/L Total Protein (6.3-8.2) g/dL Albumin (3.5-5.0) g/dL Arterial Blood Potassium 5.4 H (3.4-4.5) mmol/L 05/10/16 05/10/16 05/10/16 Range/Units 11:23 12:16 12:51 RBC (3.80-5.40) m/uL Hgb (11.4-16.0) gm/dL Hct (34.0-46.0) % Plt Count (150-450) k/uL PT (9.0-12.0) sec ABG pH 7.50 H (7.35-7.45) ABG pCO2 33 L (35-45) mmHg ABG pO2 >420 H 289 H 298 H (83-108) mmHg ABG HCO3 26 H 26 H (21-25) mmol/L ABG Total CO2 26 H 28 H 27 H (19-24) mmol/L ABG O2 Saturation 100.0 H 99.9 H 99.9 H (94-97) % ABG Hematocrit 23 L 21 L 20 L* (34.0-46.0) % ABG Potassium 5.1 H 4.7 H (3.4-4.5) mmol/L BUN (7-17) mg/dL Glucose (74-99) mg/dL POC Glucose (mg/dL) (75-99) mg/dL AST (14-36) U/L ALT (9-52) U/L Total Protein (6.3-8.2) g/dL Albumin (3.5-5.0) g/dL Arterial Blood Potassium 5.1 H 4.7 H (3.4-4.5) mmol/L 05/10/16 05/11/16 05/11/16 Range/Units 14:06 11:00 12:16 RBC (3.80-5.40) m/uL Hgb (11.4-16.0) gm/dL Hct (34.0-46.0) % Plt Count (150-450) k/uL PT (9.0-12.0) sec ABG pH (7.35-7.45) ABG pCO2 (35-45) mmHg ABG pO2 197 H (83-108) mmHg ABG HCO3 (21-25) mmol/L ABG Total CO2 (19-24) mmol/L ABG O2 Saturation 99.7 H (94-97) % ABG Hematocrit 21 L (34.0-46.0) % ABG Potassium (3.4-4.5) mmol/L BUN (7-17) mg/dL Glucose (74-99) mg/dL POC Glucose (mg/dL) 128 H 145 H (75-99) mg/dL AST (14-36) U/L ALT (9-52) U/L Total Protein (6.3-8.2) g/dL Albumin (3.5-5.0) g/dL Arterial Blood Potassium (3.4-4.5) mmol/L 05/11/16 05/11/16 05/11/16 Range/Units 13:07 14:13 15:25 RBC (3.80-5.40) m/uL Hgb (11.4-16.0) gm/dL Hct (34.0-46.0) % Plt Count (150-450) k/uL PT (9.0-12.0) sec ABG pH (7.35-7.45) ABG pCO2 (35-45) mmHg ABG pO2 (83-108) mmHg ABG HCO3 (21-25) mmol/L ABG Total CO2 (19-24) mmol/L ABG O2 Saturation (94-97) % ABG Hematocrit (34.0-46.0) % ABG Potassium (3.4-4.5) mmol/L BUN (7-17) mg/dL Glucose (74-99) mg/dL POC Glucose (mg/dL) 117 H 125 H 116 H (75-99) mg/dL AST (14-36) U/L ALT (9-52) U/L Total Protein (6.3-8.2) g/dL Albumin (3.5-5.0) g/dL Arterial Blood Potassium (3.4-4.5) mmol/L 05/11/16 05/11/16 05/11/16 Range/Units 17:08 18:23 21:35 RBC (3.80-5.40) m/uL Hgb (11.4-16.0) gm/dL Hct (34.0-46.0) % Plt Count (150-450) k/uL PT (9.0-12.0) sec ABG pH (7.35-7.45) ABG pCO2 (35-45) mmHg ABG pO2 (83-108) mmHg ABG HCO3 (21-25) mmol/L ABG Total CO2 (19-24) mmol/L ABG O2 Saturation (94-97) % ABG Hematocrit (34.0-46.0) % ABG Potassium (3.4-4.5) mmol/L BUN (7-17) mg/dL Glucose (74-99) mg/dL POC Glucose (mg/dL) 132 H 134 H 122 H (75-99) mg/dL AST (14-36) U/L ALT (9-52) U/L Total Protein (6.3-8.2) g/dL Albumin (3.5-5.0) g/dL Arterial Blood Potassium (3.4-4.5) mmol/L 05/11/16 05/11/16 05/11/16 Range/Units 22:40 22:45 23:31 RBC (3.80-5.40) m/uL Hgb (11.4-16.0) gm/dL Hct (34.0-46.0) % Plt Count (150-450) k/uL PT (9.0-12.0) sec ABG pH (7.35-7.45) ABG pCO2 (35-45) mmHg ABG pO2 (83-108) mmHg ABG HCO3 (21-25) mmol/L ABG Total CO2 (19-24) mmol/L ABG O2 Saturation (94-97) % ABG Hematocrit (34.0-46.0) % ABG Potassium (3.4-4.5) mmol/L BUN (7-17) mg/dL Glucose (74-99) mg/dL POC Glucose (mg/dL) 134 H 137 H 133 H (75-99) mg/dL AST (14-36) U/L ALT (9-52) U/L Total Protein (6.3-8.2) g/dL Albumin (3.5-5.0) g/dL Arterial Blood Potassium (3.4-4.5) mmol/L 05/12/16 05/12/16 05/12/16 Range/Units 00:10 01:05 02:02 RBC (3.80-5.40) m/uL Hgb (11.4-16.0) gm/dL Hct (34.0-46.0) % Plt Count (150-450) k/uL PT (9.0-12.0) sec ABG pH (7.35-7.45) ABG pCO2 (35-45) mmHg ABG pO2 (83-108) mmHg ABG HCO3 (21-25) mmol/L ABG Total CO2 (19-24) mmol/L ABG O2 Saturation (94-97) % ABG Hematocrit (34.0-46.0) % ABG Potassium (3.4-4.5) mmol/L BUN (7-17) mg/dL Glucose (74-99) mg/dL POC Glucose (mg/dL) 129 H 146 H 135 H (75-99) mg/dL AST (14-36) U/L ALT (9-52) U/L Total Protein (6.3-8.2) g/dL Albumin (3.5-5.0) g/dL Arterial Blood Potassium (3.4-4.5) mmol/L 05/12/16 05/12/16 05/12/16 Range/Units 03:02 04:01 04:50 RBC (3.80-5.40) m/uL Hgb (11.4-16.0) gm/dL Hct (34.0-46.0) % Plt Count (150-450) k/uL PT (9.0-12.0) sec ABG pH (7.35-7.45) ABG pCO2 (35-45) mmHg ABG pO2 (83-108) mmHg ABG HCO3 (21-25) mmol/L ABG Total CO2 (19-24) mmol/L ABG O2 Saturation (94-97) % ABG Hematocrit (34.0-46.0) % ABG Potassium (3.4-4.5) mmol/L BUN 18 H (7-17) mg/dL Glucose 105 H (74-99) mg/dL POC Glucose (mg/dL) 121 H 124 H (75-99) mg/dL AST 67 H (14-36) U/L ALT 56 H (9-52) U/L Total Protein 4.9 L (6.3-8.2) g/dL Albumin 3.1 L (3.5-5.0) g/dL Arterial Blood Potassium (3.4-4.5) mmol/L 05/12/16 05/12/16 05/12/16 Range/Units 04:50 04:50 05:04 RBC 2.49 L (3.80-5.40) m/uL Hgb 7.6 L (11.4-16.0) gm/dL Hct 24.0 L (34.0-46.0) % Plt Count 108 L (150-450) k/uL PT 17.7 H (9.0-12.0) sec ABG pH (7.35-7.45) ABG pCO2 (35-45) mmHg ABG pO2 (83-108) mmHg ABG HCO3 (21-25) mmol/L ABG Total CO2 (19-24) mmol/L ABG O2 Saturation (94-97) % ABG Hematocrit (34.0-46.0) % ABG Potassium (3.4-4.5) mmol/L BUN (7-17) mg/dL Glucose (74-99) mg/dL POC Glucose (mg/dL) 122 H (75-99) mg/dL AST (14-36) U/L ALT (9-52) U/L Total Protein (6.3-8.2) g/dL Albumin (3.5-5.0) g/dL Arterial Blood Potassium (3.4-4.5) mmol/L 05/12/16 05/12/16 Range/Units 08:01 10:08 RBC (3.80-5.40) m/uL Hgb (11.4-16.0) gm/dL Hct (34.0-46.0) % Plt Count (150-450) k/uL PT (9.0-12.0) sec ABG pH (7.35-7.45) ABG pCO2 (35-45) mmHg ABG pO2 (83-108) mmHg ABG HCO3 (21-25) mmol/L ABG Total CO2 (19-24) mmol/L ABG O2 Saturation (94-97) % ABG Hematocrit (34.0-46.0) % ABG Potassium (3.4-4.5) mmol/L BUN (7-17) mg/dL Glucose (74-99) mg/dL POC Glucose (mg/dL) 141 H 134 H (75-99) mg/dL AST (14-36) U/L ALT (9-52) U/L Total Protein (6.3-8.2) g/dL Albumin (3.5-5.0) g/dL Arterial Blood Potassium (3.4-4.5) mmol/L - Imaging and Cardiology Chest x-ray: report reviewed, image reviewed Assessment and Plan (1) NSTEMI (non-ST elevated myocardial infarction) Status: Acute (2) Hypertension Status: Acute (3) Hyperlipidemia Status: Acute (4) Diabetes type 2, uncontrolled Status: Acute (5) Obesity, morbid, BMI 40.0-49.9 Status: Acute Plan: 1. Continue aspirin, Plavix, statin, beta kun. 2. Continue Primacor for now. Will wean as cardiac index tolerates 3. Wean O2 as tolerated. 4. Increase activity, out of bed to chair. Physical therapy to follow. 5. will add low dose lisinopril with hold parameters 6. Monitor labs, daily chest x-rays. 7. Encourage incentive spirometry use. 8. GI/DVT prophylaxis 9. Supportive care. 10. Will DC mediastinal chest tube today 11. More recommendations as patient progresses. Time with Patient: Greater than 30
[2016-05-12] MEDS ORDERED: LISINOPRIL 5 MG TAB PO SCH (12:00)
[2016-05-12 13:04] LABS: Glucose,Whole Blood 96 mg/dL (75-99)
[2016-05-12] MEDS: LISINOPRIL 2.5 MG TAB PO SCH (13:05)
[2016-05-12] MEDS: PHENYLEPHRINE 40 MG in SODIUM CHLORIDE 0.9% 250 ML IV SCH (13:06)
[2016-05-12 13:36] LABS: ABG PCO2 47 mmHg (35-45); ABG PH 7.39 (7.35-7.45)
[2016-05-12 13:37] LABS: ABG HCO3 27 mmol/L (21-25); ABG PO2 27 mmHg (83-108); ABG TCO2 29 mmol/L (19-24)
[2016-05-12 13:38] LABS: ABG Base Excess 2.8 mmol/L
[2016-05-12 13:58] LABS: Glucose,Whole Blood 97 mg/dL (75-99)
[2016-05-12 16:52] LABS: Glucose,Whole Blood 123 mg/dL (75-99)
[2016-05-12] MEDS: LACTATED RINGERS 1,000 ML IV SCH (17:29)
--- NOTE | 2016-05-12 17:50 | PN ---
This patient is status post coronary artery bypass surgery. Patient is comfortable. She is not in any acute respiratory distress or denies any chest pain. Cardiac rhythm is stable. Patient still requires the Primacor infusion to maintain the cardiac index. Chest x-ray does not show any significant failure. HEART: First and second heart sounds are normal. Lungs are clinically clear to auscultation and percussion. Blood pressure is 138/66 mm of mercury, venous oxygen saturation is 49%, which is low, hemoglobin is 7.6, and the patient's creatinine is 1.0. Patient's PA diastolic pressure is running in the range of 15 to 18. FINAL IMPRESSION: This patient is status post coronary artery bypass surgery with a running borderline cardiac index and low cardiac output. We mixed venous oxygen saturation is low. Patient is currently being maintained on the Primacor drip. There is no evidence of any significant left ventricular failure on the chest x-ray and the PA diastolic pressure is running in the range of 15 to 17. She may benefit from volume supplementation.
[2016-05-12 18:30] LABS: Glucose,Whole Blood 131 mg/dL (75-99)
--- NOTE | 2016-05-12 19:06 | PN ---
DATE OF SERVICE: 05/12/2016 This 50-year-old woman who was admitted with acute lnu-WJ-mqznzou-elevation myocardial infarction underwent triple-vessel coronary artery bypass grafting using RODGERS to LAD, reverse SVG from aorta to lateral branching of the first diagonal artery, reverse SVG from the aorta to RCA as well as endoscopic harvesting of the left greater saphenous vein and intraoperative LULA. The patient tolerated the procedure well. She was extubated. Patient currently has one chest tube in place. The patient also had blood sugars elevated in the 130s. She was on insulin drip 2 to 3 units and 1 unit per hour. Oral intake appears to be erratic at this time. Patient appears to be slightly more alert at this time. Patient is being closely monitored in the ICU. Multiple consultants are following the patient, including Cardiothoracic Surgery. Past medical history reviewed. REVIEW OF SYSTEMS: CARDIOVASCULAR SYSTEM: No angina, palpitations. RESPIRATORY: Occasional cough. GI: No nausea, vomiting. ENDOCRINE: As mentioned earlier. Current medications are reviewed and include: 1. [place] 5 mg q.4 p.r.n. 2. DuoNeb q.i.d. and p.r.n. 3. Aspirin 81 mg daily. 4. Lipitor 40 mg p.o. daily. 5. Cepacol. 6. Dulcolax 10 mg daily p.r.n. 7. Plavix 75 mg p.o. daily. 8. Heparin 5000 units subcutaneously q.8. 9. Lactated Ringer. 10. Zestril 2.5 mg daily. 11. Milk of Magnesia. 12. Reglan. 13. Lopressor 25 mg p.o. b.i.d. 14. Milrinone drip. 15. Zofran. 16. Protonix. 17. Senokot-S. PHYSICAL EXAMINATION: Patient is alert and oriented x3. Pulse is 79, blood pressure ( ), respiration 18, temperature ( ), pulse ox 94% on 2 L. HEENT: Conjunctivae normal. Oral mucosa moist. NECK: No jugular venous distention. No carotid bruit. No lymph node enlargement. CARDIOVASCULAR SYSTEM: S1, S2 muffled. No S3. No S4. RESPIRATORY SYSTEM: Breath sounds diminished at the bases. A few scattered rhonchi and crackles. ABDOMEN: Soft, obese, nontender. LEGS: No edema. No swelling. NERVOUS SYSTEM: No focal deficit. LABS AT THIS TIME: ABGs are noted. Otherwise, WBC 9.6, hemoglobin 7.6. ASSESSMENT: 1. Triple-vessel coronary artery disease, status post coronary artery bypass graft. 2. Anemia; acute postoperative blood loss anemia as expected. 3. Increased random blood sugar and diabetes mellitus, type 2, with hemoglobin A1c of 6.6. 4. Acute vmh-UZ-wwyyomf-elevation myocardial infarction, present on admission. 5. Hypoalbuminemia. 6. Obesity with body mass index of 43.8. 7. History of hypertension. 8. Hyperlipidemia. 9. History of cholecystectomy. 10. FULL CODE. RECOMMENDATIONS AND DISCUSSION: In this 50-year-old woman who presented with multiple complex medical issues, at this time I recommend to continue with the current medications, continue with symptomatic treatment. I recommend continuing with insulin drip until the oral intake is stabilized. Otherwise, continue the rest of the medication and treatment. Incentive spirometry. Bronchodilators. Antiplatelet agents. Beta blockers. EDMUNDO inhibitors. Also recommend close followup in the outpatient setting. Will follow the patient closely with you. Thank you, Dr. Kohli.
[2016-05-12 20:24] LABS: Glucose,Whole Blood 138 mg/dL (75-99)
[2016-05-12 21:22] LABS: Glucose,Whole Blood 151 mg/dL (75-99)
[2016-05-12] MEDS: SENNOSIDES-DOCUSATE SODIUM 1 EACH TAB PO SCH (21:29)
[2016-05-12 22:14] LABS: Glucose,Whole Blood 131 mg/dL (75-99)
[2016-05-12 23:15] LABS: Glucose,Whole Blood 133 mg/dL (75-99)
[2016-05-12] MEDS: ALBUMIN HUMAN 5% 250 ML in EMPTY BAG 1 BAG IVPB ONE ×2 (23:17→23:34)
[2016-05-12] MEDS ORDERED: ALBUMIN HUMAN 5% 250 ML in EMPTY BAG 1 BAG IVPB ONE (23:18)
[2016-05-13 00:04] LABS: Glucose,Whole Blood 134 mg/dL (75-99)
[2016-05-13] MEDS: PHENYLEPHRINE 40 MG in SODIUM CHLORIDE 0.9% 250 ML IV SCH ×2 (01:04→10:32)
[2016-05-13 01:23] LABS: Glucose,Whole Blood 123 mg/dL (75-99)
[2016-05-13 02:14] LABS: Glucose,Whole Blood 125 mg/dL (75-99)
[2016-05-13 04:03] LABS: Glucose,Whole Blood 115 mg/dL (75-99)
[2016-05-13] MEDS: HYDROcodone/APAP 5-325MG 1 EACH TAB PO PRN ×4 (05:18→21:17)
[2016-05-13 05:37] LABS: Glucose,Whole Blood 118 mg/dL (75-99)
[2016-05-13 05:54] LABS: Basophils % (A) 0 %; CH 30.4; CHCM 31.5; Eosinophils # (A) 0.1 k/uL (0-0.7); Eosinophils % (A) 2 %; HCT 23.3 % (34.0-46.0); HDW 2.67; HGB 7.3 gm/dL (11.4-16.0); Hypochromasia Slight; Luc # (Auto) 0.33; Luc % (Auto) 4; Lymphocytes # (A) 1.3 k/uL (1.0-4.8); Lymphocytes % (A) 15 %; MCH 30.5 pg (25.0-35.0); MCHC 31.3 g/dL (31.0-37.0); MCV 97.4 fL (80.0-100.0); Mean Platelet Volume 8.1; Monocytes # (A) 0.6 k/uL (0-1.0); Monocytes % (A) 7 %; Neutrophils % (A) 72 %; RBC 2.39 m/uL (3.80-5.40); RDW 14.1 % (11.5-15.5); WBC 8.4 k/uL (3.8-10.6); WBC (Perox) 8.62
[2016-05-13 06:14] LABS: Ionized Calcium 4.9 mg/dL (4.5-5.3)
[2016-05-13 06:28] LABS: ALT 59 U/L (9-52); AST 48 U/L (14-36); Alkaline Phosphatase 46 U/L (38-126); Anion Gap 6 mmol/L; Blood Urea Nitrogen 26 mg/dL (7-17); Calcium 8.5 mg/dL (8.4-10.2); Carbon Dioxide 30 mmol/L (22-30); Chloride 104 mmol/L (98-107); Glucose 110 mg/dL (74-99); Magnesium 2.1 mg/dL (1.6-2.3); Non-African American GFR(MDRD) 52 (>60 ml/min/1.73 sqM); Potassium 4.6 mmol/L (3.5-5.1); Sodium 140 mmol/L (137-145); Total Bilirubin 0.7 mg/dL (0.2-1.3); Total Protein 4.9 g/dL (6.3-8.2)
[2016-05-13 07:11] LABS: Glucose,Whole Blood 132 mg/dL (75-99)
--- NOTE | 2016-05-13 07:14 | XR ---
EXAMINATION TYPE: XR chest 1V portable DATE OF EXAM: 05/13/2016 6:40 AM COMPARISON: NONE HISTORY: Postop TECHNIQUE: Single frontal view of the chest is obtained. FINDINGS: Chest tube and [place]-Kim catheter are noted. Technique is limited. Cardiomegaly, postopera tive change, bilateral pleural effusion and infiltrates. Findings suspicious for less than 5% left ap ical pneumothorax IMPRESSION: 1. Postoperative changes with bilateral pleural effusion, consolidation and suspected venous congesti on. Cannot exclude a less than 5% left apical pneumothorax
[2016-05-13] MEDS: IPRATROPIUM-ALBUTEROL 3 ML NEB INHALATION SCH ×4 (07:43→19:36)
[2016-05-13] MEDS: ASPIRIN 81 MG CHEW PO SCH (07:57)
[2016-05-13] MEDS: HEPARIN SODIUM,PORCINE 5,000 UNIT/ML 1 ML VIAL SQ SCH ×2 (07:57→15:08)
[2016-05-13] MEDS: ATORVASTATIN 40 MG TAB PO SCH (07:57)
[2016-05-13] MEDS: CLOPIDOGREL 75 MG TAB PO SCH (07:57)
[2016-05-13] MEDS: PANTOPRAZOLE 40 MG TABLET PO SCH (07:57)
[2016-05-13 08:06] LABS: Glucose,Whole Blood 138 mg/dL (75-99)
[2016-05-13] MEDS ORDERED: ALBUMIN HUMAN 5% 500 ML in EMPTY BAG 1 BAG IVPB ONE (09:48)
[2016-05-13] MEDS: METOPROLOL TARTRATE 12.5 MG TAB PO SCH ×2 (10:30→21:40)
[2016-05-13] MEDS: SODIUM CHLORIDE 0.9% 1,000 ML IV SCH (10:32)
--- NOTE | 2016-05-13 10:34 | P.PN ---
Progress Note - Text CV Surgery Nursing Principal diagnosis: Triple-vessel coronary artery disease with non-ST elevation myocardial infarction. Overall preserved left ventricular function. Hypertension. Hyperlipidemia. Obesity. Untreated diabetes. POD #3 triple coronary artery bypass grafting using the left internal mammary artery to the mid left anterior descending artery, reverse saphenous vein graft from the aorta to the lateral branching of the first diagonal artery, reverse saphenous vein graft from the aorta to the right coronary artery. Endoscopic harvesting of the left greater saphenous vein. Intraoperative transesophageal echocardiogram and epi-aortic scanning. Intraoperative graft flow measurements using the Patient awake and alert, she is sitting up to bedside chair, no distress noted, complaining of pain to her posterior left shoulder 4 out of 10 on the pain scale. Vital Signs: Current temperature 99.1F Vital Signs - 24 hr 05/12/16 05/12/16 05/12/16 08:00 08:40 08:51 Temperature Pulse Rate 86 83 80 Respiratory 18 Rate Blood Pressure 106/53 O2 Sat by Pulse 94 L 95 Oximetry 05/12/16 05/12/16 05/12/16 09:00 10:00 11:00 Temperature Pulse Rate 79 77 79 Respiratory 17 24 18 Rate Blood Pressure 86/46 96/55 94/52 O2 Sat by Pulse 93 L 94 L 94 L Oximetry 05/12/16 05/12/16 05/12/16 11:30 11:38 12:00 Temperature Pulse Rate 82 89 79 Respiratory 16 Rate Blood Pressure 138/66 O2 Sat by Pulse 94 L Oximetry 05/12/16 05/12/16 05/12/16 13:00 14:00 15:00 Temperature Pulse Rate 79 81 81 Respiratory 14 18 16 Rate Blood Pressure 119/59 119/71 134/72 O2 Sat by Pulse 95 95 94 L Oximetry 05/12/16 05/12/16 05/12/16 15:51 16:00 16:05 Temperature Pulse Rate 79 83 79 Respiratory 18 Rate Blood Pressure 117/68 O2 Sat by Pulse 95 Oximetry 05/12/16 05/12/16 05/12/16 17:00 18:00 19:00 Temperature Pulse Rate 86 91 91 Respiratory 16 16 18 Rate Blood Pressure 110/62 132/66 87/72 O2 Sat by Pulse 94 L 94 L 94 L Oximetry 05/12/16 05/12/16 05/12/16 19:03 19:16 20:00 Temperature 99.7 F H Pulse Rate 90 90 93 Respiratory 18 Rate Blood Pressure 94/63 O2 Sat by Pulse Oximetry 05/12/16 05/12/16 05/12/16 21:00 22:00 22:22 Temperature Pulse Rate 89 90 79 Respiratory 16 15 16 Rate Blood Pressure 90/55 119/65 119/65 O2 Sat by Pulse 95 95 Oximetry 05/12/16 05/13/16 05/13/16 23:00 00:00 01:00 Temperature 98.6 F Pulse Rate 75 74 79 Respiratory 24 15 59 H Rate Blood Pressure 67/36 75/45 78/49 O2 Sat by Pulse 95 95 96 Oximetry 05/13/16 05/13/16 05/13/16 02:00 03:00 04:00 Temperature 98.8 F Pulse Rate 77 80 74 Respiratory 100 H 76 H 197 H Rate Blood Pressure 116/64 99/47 107/53 O2 Sat by Pulse 96 95 95 Oximetry 05/13/16 05:00 Temperature Pulse Rate 74 Respiratory 19 Rate Blood Pressure 93/56 O2 Sat by Pulse 96 Oximetry ABP, PAP, CO, CI - Last 8 Hours Pulmonary Artery Pressure 30/16 Pulmonary Artery Pressure 34/17 Pulmonary Artery Pressure 40/20 Pulmonary Artery Pressure 40/19 Pulmonary Artery Pressure 33/15 Pulmonary Artery Pressure 31/15 Cardiac Output 3 Cardiac Output 2.8 Cardiac Output 2.8 Cardiac Output 2.8 Cardiac Output 2.8 Cardiac Output 2.8 Cardiac Index 1.5 Labs: Short CBC 05/13/16 Range/Units 05:29 WBC 8.4 (3.8-10.6) k/uL Hgb 7.3 L (11.4-16.0) gm/dL Hct 23.3 L (34.0-46.0) % Plt Count 100 L (150-450) k/uL Neutrophils # 6.0 (1.3-7.7) k/uL BMP 05/13/16 05:29 Sodium 140 Potassium 4.6 Chloride 104 Carbon Dioxide 30 BUN 26 H Creatinine 1.10 H Glucose 110 H Calcium 8.5 Liver Function 05/13/16 Range/Units 05:29 Total Bilirubin 0.7 (0.2-1.3) mg/dL AST 48 H (14-36) U/L ALT 59 H (9-52) U/L Alkaline Phosphatase 46 (38-126) U/L Albumin 3.2 L (3.5-5.0) g/dL IV Fluids: 0.9% normal saline at 20 mL/h Primacor drip at 0.1 mcg/kg/m Insulin drip at 1 unit per hour. Cardiac output: 3.0 Cardiac index: 1.6 Pulmonary artery pressures: 30/10 CVP: 17 Lungs: Essentially clear throughout, diminished bilateral bases. Respirations are unlabored. O2 sat: 94% on 2 L nasal cannula. I/S: 500 mL, reviewed with the patient the importance of using her incentive spirometry every hour while awake. The patient did demonstrate use of the insulin spirometry but will need a follow-up encouragement. Heart: S1S2, regular rhythm and rate, negative for S3, gallop or murmur. Bedside telemetry showing normal sinus rhythm heart rate 85. Sternum stable, chest incision clean with silverlon dressing clean and dry. Heart hugger in place, patient demonstrating proper use of her heart hugger. Left leg incisions clean dry and well approximated. JOHN drain in place, 90 mL of thin serosanguineous drainage in the last 12 hours. Knee-high ADDIS hose and sequential compression devices in place to bilateral lower extremities. Abdomen: Soft, Positive bowel sounds present in all 4 quadrants, negative for bowel movement since surgery. CBGs: 97-133 mg/dL in the last 24 hours. U/O: Adequate, 585 mL output in the last 8 hours, 2000 mL output in the last 24 hours. Chest Tubes: Left pleural chest tube without air leak, 15 mL output in the last 8 hours, 75 mL output in the last 24 hours. 24 hr Total: Intake & Output 05/11/16 05/12/16 05/13/16 05/14/16 06:59 06:59 06:59 07:59 Intake Total 2690.692 3950.899 8771.040 26.41 Output Total 3455 2250 570 Balance -764.308 -981.078 690.040 26.41 Weight 98.6 kg 98.3 kg 98.3 kg Active Medications Hydrocodone Bitart/Acetaminophen ([place] 5-325) 2 each PO Q4HR PRN PRN Reason: Severe Pain Last Admin: 05/13/16 05:18 Dose: 2 each Hydrocodone Bitart/Acetaminophen ([place] 5-325) 1 each PO Q4HR PRN PRN Reason: Moderate Pain Last Admin: 05/12/16 17:34 Dose: 1 each Albuterol/Ipratropium (Duoneb 0.5 Mg-3 Mg/3 Ml Soln) 3 ml INHALATION RT-Q2H PRN PRN Reason: Shortness Of Breath Or Wheezing Albuterol/Ipratropium (Duoneb 0.5 Mg-3 Mg/3 Ml Soln) 3 ml INHALATION RT-QID [facility] Last Admin: 05/13/16 07:43 Dose: 3 ml Aspirin (Aspirin) 81 mg PO DAILY [facility] Last Admin: 05/12/16 07:55 Dose: 81 mg Atorvastatin Calcium (Lipitor) 40 mg PO DAILY [facility] Last Admin: 05/12/16 07:56 Dose: 40 mg Benzocaine/Menthol (Cepacol Lozenge) 1 each MUCOUS MEM Q2H PRN PRN Reason: Sore Throat Bisacodyl (Dulcolax) 10 mg RECTAL DAILY PRN PRN Reason: Constipation Clopidogrel Bisulfate (Plavix) 75 mg PO DAILY [facility] Last Admin: 05/12/16 07:55 Dose: 75 mg Heparin Sodium (Porcine) (Heparin) 5,000 unit SQ Q8HR [facility] Last Admin: 05/12/16 23:36 Dose: 5,000 unit Lactated Ringer's (Lactated Ringers) 1,000 mls @ 20 mls/hr IV .Q24H [facility] Last Admin: 05/12/16 17:29 Dose: 20 mls/hr Insulin Human Regular 100 unit (/ Sodium Chloride) 101 mls @ 0 mls/hr IV .Q0M [facility]; Per Protocol PRN Reason: Protocol Last Titration: 05/13/16 07:04 Dose: Infused Milrinone Lactate/Dextrose 20 (mg/ IV Solution) 100 mls @ 2.76 mls/hr IV .Q24H [facility] PRN Reason: 0.1 MCG/KG/MIN Last Admin: 05/12/16 17:30 Dose: 0.1 mcg/kg/min, 2.76 mls/hr Phenylephrine HCl 40 mg/ (Sodium Chloride) 254 mls @ 19.05 mls/hr IV .[id number] [facility]; 50 MCG/MIN PRN Reason: Protocol Last Admin: 05/13/16 01:04 Dose: 50 mcg/min, 19.05 mls/hr Lisinopril (Zestril) 2.5 mg PO DAILY [facility] Last Admin: 05/12/16 13:05 Dose: 2.5 mg Magnesium Hydroxide (Milk Of Magnesia) 2,400 mg PO BID PRN PRN Reason: Constipation Metoclopramide HCl (Reglan) 10 mg IVP Q4H PRN PRN Reason: Nausea And Vomiting Metoprolol Tartrate (Lopressor) 25 mg PO BID [facility] Last Admin: 05/12/16 21:31 Dose: 25 mg Miscellaneous Information (Magnesium Per Protocol) 1 each MISCELLANE DAILY PRN ; Protocol PRN Reason: Per Protocol Miscellaneous Information (Phosphorus Per Protocol) 1 each MISCELLANE DAILY PRN ; Protocol PRN Reason: Per Protocol Miscellaneous Information (Potassium Per Protocol) 1 each MISCELLANE DAILY PRN ; Protocol PRN Reason: Per Protocol Ondansetron HCl (Zofran) 4 mg IVP Q6HR PRN PRN Reason: Nausea And Vomiting Last Admin: 05/11/16 09:43 Dose: 4 mg Pantoprazole Sodium (Protonix) 40 mg PO DAILY [facility] Senna/Docusate Sodium (Senokot-S) 2 each PO HS [facility] Last Admin: 05/12/16 21:29 Dose: 2 each Sodium Chloride (Saline Flush) 10 ml IV BID [facility] Last Admin: 05/12/16 21:29 Dose: 10 ml Plan: 1. Continue aspirin, Plavix, and statin. 2. We will discontinue the Primacor. 3. We will decrease her metoprolol to 12.5 mg by mouth twice a day and give her a one-time dose of albumin 5% 500 mL for some hypotensive episodes. 4. Increase activity, out of bed to chair. Physical therapy to follow. 5. Discontinue her lisinopril. 6. Monitor labs, daily chest x-rays. 7. Encourage incentive spirometry use. 8. GI/DVT prophylaxis 9. Wean O2 as tolerated 10. Will discontinue her left pleural chest tube today. 11. More recommendations as patient progresses. The patient's left pleural chest tube was removed without incident this morning at 10:25 AM. Suture secured in place, 4 x 4 gauze to cover and secured with tape.
[2016-05-13] MEDS: LISINOPRIL 2.5 MG TAB PO SCH (10:51)
[2016-05-13] MEDS: METOPROLOL TARTRATE 25 MG TAB PO SCH (10:51)
[2016-05-13 11:00] LABS: Glucose,Whole Blood 120 mg/dL (75-99)
[2016-05-13 12:25] LABS: ABG PCO2 50 mmHg (35-45); ABG PH 7.35 (7.35-7.45); ABG PO2 27 mmHg (83-108)
[2016-05-13 12:26] LABS: ABG Base Excess 1.7 mmol/L; ABG HCO3 27 mmol/L (21-25); ABG TCO2 28 mmol/L (19-24)
--- NOTE | 2016-05-13 12:44 | P.PN ---
Subjective Principal diagnosis: This is a very pleasant 50-year-old female patient who presented here on 2016 and was found to have non-ST segment elevation myocardial infarction and severe triple-vessel disease. She also has a history of hypertension, hyperlipidemia, obesity and diabetes mellitus, untreated. She had subsequently undergone a coronary artery bypass grafting surgery utilizing the RODGERS to the LAD, SVG to the first diagonal artery and SVG to the RCA. She is postoperative day #3. She is seen again today in follow-up in the intensive care unit. She is awake and alert in no acute distress. Her pain is well managed. She does continue to require increased encouragement regarding the incentive spirometer and cough and deep breathing exercises. She is only pulling about 500 mL's. Her chest x-ray does show evidence of fluid volume overload with fluid in the minor fissure. She is maintaining good O2 saturations in the 90s on 2 L/m per nasal cannula. She has an IV of lactated Ringer's at 20 mL's per hour. She is also requiring insulin at 1.5 units per hour. Objective - Vital Signs Vital signs: Vital Signs Temp 98.8 F 05/13/16 04:00 Pulse 82 05/13/16 12:05 Resp 18 05/13/16 11:49 BP 121/48 05/13/16 10:00 Pulse Ox 97 05/13/16 10:00 Intake & Output 05/12/16 05/13/16 05/13/16 18:59 06:59 18:59 Intake Total 520.040 740 586.41 Output Total 170 400 150 Balance 350.040 340 436.41 Weight 98.3 kg 98.3 kg Intake: Intake, IV Titration 520.040 740 586.41 Amount Albumin Human 5% 250 ml 250 In Empty Bag 1 bag @ 250 mls/hr IVPB ONCE ONE Rx#: [id number] Albumin Human 5% 250 ml 250 In Empty Bag 1 bag @ 250 mls/hr IVPB ONCE ONE Rx#: [id number] Albumin Human 5% 500 ml 500 In Empty Bag 1 bag @ 250 mls/hr IVPB ONCE ONE Rx#: [id number] Insulin Regular 100 unit 0 6.41 In Sodium Chloride 0.9% 100 ml @ Per Protocol IV .Q0M [facility] Rx#:[id number] Lactated Ringers 1,000 ml 240 240 60 @ 20 mls/hr IV .Q24H [facility] Rx#:[id number] Magnesium Sulfate-D5w Pmx 200 1 gm In Dextrose/Water 1 100ml.bag @ 100 mls/hr IVPB Q1H [facility] Rx#: [id number] Milrinone-D5w Pmx 20 mg 80.040 In Dextrose/Water 1 100ml .bag @ 0.1 MCG/KG/MIN 2. 76 mls/hr IV .Q24H [facility] Rx #:[id number] Sodium Chloride 0.9% 1, 20 000 ml @ 20 mls/hr IV . Q24H [facility] Rx#:[id number] Output: Chest Tube Drainage 70 15 0 Chest Tube Left Lateral 60 15 0 Chest Chest Tube Mediastinal 10 Drainage 135 Left Lower 135 Urine 100 250 150 Other: Voiding Method Indwelling Catheter # Voids 1 1 # Bowel Movements 0 ABP, PAP, CO, CI - Last Documented Arterial Blood Pressure 83/78 Pulmonary Artery Pressure 22/9 Cardiac Output 3.7 Cardiac Index 1.9 - Exam GENERAL EXAM: Alert, comfortable in no apparent distress. HEAD: Normocephalic. EYES: Normal reaction of pupils, equal size. NOSE: Clear with pink turbinates. THROAT: No erythema or exudates. NECK: No masses, no JVD. [place]-Kim in place. CHEST: No chest wall deformity. LUNGS: Equal air entry with crackles in the posterior bases. Chest Tube in place. CVS: S1 and S2 normal with no audible murmurs, regular rhythm. ABDOMEN: No hepatosplenomegaly, normal bowel sounds, no guarding or rigidity. SPINE: No scoliosis or deformity SKIN: No rashes CENTRAL NERVOUS SYSTEM: No focal deficits, tone is normal in all 4 extremities. Extremities: There is trace peripheral edema. No clubbing, no cyanosis. Peripheral pulses are intact. JOHN drain to the left leg. - Labs CBC & Chem 7: 05/13/16 05:29 05/13/16 05:29 Labs: Abnormal Lab Results - Last 24 Hours (Table) 05/12/16 05/12/16 05/12/16 Range/Units 13:00 16:50 18:28 RBC (3.80-5.40) m/uL Hgb (11.4-16.0) gm/dL Hct (34.0-46.0) % Plt Count (150-450) k/uL ABG pCO2 47 H (35-45) mmHg ABG pO2 27 L* (83-108) mmHg ABG HCO3 27 H (21-25) mmol/L ABG Total CO2 29 H (19-24) mmol/L ABG O2 Saturation 49.0 L (94-97) % BUN (7-17) mg/dL Creatinine (0.52-1.04) mg/dL Glucose (74-99) mg/dL POC Glucose (mg/dL) 123 H 131 H (75-99) mg/dL AST (14-36) U/L ALT (9-52) U/L Total Protein (6.3-8.2) g/dL Albumin (3.5-5.0) g/dL 05/12/16 05/12/16 05/12/16 Range/Units 20:23 21:22 22:12 RBC (3.80-5.40) m/uL Hgb (11.4-16.0) gm/dL Hct (34.0-46.0) % Plt Count (150-450) k/uL ABG pCO2 (35-45) mmHg ABG pO2 (83-108) mmHg ABG HCO3 (21-25) mmol/L ABG Total CO2 (19-24) mmol/L ABG O2 Saturation (94-97) % BUN (7-17) mg/dL Creatinine (0.52-1.04) mg/dL Glucose (74-99) mg/dL POC Glucose (mg/dL) 138 H 151 H 131 H (75-99) mg/dL AST (14-36) U/L ALT (9-52) U/L Total Protein (6.3-8.2) g/dL Albumin (3.5-5.0) g/dL 05/12/16 05/13/16 05/13/16 Range/Units 23:13 00:03 01:22 RBC (3.80-5.40) m/uL Hgb (11.4-16.0) gm/dL Hct (34.0-46.0) % Plt Count (150-450) k/uL ABG pCO2 (35-45) mmHg ABG pO2 (83-108) mmHg ABG HCO3 (21-25) mmol/L ABG Total CO2 (19-24) mmol/L ABG O2 Saturation (94-97) % BUN (7-17) mg/dL Creatinine (0.52-1.04) mg/dL Glucose (74-99) mg/dL POC Glucose (mg/dL) 133 H 134 H 123 H (75-99) mg/dL AST (14-36) U/L ALT (9-52) U/L Total Protein (6.3-8.2) g/dL Albumin (3.5-5.0) g/dL 05/13/16 05/13/16 05/13/16 Range/Units 02:12 04:01 05:29 RBC 2.39 L (3.80-5.40) m/uL Hgb 7.3 L (11.4-16.0) gm/dL Hct 23.3 L (34.0-46.0) % Plt Count 100 L (150-450) k/uL ABG pCO2 (35-45) mmHg ABG pO2 (83-108) mmHg ABG HCO3 (21-25) mmol/L ABG Total CO2 (19-24) mmol/L ABG O2 Saturation (94-97) % BUN (7-17) mg/dL Creatinine (0.52-1.04) mg/dL Glucose (74-99) mg/dL POC Glucose (mg/dL) 125 H 115 H (75-99) mg/dL AST (14-36) U/L ALT (9-52) U/L Total Protein (6.3-8.2) g/dL Albumin (3.5-5.0) g/dL 05/13/16 05/13/16 05/13/16 Range/Units 05:29 05:35 07:08 RBC (3.80-5.40) m/uL Hgb (11.4-16.0) gm/dL Hct (34.0-46.0) % Plt Count (150-450) k/uL ABG pCO2 (35-45) mmHg ABG pO2 (83-108) mmHg ABG HCO3 (21-25) mmol/L ABG Total CO2 (19-24) mmol/L ABG O2 Saturation (94-97) % BUN 26 H (7-17) mg/dL Creatinine 1.10 H (0.52-1.04) mg/dL Glucose 110 H (74-99) mg/dL POC Glucose (mg/dL) 118 H 132 H (75-99) mg/dL AST 48 H (14-36) U/L ALT 59 H (9-52) U/L Total Protein 4.9 L (6.3-8.2) g/dL Albumin 3.2 L (3.5-5.0) g/dL 05/13/16 05/13/16 05/13/16 Range/Units 08:03 10:57 11:41 RBC (3.80-5.40) m/uL Hgb (11.4-16.0) gm/dL Hct (34.0-46.0) % Plt Count (150-450) k/uL ABG pCO2 50 H (35-45) mmHg ABG pO2 27 L* (83-108) mmHg ABG HCO3 27 H (21-25) mmol/L ABG Total CO2 28 H (19-24) mmol/L ABG O2 Saturation 47.0 L (94-97) % BUN (7-17) mg/dL Creatinine (0.52-1.04) mg/dL Glucose (74-99) mg/dL POC Glucose (mg/dL) 138 H 120 H (75-99) mg/dL AST (14-36) U/L ALT (9-52) U/L Total Protein (6.3-8.2) g/dL Albumin (3.5-5.0) g/dL Assessment and Plan Plan: Impression: #1 Non-ST segment elevation myocardial infarction. #2 Coronary artery disease status post coronary artery bypass grafting 3. Postoperative day #3. #3 Hypertension. #4 Hyperlipidemia. #5 Diabetes mellitus. Plan: The patient was seen and evaluated by Dr. Titus. Her chest x-ray and labs were reviewed. She is again encouraged regarding the increased use of the incentive spirometer and cough and deep breathing exercises. Continue her current medications. We'll increase her activity as tolerated. We'll continue to follow.
[2016-05-13 17:28] LABS: Glucose,Whole Blood 152 mg/dL (75-99)
[2016-05-13] MEDS: INSULIN LISPRO (humaLOG) 300 UNIT/3 ML VIAL SQ SCH ×3 (17:46→21:15)
--- NOTE | 2016-05-13 19:14 | PN ---
DATE OF SERVICE: 05/13/2016 This 50-year-old woman was admitted after triple-vessel coronary artery disease, also had elevated blood sugars. The patient is being maintained on insulin, anywhere between 1 to 2 units per hour; however, the p.o. intake appears to be erratic at this time. The patient is planning to eat lunch consisting of sandwich at this time. The chest tubes are out as well as the Cord[place] and patient also has some anemia. The most recent chest x-ray, which was personally reviewed by me, showed possible changes of right pleural effusion with consolidation and some congestion, 5% left apical pneumothorax also noted. PAST MEDICAL HISTORY: Reviewed. REVIEW OF SYSTEMS: CARDIOVASCULAR: As mentioned earlier. RESPIRATORY: As mentioned earlier. GI: No nausea. : No dysuria. NERVOUS: No numbness or weakness. Current medications are reviewed and include: 1. [place] 5 mg 2 tablets q.4 p.r.n. 2. DuoNeb q.i.d. and p.r.n. 3. Aspirin 81 mg daily. 4. Lipitor 40 mg daily. 5. Dulcolax 10 mg daily p.r.n. 6. Plavix 75 mg. 7. Heparin 5 subcu q.8. 8. NovoMix 70/30. 9. Humulin-N. 10. Milk of magnesia. 11. Reglan. 12. Lopressor. 13. Zofran. 14. Protonix. 15. Senokot-S. PHYSICAL EXAM: The patient alert and oriented x3. Pulse 81, blood pressure 113/53, respirations 17, temperature normal, pulse ox 96% on 2L. HEENT: Conjunctivae normal. NECK: No jugular venous distension. CARDIOVASCULAR: S1 and S2 muffled. RESPIRATORY: Breath sounds diminished in the bases. Parkinson's in the bases. A few scattered rhonchi and crackles. ABDOMEN: Soft, nontender. No mass palpable. LEGS: No edema. NERVOUS SYSTEM: Higher functions as mentioned. Moves all 4 limbs. No focal deficits. LYMPHATIC: No lymph nodes palpable in neck or axillae. SKIN: No ulcer, rash or bleeding. LABS: Recent ABG noted. Creatinine is 1.10. LFTs are noted. ASSESSMENT: 1. Triple-vessel coronary artery disease, status post coronary artery bypass grafting. 2. Anemia, acute postoperative blood loss anemia as expected. 3. Increased random blood sugar and diabetes mellitus type 2 with hemoglobin A1c of 6.6 on insulin drip. 4. Acute non-ST elevation myocardial infarction present on admission. 5. Atelectasis bilaterally. 6. Hypoalbuminemia. 7. Obesity with a body mass index of 43.8. 8. History of hypertension. 9. Hyperlipidemia. 10. History of cholecystectomy. 11. FULL CODE. RECOMMENDATIONS AND DISCUSSION: In this 50-year-old woman who presented with multiple complex medical issues, we will monitor the patient closely. Continue with the current medications and symptomatic treatment. Recommend to continue with the IV drip at this time and when the patient is able to take regular p.o. feeds, the drip can be stopped and protocol may be initiated with continued close monitoring of the blood sugars. Otherwise, incentive spirometry and continue the rest of the medication. Hemoglobin of 7.3, closely monitor. If the hemoglobin goes below 7, the patient will need transfusion as well. Closely follow with Cardiothoracic Surgery. Further recommendations to follow. JOSE JD
--- NOTE | 2016-05-13 20:17 | P.PN ---
Subjective Principal diagnosis: This patient is status post coronary artery bypass surgery. Patient's PA catheters are removed. Last cardiac index was in the range of 1.9-2. See denies any chest pain mild shortness of breath noted. Objective - Vital Signs Vital signs: Vital Signs Temp 98.2 F 05/13/16 16:00 Pulse 83 05/13/16 19:47 Resp 10 L 05/13/16 19:00 BP 151/73 05/13/16 19:00 Pulse Ox 97 05/13/16 19:00 Intake & Output 05/13/16 05/13/16 05/14/16 06:59 18:59 07:59 Intake Total 740 746.41 20 Output Total 400 1850 Balance 340 -1103.59 20 Weight 98.3 kg Intake: Intake, IV Titration 740 746.41 20 Amount Albumin Human 5% 250 ml 250 In Empty Bag 1 bag @ 250 mls/hr IVPB ONCE ONE Rx#: [id number] Albumin Human 5% 250 ml 250 In Empty Bag 1 bag @ 250 mls/hr IVPB ONCE ONE Rx#: [id number] Albumin Human 5% 500 ml 500 In Empty Bag 1 bag @ 250 mls/hr IVPB ONCE ONE Rx#: [id number] Insulin Regular 100 unit 6.41 In Sodium Chloride 0.9% 100 ml @ Per Protocol IV .Q0M [facility] Rx#:[id number] Lactated Ringers 1,000 ml 240 60 @ 20 mls/hr IV .Q24H [facility] Rx#:[id number] Sodium Chloride 0.9% 1, 180 20 000 ml @ 20 mls/hr IV . Q24H [facility] Rx#:[id number] Output: Chest Tube Drainage 15 0 Chest Tube Left Lateral 15 0 Chest Drainage 135 Left Lower 135 Urine 250 1850 Other: Voiding Method Indwelling Catheter # Voids 1 ABP, PAP, CO, CI - Last Documented Arterial Blood Pressure 83/78 Pulmonary Artery Pressure 32/23 Cardiac Output 3.5 Cardiac Index 1.9 - Exam Patient's vital signs are reviewed. First and second heart sounds are normal. Lungs reveal bilateral scattered wheezes. Patient's echocardiogram reveals overall normal left ventricular systolic function. - Labs CBC & Chem 7: 05/13/16 05:29 05/13/16 05:29 Labs: Abnormal Lab Results - Last 24 Hours (Table) 05/12/16 05/12/16 05/12/16 Range/Units 20:23 21:22 22:12 RBC (3.80-5.40) m/uL Hgb (11.4-16.0) gm/dL Hct (34.0-46.0) % Plt Count (150-450) k/uL ABG pCO2 (35-45) mmHg ABG pO2 (83-108) mmHg ABG HCO3 (21-25) mmol/L ABG Total CO2 (19-24) mmol/L ABG O2 Saturation (94-97) % BUN (7-17) mg/dL Creatinine (0.52-1.04) mg/dL Glucose (74-99) mg/dL POC Glucose (mg/dL) 138 H 151 H 131 H (75-99) mg/dL AST (14-36) U/L ALT (9-52) U/L Total Protein (6.3-8.2) g/dL Albumin (3.5-5.0) g/dL 05/12/16 05/13/16 05/13/16 Range/Units 23:13 00:03 01:22 RBC (3.80-5.40) m/uL Hgb (11.4-16.0) gm/dL Hct (34.0-46.0) % Plt Count (150-450) k/uL ABG pCO2 (35-45) mmHg ABG pO2 (83-108) mmHg ABG HCO3 (21-25) mmol/L ABG Total CO2 (19-24) mmol/L ABG O2 Saturation (94-97) % BUN (7-17) mg/dL Creatinine (0.52-1.04) mg/dL Glucose (74-99) mg/dL POC Glucose (mg/dL) 133 H 134 H 123 H (75-99) mg/dL AST (14-36) U/L ALT (9-52) U/L Total Protein (6.3-8.2) g/dL Albumin (3.5-5.0) g/dL 05/13/16 05/13/16 05/13/16 Range/Units 02:12 04:01 05:29 RBC 2.39 L (3.80-5.40) m/uL Hgb 7.3 L (11.4-16.0) gm/dL Hct 23.3 L (34.0-46.0) % Plt Count 100 L (150-450) k/uL ABG pCO2 (35-45) mmHg ABG pO2 (83-108) mmHg ABG HCO3 (21-25) mmol/L ABG Total CO2 (19-24) mmol/L ABG O2 Saturation (94-97) % BUN (7-17) mg/dL Creatinine (0.52-1.04) mg/dL Glucose (74-99) mg/dL POC Glucose (mg/dL) 125 H 115 H (75-99) mg/dL AST (14-36) U/L ALT (9-52) U/L Total Protein (6.3-8.2) g/dL Albumin (3.5-5.0) g/dL 05/13/16 05/13/16 05/13/16 Range/Units 05:29 05:35 07:08 RBC (3.80-5.40) m/uL Hgb (11.4-16.0) gm/dL Hct (34.0-46.0) % Plt Count (150-450) k/uL ABG pCO2 (35-45) mmHg ABG pO2 (83-108) mmHg ABG HCO3 (21-25) mmol/L ABG Total CO2 (19-24) mmol/L ABG O2 Saturation (94-97) % BUN 26 H (7-17) mg/dL Creatinine 1.10 H (0.52-1.04) mg/dL Glucose 110 H (74-99) mg/dL POC Glucose (mg/dL) 118 H 132 H (75-99) mg/dL AST 48 H (14-36) U/L ALT 59 H (9-52) U/L Total Protein 4.9 L (6.3-8.2) g/dL Albumin 3.2 L (3.5-5.0) g/dL 05/13/16 05/13/16 05/13/16 Range/Units 08:03 10:57 11:41 RBC (3.80-5.40) m/uL Hgb (11.4-16.0) gm/dL Hct (34.0-46.0) % Plt Count (150-450) k/uL ABG pCO2 50 H (35-45) mmHg ABG pO2 27 L* (83-108) mmHg ABG HCO3 27 H (21-25) mmol/L ABG Total CO2 28 H (19-24) mmol/L ABG O2 Saturation 47.0 L (94-97) % BUN (7-17) mg/dL Creatinine (0.52-1.04) mg/dL Glucose (74-99) mg/dL POC Glucose (mg/dL) 138 H 120 H (75-99) mg/dL AST (14-36) U/L ALT (9-52) U/L Total Protein (6.3-8.2) g/dL Albumin (3.5-5.0) g/dL 05/13/16 Range/Units 17:26 RBC (3.80-5.40) m/uL Hgb (11.4-16.0) gm/dL Hct (34.0-46.0) % Plt Count (150-450) k/uL ABG pCO2 (35-45) mmHg ABG pO2 (83-108) mmHg ABG HCO3 (21-25) mmol/L ABG Total CO2 (19-24) mmol/L ABG O2 Saturation (94-97) % BUN (7-17) mg/dL Creatinine (0.52-1.04) mg/dL Glucose (74-99) mg/dL POC Glucose (mg/dL) 152 H (75-99) mg/dL AST (14-36) U/L ALT (9-52) U/L Total Protein (6.3-8.2) g/dL Albumin (3.5-5.0) g/dL Assessment and Plan Plan: Patient is stable status post coronary artery bypass surgery creatinine remained stable no arrhythmias are noted. Continue the current medications.
[2016-05-13 21:09] LABS: Glucose,Whole Blood 137 mg/dL (75-99)
[2016-05-13] MEDS: INSULIN NPH 300 UNIT/3 ML VIAL SQ SCH (21:14)
[2016-05-13] MEDS: SENNOSIDES-DOCUSATE SODIUM 1 EACH TAB PO SCH (21:17)
[2016-05-14] MEDS: HYDROcodone/APAP 5-325MG 1 EACH TAB PO PRN ×4 (00:39→21:46)
[2016-05-14] MEDS: HEPARIN SODIUM,PORCINE 5,000 UNIT/ML 1 ML VIAL SQ SCH ×4 (00:39→23:36)
[2016-05-14 04:17] LABS: Glucose,Whole Blood 130 mg/dL (75-99)
[2016-05-14] MEDS: INSULIN LISPRO (humaLOG) 300 UNIT/3 ML VIAL SQ SCH ×6 (04:20→21:43)
[2016-05-14] MEDS: PHENYLEPHRINE 40 MG in SODIUM CHLORIDE 0.9% 250 ML IV SCH (04:20)
[2016-05-14 05:18] LABS: ALT 66 U/L (9-52); AST 48 U/L (14-36); Alkaline Phosphatase 66 U/L (38-126); Anion Gap 7 mmol/L; Blood Urea Nitrogen 23 mg/dL (7-17); Calcium 8.6 mg/dL (8.4-10.2); Carbon Dioxide 29 mmol/L (22-30); Chloride 105 mmol/L (98-107); Glucose 106 mg/dL (74-99); Magnesium 2.1 mg/dL (1.6-2.3); Non-African American GFR(MDRD) >60 (>60 ml/min/1.73 sqM); Potassium 4.7 mmol/L (3.5-5.1); Sodium 141 mmol/L (137-145); Total Bilirubin 0.8 mg/dL (0.2-1.3); Total Protein 5.5 g/dL (6.3-8.2)
[2016-05-14 05:28] LABS: Ionized Calcium 4.8 mg/dL (4.5-5.3)
[2016-05-14 06:01] LABS: Basophils % (A) 0 %; CH 30.5; CHCM 31.4; Eosinophils # (A) 0.1 k/uL (0-0.7); Eosinophils % (A) 2 %; HCT 24.1 % (34.0-46.0); HDW 2.69; HGB 7.5 gm/dL (11.4-16.0); Hypochromasia Slight; Luc % (Auto) 4; Lymphocytes # (A) 1.5 k/uL (1.0-4.8); Lymphocytes % (A) 19 %; MCH 30.4 pg (25.0-35.0); MCHC 31.1 g/dL (31.0-37.0); MCV 97.7 fL (80.0-100.0); Mean Platelet Volume 8.4; Monocytes # (A) 0.4 k/uL (0-1.0); Monocytes % (A) 6 %; Neutrophils # (A) 5.3 k/uL (1.3-7.7); Neutrophils % (A) 69 %; RBC 2.47 m/uL (3.80-5.40); RDW 14.1 % (11.5-15.5); WBC 7.7 k/uL (3.8-10.6); WBC (Perox) 8.08
[2016-05-14] MEDS: IPRATROPIUM-ALBUTEROL 3 ML NEB INHALATION SCH ×4 (07:32→20:39)
[2016-05-14] MEDS: CLOPIDOGREL 75 MG TAB PO SCH (08:05)
[2016-05-14] MEDS: ATORVASTATIN 40 MG TAB PO SCH (08:05)
[2016-05-14] MEDS: METOPROLOL TARTRATE 12.5 MG TAB PO SCH (08:06)
[2016-05-14] MEDS: PANTOPRAZOLE 40 MG TABLET PO SCH (08:06)
[2016-05-14] MEDS: ASPIRIN 81 MG CHEW PO SCH (08:06)
[2016-05-14 08:13] LABS: Glucose,Whole Blood 141 mg/dL (75-99)
[2016-05-14] MEDS: INSULN ASP PRT/INSULIN ASPART 100 UNIT/ML 10 ML VIAL SQ SCH (08:14)
--- NOTE | 2016-05-14 09:05 | XR ---
EXAMINATION TYPE: XR chest 1V portable DATE OF EXAM: 05/14/2016 8:47 AM COMPARISON: 05/13/2016 HISTORY: Postop CABG FINDINGS: There are bilateral pleural effusions with cardiomegaly and bibasilar infiltrate. There is a diffuse interstitial pattern. Postsurgical changes noted. Chest tube removed. Ventura-Kim catheter removed. Less than 5% left apical pneumothorax. IMPRESSION: 1. Bilateral infiltrate and pleural effusion correlate for CHF. 2. Less than 5% left apical pneumothorax post chest tube removal
[2016-05-14] MEDS ORDERED: METOPROLOL TARTRATE 12.5 MG TAB PO STA (10:01)
[2016-05-14] MEDS: SODIUM CHLORIDE 0.9% 1,000 ML IV SCH (10:29)
--- NOTE | 2016-05-14 10:59 | P.PN ---
Subjective Progress note dated down 05/09/2016 This is a 50-year-old female seen yesterday in consultation. She presented to the emergency room for chest pain. She does have a previous history of acute myocardial infarction. Anyway the patient went to the [facility] was found have significant coronary artery disease. The patient is apparently going for open heart surgery tomorrow. She's currently on room air. Her IVs appointment 9 at 75 mL an hour. The patient is getting IV heparin. Patient otherwise is doing well. I saw her lung function. She is a lifelong nonsmoker. He was on her lung function weren't as good as I expected them to be, there more than adequate to support general anesthesia in her anticipated bypass grafting. Progress note dated 05/10/2016 50-year-old female who is going to have open-heart surgery today. She's accident down in the operating room as we speak. Patient is doing relatively well. His been stable here. I was able to evaluate her baseline the surgical spirometry. She is a lifelong nonsmoker. Lung function weren't satisfactory. Certainly see her again after surgery back here in the ICU. At that time he'll be on the ventilator. We'll make sure she gets updrafts in the form of Xopenex and Atrovent every 4 [id number]. Post extubation patient will also be getting incentive spirometry every hour while awake. All all think she'll do relatively well. Progress note dated 05/11/2016 This is a 50-year-old female postop day #1, status post three-vessel bypass grafting. Currently she is on a 50% Venturi mask and was turned on the 4 L nasal cannula. She's getting an IV with LR 20 mL an hour and insulin drip at 3.5 units an hour and Primacor and moderate dose. She is postop day #1 status post three-vessel bypass grafting. No respiratory problems. She was extubated yesterday. Progress note dated 05/12/2016 50-year-old female postop day #2 status post via three-vessel bypass grafting. She's doing well. Currently weaned down to nasal O2. Feeling well. The patient said doing much better. The patient's on LR or lactated Ringer's at 20 mL an hour. She is on Primacor 0.2 mics per kilogram per minute and insulin drip at 2 units an hour. Chest tube is apparently a timeout today. She is postop day #2. Progress note dated 05/14/2016 50-year-old female postop day #4 status post three-vessel bypass grafting. Probably will be transferred out to the floor today. He is just on room air. Getting an IV appointment 9 at 20 mL an hour. Feeling well. Getting about 7 50 mL on her incentive spirometer. Denies any chest pain or chest discomfort. No shortness of breath. Not coughing up any phlegm or blood. No fever no chills. No nausea vomiting or diarrhea. Objective - Vital Signs Vital signs: Vital Signs Temp 98.0 F 05/14/16 09:00 Pulse 87 05/14/16 10:00 Resp 22 05/14/16 10:00 BP 166/87 05/14/16 10:00 Pulse Ox 91 L 05/14/16 10:00 Intake & Output 05/13/16 05/14/16 05/14/16 17:59 06:59 18:59 Intake Total 80 Output Total 250 Balance -170 Weight Intake: Intake, IV Titration 80 Amount Albumin Human 5% 500 ml In Empty Bag 1 bag @ 250 mls/hr IVPB ONCE ONE Rx#: [id number] Insulin Regular 100 unit In Sodium Chloride 0.9% 100 ml @ Per Protocol IV .Q0M [facility] Rx#:[id number] Lactated Ringers 1,000 ml @ 20 mls/hr IV .Q24H [facility] Rx#:[id number] Sodium Chloride 0.9% 1, 80 000 ml @ 20 mls/hr IV . Q24H [facility] Rx#:[id number] Oral Output: Chest Tube Drainage Chest Tube Left Lateral Chest Drainage Left Lower Urine 250 Other: Voiding Method # Voids ABP, PAP, CO, CI - Last Documented Arterial Blood Pressure 83/78 Pulmonary Artery Pressure 32/23 Cardiac Output 3.5 Cardiac Index 1.9 - Exam No acute distress, NG tube and endotracheal tube in place. HEENT examination is grossly unremarkable. Mucous membranes are moist. No oral lesions. Neck supple. Full range of motion. No adenopathy or thyromegaly. Neck veins are flat. Cardiovascular examination reveals regular rhythm rate. S1-S2 normal. No S3- S4 or murmur. Lungs are clear breath sounds are equal. No wheezes or rhonchi. Abdomen is soft bowel sounds are heard. Extremities are intact. Exam dated 05/11/2016 No acute distress, oriented 3. Nasal O2 in place. Neck supple. Full range of motion. No adenopathy. Cardiovascular examination reveals regular rhythm rate. S1-S2 normal. No S3- S4 or murmur. Lungs reveal diminished breath sounds. A few scattered mild rhonchi. No wheezes or crackles. Abdomen soft bowel sounds are heard. Extremities are intact. Exam dated 05/12/2016 No acute distress, oriented 3. HEENT examination is grossly unremarkable. Mixed membranes are moist. No oral lesions. Neck supple. Full range of motion. Cardiovascular examination reveals regular rhythm rate. Lungs reveal a few scattered rhonchi. Abdomen soft. Extremities are intact. Exam dated 05/14/2016 No acute distress, oriented 3 HEENT examination is grossly unremarkable. Mucous membranes are moist. Neck is supple full range of motion. No adenopathy or thyromegaly. Neck veins are flat. Cardiovascular examination reveals regular rhythm rate. S1-S2 normal. Lungs are mostly clear. A few scattered rhonchi. Abdomen soft bowel sounds are heard Extremities are intact. - Labs CBC & Chem 7: 05/14/16 04:26 05/14/16 04:26 Labs: Abnormal Lab Results - Last 24 Hours (Table) 05/13/16 05/13/16 05/13/16 Range/Units 10:57 11:41 17:26 RBC (3.80-5.40) m/uL Hgb (11.4-16.0) gm/dL Hct (34.0-46.0) % Plt Count (150-450) k/uL ABG pCO2 50 H (35-45) mmHg ABG pO2 27 L* (83-108) mmHg ABG HCO3 27 H (21-25) mmol/L ABG Total CO2 28 H (19-24) mmol/L ABG O2 Saturation 47.0 L (94-97) % BUN (7-17) mg/dL Glucose (74-99) mg/dL POC Glucose (mg/dL) 120 H 152 H (75-99) mg/dL AST (14-36) U/L ALT (9-52) U/L Total Protein (6.3-8.2) g/dL 05/13/16 05/14/16 05/14/16 Range/Units 21:08 04:15 04:26 RBC 2.47 L (3.80-5.40) m/uL Hgb 7.5 L (11.4-16.0) gm/dL Hct 24.1 L (34.0-46.0) % Plt Count 126 L (150-450) k/uL ABG pCO2 (35-45) mmHg ABG pO2 (83-108) mmHg ABG HCO3 (21-25) mmol/L ABG Total CO2 (19-24) mmol/L ABG O2 Saturation (94-97) % BUN (7-17) mg/dL Glucose (74-99) mg/dL POC Glucose (mg/dL) 137 H 130 H (75-99) mg/dL AST (14-36) U/L ALT (9-52) U/L Total Protein (6.3-8.2) g/dL 05/14/16 05/14/16 Range/Units 04:26 08:11 RBC (3.80-5.40) m/uL Hgb (11.4-16.0) gm/dL Hct (34.0-46.0) % Plt Count (150-450) k/uL ABG pCO2 (35-45) mmHg ABG pO2 (83-108) mmHg ABG HCO3 (21-25) mmol/L ABG Total CO2 (19-24) mmol/L ABG O2 Saturation (94-97) % BUN 23 H (7-17) mg/dL Glucose 106 H (74-99) mg/dL POC Glucose (mg/dL) 141 H (75-99) mg/dL AST 48 H (14-36) U/L ALT 66 H (9-52) U/L Total Protein 5.5 L (6.3-8.2) g/dL Assessment and Plan (1) NSTEMI (non-ST elevated myocardial infarction) Status: Acute Plan: Plan The patient will see the cardiovascular surgeon. Additional recommendations suggestions forthcoming. The patient should do well with surgery. Lifelong nonsmoker. No history of any lung problems. Doesn't use oxygen at home. Unknown inhalers or puffers or anything like that. No prior history of asthma chronic bronchitis emphysema or any lung problem for that matter. Plan dated 05/09/2016 The patient's doing well. Anticipated surgery tomorrow. Lung function were adequate. We'll continue to follow closely. We'll see her after the surgery tomorrow and hopefully wean him quickly from mechanical ventilator. Plan dated 05/10/2016 The patient will be eventually weaned off the mechanical ventilator. We've added updrafts every 4. Once extubated, the patient will begin incentive spirometry every hour while awake. We'll continue to follow. Prognosis is guarded but generally she should do relatively well. Additional additionally, x -rays will be evaluated on a daily basis. Plan dated 05/11/2016 The patient is doing well. We'll continue to follow. We'll continue to wean the oxygen. We'll recommend updrafts in the incentive spirometer. We'll also recommend deep breathing coughing and clearing of secretions. No additional recommendations are made. We'll continue to follow. Prognosis is guarded but generally good. Next Plan dated 05/12/2016 The patient will continue with deep breathing coughing and clearing of secretions. We'll continue weaning the FiO2. Continue with incentive spirometry. Continue with breathing treatments. We'll continue to follow. Plan dated 05/14/2016 The patient's doing well. Additional recommendations are made. We'll continue to follow. She'll continue on the incentive spirometer and the breathing treatments. Time with Patient: Less than 30
[2016-05-14] MEDS ORDERED: LISINOPRIL 2.5 MG TAB PO SCH (12:00)
[2016-05-14 12:13] LABS: Glucose,Whole Blood 104 mg/dL (75-99)
--- NOTE | 2016-05-14 12:14 | P.PN ---
Progress Note - Text CV Surgery Nursing Principal diagnosis: Triple-vessel coronary artery disease with non-ST elevation myocardial infarction. Overall preserved left ventricular function. Hypertension. Hyperlipidemia. Obesity. Untreated diabetes. POD #4 triple coronary artery bypass grafting using the left internal mammary artery to the mid left anterior descending artery, reverse saphenous vein graft from the aorta to the lateral branching of the first diagonal artery, reverse saphenous vein graft from the aorta to the right coronary artery. Endoscopic harvesting of the left greater saphenous vein. Intraoperative transesophageal echocardiogram and epi-aortic scanning. Intraoperative graft flow measurements using the Patient awake and alert, patient sitting up to bedside chair., No distress noted , no specific complaints. Vital Signs: Afebrile Vital Signs - 24 hr 05/13/16 05/13/16 05/13/16 09:00 10:00 11:00 Temperature Pulse Rate 85 84 88 Respiratory 12 18 20 Rate Blood Pressure 112/45 121/48 144/74 O2 Sat by Pulse 98 97 93 L Oximetry 05/13/16 05/13/16 05/13/16 11:49 12:00 12:05 Temperature Pulse Rate 84 76 82 Respiratory 18 21 Rate Blood Pressure 123/62 O2 Sat by Pulse 100 Oximetry 05/13/16 05/13/16 05/13/16 13:00 14:00 15:00 Temperature Pulse Rate 81 76 80 Respiratory 17 11 L 12 Rate Blood Pressure 113/53 109/66 109/66 O2 Sat by Pulse 96 98 96 Oximetry 05/13/16 05/13/16 05/13/16 16:00 16:15 17:00 Temperature 98.2 F Pulse Rate 82 83 86 Respiratory 18 14 Rate Blood Pressure 114/70 147/73 O2 Sat by Pulse 97 97 Oximetry 05/13/16 05/13/16 05/13/16 18:00 19:00 19:36 Temperature Pulse Rate 84 86 83 Respiratory 15 10 L Rate Blood Pressure 147/73 151/73 O2 Sat by Pulse 98 97 Oximetry 05/13/16 05/13/16 05/13/16 19:47 20:00 21:00 Temperature 98.3 F Pulse Rate 83 90 90 Respiratory 14 5 L Rate Blood Pressure 156/78 186/83 O2 Sat by Pulse 97 99 Oximetry 05/13/16 05/13/16 05/13/16 22:00 23:00 23:01 Temperature Pulse Rate 83 84 79 Respiratory 12 13 19 Rate Blood Pressure 163/73 147/69 147/69 O2 Sat by Pulse 100 100 100 Oximetry 05/14/16 05/14/16 05/14/16 00:00 01:00 03:00 Temperature 98.7 F Pulse Rate 77 76 74 Respiratory 17 15 16 Rate Blood Pressure 133/70 156/83 117/63 O2 Sat by Pulse 100 100 100 Oximetry 05/14/16 05/14/16 05/14/16 04:00 05:00 06:00 Temperature 98.3 F Pulse Rate 78 78 81 Respiratory 15 12 13 Rate Blood Pressure 130/71 165/84 139/71 O2 Sat by Pulse 100 100 99 Oximetry 05/14/16 05/14/16 05/14/16 07:00 07:35 07:50 Temperature Pulse Rate 77 77 79 Respiratory 16 Rate Blood Pressure 134/76 O2 Sat by Pulse 98 Oximetry 05/14/16 05/14/16 08:00 09:00 Temperature 98.0 F Pulse Rate 90 88 Respiratory 16 18 Rate Blood Pressure 115/65 156/102 O2 Sat by Pulse 92 L Oximetry Labs: Short CBC 05/14/16 Range/Units 04:26 WBC 7.7 (3.8-10.6) k/uL Hgb 7.5 L (11.4-16.0) gm/dL Hct 24.1 L (34.0-46.0) % Plt Count 126 L (150-450) k/uL Neutrophils # 5.3 (1.3-7.7) k/uL BMP 05/14/16 04:26 Sodium 141 Potassium 4.7 Chloride 105 Carbon Dioxide 29 BUN 23 H Creatinine 0.90 Glucose 106 H Calcium 8.6 Liver Function 05/14/16 Range/Units 04:26 Total Bilirubin 0.8 (0.2-1.3) mg/dL AST 48 H (14-36) U/L ALT 66 H (9-52) U/L Alkaline Phosphatase 66 (38-126) U/L Albumin 3.5 (3.5-5.0) g/dL IV Fluids: 0.9% normal saline at 20 ml/h. CVP: 14 Lungs: Few scattered crackles to bilateral bases. Essentially clear to bilateral upper lobes. Nonlabored respirations. O2 sat: 92% on room air. I/S: 500 mL, reviewed with the patient importance of using her incentive spirometry every hour while awake. Patient did give a return demonstration on the incentive spirometry but will need followed up encouragement. Heart: S1S2, regular rhythm and rate, negative for murmur, S3 or gallop. Bedside telemetry showing normal sinus rhythm heart rate 89. Sternum stable, chest incision clean with silverlon dressing clean and dry. Heart hugger in place, patient demonstrating proper use. Left leg incisions clean dry and well approximated. No drainage noted. Knee- high ADDIS hose and sequential compression devices in place to bilateral lower extremity Luis. Past edema noted to her bilateral lower extremities. Abdomen: Soft, Positive bowel sounds present in all 4 quadrants. CBGs: 120-152 mg/dL in the last 24 hours. U/O: Adequate, 650 mL output in the last 8 hours, 3050 mL output in the last 24 hours. Active Medications Hydrocodone Bitart/Acetaminophen (Lamont 5-325) 2 each PO Q4HR PRN PRN Reason: Severe Pain Last Admin: 05/14/16 09:39 Dose: 2 each Hydrocodone Bitart/Acetaminophen (Lamont 5-325) 1 each PO Q4HR PRN PRN Reason: Moderate Pain Last Admin: 05/12/16 17:34 Dose: 1 each Albuterol/Ipratropium (Duoneb 0.5 Mg-3 Mg/3 Ml Soln) 3 ml INHALATION RT-Q2H PRN PRN Reason: Shortness Of Breath Or Wheezing Albuterol/Ipratropium (Duoneb 0.5 Mg-3 Mg/3 Ml Soln) 3 ml INHALATION RT-QID [facility] Last Admin: 05/14/16 07:32 Dose: 3 ml Aspirin (Aspirin) 81 mg PO DAILY [facility] Last Admin: 05/14/16 08:06 Dose: 81 mg Atorvastatin Calcium (Lipitor) 40 mg PO DAILY [facility] Last Admin: 05/14/16 08:05 Dose: 40 mg Bisacodyl (Dulcolax) 10 mg RECTAL DAILY PRN PRN Reason: Constipation Clopidogrel Bisulfate (Plavix) 75 mg PO DAILY [facility] Last Admin: 05/14/16 08:05 Dose: 75 mg Heparin Sodium (Porcine) (Heparin) 5,000 unit SQ Q8HR [facility] Last Admin: 05/14/16 08:06 Dose: 5,000 unit Phenylephrine HCl 40 mg/ (Sodium Chloride) 254 mls @ 19.05 mls/hr IV .[id number] [facility]; 50 MCG/MIN PRN Reason: Protocol Last Admin: 05/14/16 04:20 Dose: Not Given Sodium Chloride (Saline 0.9%) 1,000 mls @ 20 mls/hr IV .Q24H [facility] Last Admin: 05/13/16 10:32 Dose: 20 mls/hr Insulin Aspart (Novolog Mix 70-30 Vial) 20 unit SQ [id number] [facility] Last Admin: 05/14/16 08:14 Dose: 20 unit Insulin Human Lispro (Humalog) 5 unit SQ AC-SUPPER [facility] Last Admin: 05/13/16 17:46 Dose: 5 unit Insulin Human Lispro (Humalog) 0 unit SQ [id number] [facility] PRN Reason: Protocol Last Admin: 05/14/16 08:11 Dose: 1 unit Insulin Human NPH (Humulin N) 10 unit SQ HS [facility] Last Admin: 05/13/16 21:14 Dose: 10 unit Magnesium Hydroxide (Milk Of Magnesia) 2,400 mg PO BID PRN PRN Reason: Constipation Metoclopramide HCl (Reglan) 10 mg IVP Q4H PRN PRN Reason: Nausea And Vomiting Metoprolol Tartrate (Lopressor) 12.5 mg PO BID [facility] Last Admin: 05/14/16 08:06 Dose: 12.5 mg Miscellaneous Information (Magnesium Per Protocol) 1 each MISCELLANE DAILY PRN ; Protocol PRN Reason: Per Protocol Miscellaneous Information (Phosphorus Per Protocol) 1 each MISCELLANE DAILY PRN ; Protocol PRN Reason: Per Protocol Miscellaneous Information (Potassium Per Protocol) 1 each MISCELLANE DAILY PRN ; Protocol PRN Reason: Per Protocol Ondansetron HCl (Zofran) 4 mg IVP Q6HR PRN PRN Reason: Nausea And Vomiting Last Admin: 05/11/16 09:43 Dose: 4 mg Pantoprazole Sodium (Protonix) 40 mg PO DAILY [facility] Last Admin: 05/14/16 08:06 Dose: 40 mg Senna/Docusate Sodium (Senokot-S) 2 each PO HS [facility] Last Admin: 05/13/16 21:17 Dose: 2 each Sodium Chloride (Saline Flush) 10 ml IV BID [facility] Last Admin: 05/14/16 09:40 Dose: 10 ml Plan: 1. Continue aspirin, Plavix, and statin. 2. We will increase her metoprolol to 25 mg by mouth twice a day. 3. We will start her on lisinopril 2.5 mg by mouth daily at noon. 4. Increase activity, out of bed to chair. Physical therapy to follow. 5. The patient will be transferred to [address] [place] [address]. 6. Monitor labs, daily chest x-rays. 7. Encourage incentive spirometry use. 8. GI/DVT prophylaxis 9. Wean O2 as tolerated. 10. More recommendations as patient progresses. 11. clinical staff educator consulted due to her preop hemoglobin A1c of 6.6. 12. Discontinue her Cordis. Saline lock her IV.
--- NOTE | 2016-05-14 12:23 | P.PN ---
Subjective This patient's vital signs and laboratory tests were reviewed. She is comfortable she's not in any respiratory distress patient remained hemodynamically stable yesterday denies any chest pain or cough. No arrhythmias are noted. Objective - Vital Signs Vital signs: Vital Signs Temp 98.2 F 05/14/16 12:00 Pulse 90 05/14/16 12:00 Resp 14 05/14/16 12:00 BP 148/84 05/14/16 12:00 Pulse Ox 96 05/14/16 12:00 Intake & Output 05/13/16 05/14/16 05/14/16 17:59 06:59 18:59 Intake Total 100 Output Total 350 Balance -250 Weight Intake: Intake, IV Titration 100 Amount Albumin Human 5% 500 ml In Empty Bag 1 bag @ 250 mls/hr IVPB ONCE ONE Rx#: [id number] Insulin Regular 100 unit In Sodium Chloride 0.9% 100 ml @ Per Protocol IV .Q0M [facility] Rx#:[id number] Lactated Ringers 1,000 ml @ 20 mls/hr IV .Q24H [facility] Rx#:[id number] Sodium Chloride 0.9% 1, 100 000 ml @ 20 mls/hr IV . Q24H [facility] Rx#:[id number] Oral Output: Chest Tube Drainage Chest Tube Left Lateral Chest Drainage Left Lower Urine 350 Other: Voiding Method # Voids ABP, PAP, CO, CI - Last Documented Arterial Blood Pressure 83/78 Pulmonary Artery Pressure 32/23 Cardiac Output 3.5 Cardiac Index 1.9 - Exam Patient is sitting comfortably in the chair without any respiratory distress. Temperature is normal. Vital signs are reviewed and are normal. First and second heart sounds are normal. Lungs reveal a few scattered wheezes. - Labs CBC & Chem 7: 05/14/16 04:26 05/14/16 04:26 Labs: Abnormal Lab Results - Last 24 Hours (Table) 05/13/16 05/13/16 05/13/16 Range/Units 11:41 17:26 21:08 RBC (3.80-5.40) m/uL Hgb (11.4-16.0) gm/dL Hct (34.0-46.0) % Plt Count (150-450) k/uL ABG pCO2 50 H (35-45) mmHg ABG pO2 27 L* (83-108) mmHg ABG HCO3 27 H (21-25) mmol/L ABG Total CO2 28 H (19-24) mmol/L ABG O2 Saturation 47.0 L (94-97) % BUN (7-17) mg/dL Glucose (74-99) mg/dL POC Glucose (mg/dL) 152 H 137 H (75-99) mg/dL AST (14-36) U/L ALT (9-52) U/L Total Protein (6.3-8.2) g/dL 05/14/16 05/14/16 05/14/16 Range/Units 04:15 04:26 04:26 RBC 2.47 L (3.80-5.40) m/uL Hgb 7.5 L (11.4-16.0) gm/dL Hct 24.1 L (34.0-46.0) % Plt Count 126 L (150-450) k/uL ABG pCO2 (35-45) mmHg ABG pO2 (83-108) mmHg ABG HCO3 (21-25) mmol/L ABG Total CO2 (19-24) mmol/L ABG O2 Saturation (94-97) % BUN 23 H (7-17) mg/dL Glucose 106 H (74-99) mg/dL POC Glucose (mg/dL) 130 H (75-99) mg/dL AST 48 H (14-36) U/L ALT 66 H (9-52) U/L Total Protein 5.5 L (6.3-8.2) g/dL 05/14/16 05/14/16 Range/Units 08:11 12:10 RBC (3.80-5.40) m/uL Hgb (11.4-16.0) gm/dL Hct (34.0-46.0) % Plt Count (150-450) k/uL ABG pCO2 (35-45) mmHg ABG pO2 (83-108) mmHg ABG HCO3 (21-25) mmol/L ABG Total CO2 (19-24) mmol/L ABG O2 Saturation (94-97) % BUN (7-17) mg/dL Glucose (74-99) mg/dL POC Glucose (mg/dL) 141 H 104 H (75-99) mg/dL AST (14-36) U/L ALT (9-52) U/L Total Protein (6.3-8.2) g/dL Assessment and Plan Plan: Recent is stable status post coronary artery bypass surgery. Patient's lisinopril and Lopressor is increased to control the blood pressure. Continue the rest of the medications.
--- NOTE | 2016-05-14 15:33 | PN ---
DATE OF SERVICE: 05/14/2016 This is a 50-year-old woman who was admitted with triple-vessel coronary artery disease, also had anemia and increased random blood sugar also. The patient is being closely monitored. No chest pain or palpitation. The patient is on insulin protocol at this time with NPH 70/30 as well as Humalog. The p.o. intake appears to be not satisfactory at this time. No chest pain or palpitation. No fever. On exam, alert and oriented x3. Pulse 79, blood pressure 150/56, respirations 20, temperature 98.2, pulse ox 97% on 2 L. HEENT: Conjunctivae normal. NECK: No jugular venous distension. CARDIOVASCULAR SYSTEM: S1, S2. LUNGS: Breath sounds diminished at the bases, a few scattered rhonchi, no crackles. ABDOMEN: Soft, obese, nontender, no mass palpable, nontender. EXTREMITIES: No edema, no swelling. NERVOUS SYSTEM: No focal deficits. Labs are hemoglobin is 7.5. Accu-Cheks are noted. ASSESSMENT: 1. Triple-vessel coronary artery disease, status post coronary artery bypass grafting. 2. Anemia, stable. 3. Increased random blood sugar, diabetes type 2 with hemoglobin A1c of 6.6, status post insulin drip. 4. Acute ruc-GN-gnqdbit elevation myocardial infarction, present on admission. 5. Atelectasis bilaterally. 6. Hypoalbuminemia. 7. Obesity with a body mass index of 43.8. 8. History of hypertension. 9. Hyperlipidemia. 10. History of cholecystectomy. 11. FULL CODE. RECOMMENDATION: In this 50-year-old woman who presented with multiple complex medical issues, will monitor the patient closely. Continue with the current medications, continue with the symptomatic treatment. Recommend continue with protocol. p.o. intake, watch for hypoglycemia. Will closely follow. Further recommendations to follow. MTDD
[2016-05-14 17:22] LABS: Glucose,Whole Blood 156 mg/dL (75-99)
[2016-05-14 21:14] LABS: Glucose,Whole Blood 96 mg/dL (75-99)
[2016-05-14] MEDS: METOPROLOL TARTRATE 25 MG TAB PO SCH (21:47)
[2016-05-14] MEDS: INSULIN NPH 300 UNIT/3 ML VIAL SQ SCH (21:48)
[2016-05-14] MEDS: SENNOSIDES-DOCUSATE SODIUM 1 EACH TAB PO SCH (21:50)
[2016-05-15 02:11] LABS: Glucose,Whole Blood 103 mg/dL (75-99)
[2016-05-15] MEDS: INSULIN LISPRO (humaLOG) 300 UNIT/3 ML VIAL SQ SCH ×6 (04:46→22:12)
[2016-05-15 06:19] LABS: Glucose,Whole Blood 127 mg/dL (75-99)
[2016-05-15 06:32] LABS: Basophils % (A) 0 %; CH 30.4; CHCM 31.1; Eosinophils # (A) 0.2 k/uL (0-0.7); Eosinophils % (A) 2 %; HCT 24.7 % (34.0-46.0); HDW 2.86; HGB 7.5 gm/dL (11.4-16.0); Hypochromasia Slight; Luc # (Auto) 0.24; Luc % (Auto) 3; Lymphocytes # (A) 1.5 k/uL (1.0-4.8); Lymphocytes % (A) 20 %; MCHC 30.6 g/dL (31.0-37.0); MCV 98.2 fL (80.0-100.0); Monocytes # (A) 0.5 k/uL (0-1.0); Monocytes % (A) 7 %; Neutrophils % (A) 68 %; RBC 2.51 m/uL (3.80-5.40); RDW 14.3 % (11.5-15.5); WBC 7.5 k/uL (3.8-10.6); WBC (Perox) 7.43
[2016-05-15 06:38] LABS: Anion Gap 9 mmol/L; Blood Urea Nitrogen 22 mg/dL (7-17); Calcium 8.5 mg/dL (8.4-10.2); Carbon Dioxide 31 mmol/L (22-30); Chloride 101 mmol/L (98-107); Glucose 123 mg/dL (74-99); Non-African American GFR(MDRD) >60 (>60 ml/min/1.73 sqM); Potassium 4.3 mmol/L (3.5-5.1); Sodium 141 mmol/L (137-145)
[2016-05-15] MEDS: INSULIN NPH 300 UNIT/3 ML VIAL SQ SCH ×2 (07:11→23:43)
[2016-05-15] MEDS: INSULN ASP PRT/INSULIN ASPART 100 UNIT/ML 10 ML VIAL SQ SCH (07:30)
[2016-05-15] MEDS: ASPIRIN 81 MG CHEW PO SCH (08:03)
[2016-05-15] MEDS: CLOPIDOGREL 75 MG TAB PO SCH (08:03)
[2016-05-15] MEDS: METOPROLOL TARTRATE 25 MG TAB PO SCH ×3 (08:03→23:44)
[2016-05-15] MEDS: ATORVASTATIN 40 MG TAB PO SCH (08:03)
[2016-05-15] MEDS: PANTOPRAZOLE 40 MG TABLET PO SCH (08:04)
[2016-05-15] MEDS: HYDROcodone/APAP 5-325MG 1 EACH TAB PO PRN ×3 (08:04→18:20)
[2016-05-15] MEDS: HEPARIN SODIUM,PORCINE 5,000 UNIT/ML 1 ML VIAL SQ SCH ×3 (08:05→23:44)
[2016-05-15] MEDS: IPRATROPIUM-ALBUTEROL 3 ML NEB INHALATION SCH ×4 (08:05→20:26)
--- NOTE | 2016-05-15 09:23 | XR ---
EXAMINATION TYPE: XR chest 2V DATE OF EXAM: 05/15/2016 6:46 AM COMPARISON: 05/14/2016 TECHNIQUE: PA and lateral views submitted. HISTORY: Postop CABG FINDINGS: Right-sided consolidation and pleural effusion with tiny left effusion noted. Cardiomegaly and postsu rgical changes. No pneumothorax. Arthropathy of the shoulders. IMPRESSION: 1. Right lower lobe infiltrate and small effusion. 2. Tiny left effusion
--- NOTE | 2016-05-15 09:35 | P.PN ---
Subjective Principal diagnosis: Triple-vessel coronary artery disease with non-ST elevation myocardial infarction. Overall preserved left ventricular function. Hypertension. Hyperlipidemia. Obesity. Untreated diabetes. POD #5 triple coronary artery bypass grafting using the left internal mammary artery to the mid left anterior descending artery, reverse saphenous vein graft from the aorta to the lateral branching of the first diagonal artery, reverse saphenous vein graft from the aorta to the right coronary artery. Endoscopic harvesting of the left greater saphenous vein. Intraoperative transesophageal echocardiogram and epi-aortic scanning. Intraoperative graft flow measurements using the Medistim machine. Currently sitting up in chair, no apparent distress, states she is sore. Objective - Vital Signs Vital signs: Vital Signs Temp 98.4 F 05/15/16 08:00 Pulse 96 05/15/16 08:16 Resp 18 05/15/16 08:00 BP 159/101 05/15/16 08:00 Pulse Ox 93 L 05/15/16 08:00 Intake & Output 05/14/16 05/15/16 05/15/16 18:59 06:59 18:59 Intake Total 100 300 0 Output Total 502 550 Balance -402 -250 0 Weight 97.3 kg Intake: Intake, IV Titration 100 Amount Sodium Chloride 0.9% 1, 100 000 ml @ 20 mls/hr IV . Q24H [facility] Rx#:[id number] Oral 300 0 Output: Urine 502 550 Other: Voiding Method Toilet # Voids 1 ABP, PAP, CO, CI - Last Documented Arterial Blood Pressure 83/78 Pulmonary Artery Pressure 32/23 Cardiac Output 3.5 Cardiac Index 1.9 - Constitutional General appearance: Present: cooperative, no acute distress - Respiratory Details: Lungs sounds diminished, and crackles right base. Respirations even, nonlabored. Currently on room air. Able to achieve 750 mL on incentive spirometry. Cough slightly more effective. - Cardiovascular Details: S1, S2 present. Regular rate and rhythm, normal sinus rhythm on telemetry. Chest stable. Heart hugger in place, patient demonstrating appropriate use. Trace lower extremity edema present. Teds, SCDs present. - Gastrointestinal Gastrointestinal Comment(s): Abdomen soft, nontender, nondistended. Active bowel sounds 4 quadrants. Tolerating diet. - Genitourinary Genitourinary Comment(s): Patient continues to void clear, yellow urine. - Musculoskeletal Musculoskeletal Comment(s): Ambulating in room without assistance. Musculoskeletal: Present: gait normal, strength equal bilaterally - Psychiatric Psychiatric: Present: A&O x's 3, appropriate affect, intact judgment & insight - Allied health notes Allied health notes reviewed: nursing - Labs CBC & Chem 7: 05/15/16 05:59 05/15/16 05:59 Labs: Abnormal Lab Results - Last 24 Hours (Table) 05/14/16 05/14/16 05/15/16 Range/Units 12:10 17:16 02:05 RBC (3.80-5.40) m/uL Hgb (11.4-16.0) gm/dL Hct (34.0-46.0) % MCHC (31.0-37.0) g/dL Carbon Dioxide (22-30) mmol/L BUN (7-17) mg/dL Glucose (74-99) mg/dL POC Glucose (mg/dL) 104 H 156 H 103 H (75-99) mg/dL 05/15/16 05/15/16 05/15/16 Range/Units 05:59 05:59 06:18 RBC 2.51 L (3.80-5.40) m/uL Hgb 7.5 L (11.4-16.0) gm/dL Hct 24.7 L (34.0-46.0) % MCHC 30.6 L (31.0-37.0) g/dL Carbon Dioxide 31 H (22-30) mmol/L BUN 22 H (7-17) mg/dL Glucose 123 H (74-99) mg/dL POC Glucose (mg/dL) 127 H (75-99) mg/dL - Imaging and Cardiology Chest x-ray: report reviewed, image reviewed Assessment and Plan (1) NSTEMI (non-ST elevated myocardial infarction) Status: Acute (2) Hypertension Status: Acute (3) Hyperlipidemia Status: Acute (4) Diabetes type 2, uncontrolled Status: Acute (5) Obesity, morbid, BMI 40.0-49.9 Status: Acute Plan: 1. Continue aspirin, Plavix, statin. 2. Increase Lopressor to 25 mg by mouth every 8 hours, increase Zestril to 5 mg by mouth daily. 3. Wean O2 as tolerated. 4. Increase activity, ambulate in hallway minimum 4 times daily. Physical therapy to follow to make recommendations for home versus rehabilitation. 5. Will DC epicardial pacemaker wire today 6. Monitor labs 7. Encourage incentive spirometry use. 8. GI/DVT prophylaxis 9. Discharge planning to continue. Anticipate discharge soon Time with Patient: Greater than 30
[2016-05-15] MEDS: LISINOPRIL 5 MG TAB PO SCH (11:15)
--- NOTE | 2016-05-15 11:57 | ECHOF ---
Referral Reason:evaluate EF and call Dr. Kohli MEASUREMENTS -------- HEIGHT: 132.1 cm WEIGHT: 98.0 kg BP: RVIDd: 3.7 cm (< 3.3) IVSd: 1.2 cm (0.6 - 1.1) LVIDd: 2.9 cm (3.9 - 5.3) LVPWd: 1.4 cm (0.6 - 1.1) IVSs: 1.5 cm LVIDs: 2.0 cm LVPWs: 1.2 cm RAP: 5.00 mmHg RVSP: 38.14 mmHg FINDINGS -------- Pt had CABG 05/19 Limited Study to Re-Eval LV Function. Overall left ventricular systolic function is low-normal with, an EF between 50 - 55 %. Inferior Hypokinesis Septal Hypokinesis The right ventricle is moderately enlarged. 1.5MG OF DEFINITY UTLIZED: 2 OR MORE WALL SEGMENTS NOT VISUALIZED. There is mild pulmonary hypertension. The right ventricular systolic pressure, as measured by Doppler, is 38.14mmHg. CONCLUSIONS -------- 1. Pt had CABG 05/19 Limited Study to Re-Eval LV Function. 2. Overall left ventricular systolic function is low-normal with, an EF between 50 - 55 %. 3. Inferior Hypokinesis 4. Septal Hypokinesis 5. The right ventricle is moderately enlarged. 6. 1.5MG OF DEFINITY UTLIZED: 2 OR MORE WALL SEGMENTS NOT VISUALIZED. 7. There is mild pulmonary hypertension. 8. The right ventricular systolic pressure, as measured by Doppler, is 38.14mmHg. [employer]IL WINDER: Kathi Dominguez RDCS
[2016-05-15 11:59] LABS: Glucose,Whole Blood 111 mg/dL (75-99)
[2016-05-15 14:28] VITALS: BMI 43.3
--- NOTE | 2016-05-15 15:05 | P.PN ---
Subjective This is a very pleasant 50-year-old female patient who presented here on 2016 and was found to have non-ST segment elevation myocardial infarction and severe triple-vessel disease. She also has a history of hypertension, hyperlipidemia, obesity and diabetes mellitus, untreated. She had subsequently undergone a coronary artery bypass grafting surgery utilizing the RODGERS to the LAD, SVG to the first diagonal artery and SVG to the RCA. She is postoperative day #5. Clinically the patient is doing well. He is ambulating. No significant respiratory distress. No cough or sputum production. Sternum stable clean and intact. Chest x-ray shows cardiomegaly and small atelectatic changes and small effusion the lung bases bilaterally. No fever. No chills. No nausea. No vomiting. No other significant events overnight. Objective - Vital Signs Vital signs: Vital Signs Temp 98.4 F 05/15/16 08:00 Pulse 84 05/15/16 11:31 Resp 18 05/15/16 11:13 BP 141/77 05/15/16 11:13 Pulse Ox 95 05/15/16 11:13 Intake & Output 05/14/16 05/15/16 05/15/16 18:59 06:59 18:59 Intake Total 100 300 0 Output Total 502 550 Balance -402 -250 0 Weight 97.3 kg 97.3 kg Intake: Intake, IV Titration 100 Amount Sodium Chloride 0.9% 1, 100 000 ml @ 20 mls/hr IV . Q24H [facility] Rx#:[id number] Oral 300 0 Output: Urine 502 550 Other: Voiding Method Toilet # Voids 1 ABP, PAP, CO, CI - Last Documented Arterial Blood Pressure 83/78 Pulmonary Artery Pressure 32/23 Cardiac Output 3.5 Cardiac Index 1.9 - Exam Head exam was generally normal. There was no scleral icterus or corneal arcus. Mucous membranes were moist. Neck was supple and without jugular venous distension, thyromegaly, or carotid bruits. Carotids were easily palpable bilaterally. There was no adenopathy. Lung sounds are diminished in the lung bases bilaterally. Sternum stable clean and intact. There is some limited connective lung bases.Abdominal exam revealed normal bowel sounds. The abdomen was soft, non-tender, and without masses, organomegaly, or appreciable enlargement of the abdominal aorta.Examination of the extremities revealed easily palpable radial, femoral and pedal pulses. There was no cyanosis, clubbing or edema. - Labs CBC & Chem 7: 05/15/16 05:59 05/15/16 05:59 Labs: Abnormal Lab Results - Last 24 Hours (Table) 05/14/16 05/15/16 05/15/16 Range/Units 17:16 02:05 05:59 RBC 2.51 L (3.80-5.40) m/uL Hgb 7.5 L (11.4-16.0) gm/dL Hct 24.7 L (34.0-46.0) % MCHC 30.6 L (31.0-37.0) g/dL Carbon Dioxide (22-30) mmol/L BUN (7-17) mg/dL Glucose (74-99) mg/dL POC Glucose (mg/dL) 156 H 103 H (75-99) mg/dL 05/15/16 05/15/16 05/15/16 Range/Units 05:59 06:18 11:46 RBC (3.80-5.40) m/uL Hgb (11.4-16.0) gm/dL Hct (34.0-46.0) % MCHC (31.0-37.0) g/dL Carbon Dioxide 31 H (22-30) mmol/L BUN 22 H (7-17) mg/dL Glucose 123 H (74-99) mg/dL POC Glucose (mg/dL) 127 H 111 H (75-99) mg/dL Assessment and Plan Plan: Assessment #1 coronary artery bypass surgery , status post carotid bypass surgery the patient's postop day #5 #2 status post non-ST segment elevation myocardial infarction #3 Hypertension. #4 Hyperlipidemia. #5 Diabetes mellitus. #6 postoperative anemia, hemoglobin stable at 7.5 #7 postsurgical pleural effusion stable VITOR Ambulate. Use incentive spirometer. Please level of activity as tolerated. Discharge in the next 24-48 hours per cardiothoracic surgery.
[2016-05-15 17:09] LABS: Glucose,Whole Blood 119 mg/dL (75-99)
[2016-05-15 21:09] LABS: Glucose,Whole Blood 122 mg/dL (75-99)
--- NOTE | 2016-05-15 21:55 | PN ---
DATE OF SERVICE: 05/15/2016 This 50-year-old woman who was admitted with triple-vessel coronary artery disease had CABG. Patient also had uncontrolled diabetes mellitus, type 2; however, currently patient is on 3-shot protocol. No chest pain. No palpitation. No fever. On exam, alert and oriented x3. Pulse is 96, blood pressure 141/77, respiration 18, temperature normal, pulse ox 95% on room air. HEENT: Conjunctivae normal. NECK: No jugular venous distention. CARDIOVASCULAR SYSTEM: S1, S2 muffled. RESPIRATORY SYSTEM: Breath sounds diminished at the bases. A few scattered rhonchi. ABDOMEN: Soft, non-tender. LEGS: No edema. No swelling. NERVOUS SYSTEM: No focal deficit. Labs at this time show WBC 7.5, hemoglobin 7.5. Accu-Cheks noted. ASSESSMENT: 1. Triple-vessel coronary artery disease, status post coronary artery bypass grafting. 2. Anemia, stable. 3. Increased random blood sugar with diabetes mellitus, type 2, with hemoglobin A1c of 6.6, status post insulin drip. 4. Acute bzp-QW-dprwwfa-elevation myocardial infarction, present on admission. 5. Atelectasis bilaterally. 6. Hypoalbuminemia. 7. Obesity with body mass index of 43.8. 8. History of hypertension. 9. Hyperlipidemia. 10. History of cholecystectomy. 11. FULL CODE. RECOMMENDATIONS AND DISCUSSION: I recommend to continue with the current medications, continue with the monitoring, symptomatic treatment. Otherwise, at this time I would recommend continuing with the insulin regimen. Monitor for hypoglycemia. Please insure that the patient is taking adequate food. I discussed with the patient, discussed with staff. Continue incentive spirometry. Will closely follow with Cardiothoracic Surgery and multiple other consultants. Further recommendations to follow. Increase ambulation.
--- NOTE | 2016-05-15 22:25 | PN ---
Vani Moscoso is status post coronary artery bypass surgery. Patient is doing fairly well. She has been ambulating in the hallway. No respiratory distress is noted. Heart rate is 84 per minute. Patient is afebrile. Blood pressure is 141/77 mmHg. HEART: S1 and S2 normal. Lung examination reveals a few scattered rhonchi. We will continue the current medications.
[2016-05-15] MEDS: SENNOSIDES-DOCUSATE SODIUM 1 EACH TAB PO SCH (23:48)
[2016-05-16 01:56] LABS: Glucose,Whole Blood 103 mg/dL (75-99)
[2016-05-16] MEDS: INSULIN LISPRO (humaLOG) 300 UNIT/3 ML VIAL SQ SCH ×6 (02:45→21:55)
[2016-05-16 06:30] LABS: Glucose,Whole Blood 165 mg/dL (75-99)
[2016-05-16 06:51] LABS: CH 30.2; CHCM 30.8; HDW 2.92; HGB 8.4 gm/dL (11.4-16.0); Hypochromasia Slight; MCH 30.7 pg (25.0-35.0); MCHC 31.1 g/dL (31.0-37.0); MCV 98.8 fL (80.0-100.0); Mean Platelet Volume 7.9; RBC 2.74 m/uL (3.80-5.40); RDW 14.3 % (11.5-15.5); WBC (Perox) 9.03
[2016-05-16 06:55] LABS: ALT 59 U/L (9-52); AST 43 U/L (14-36); Alkaline Phosphatase 98 U/L (38-126); Anion Gap 13 mmol/L; Blood Urea Nitrogen 21 mg/dL (7-17); Calcium 8.7 mg/dL (8.4-10.2); Carbon Dioxide 31 mmol/L (22-30); Chloride 99 mmol/L (98-107); Glucose 142 mg/dL (74-99); Non-African American GFR(MDRD) >60 (>60 ml/min/1.73 sqM); Potassium 4.3 mmol/L (3.5-5.1); Sodium 143 mmol/L (137-145); Total Protein 5.9 g/dL (6.3-8.2)
[2016-05-16] MEDS: INSULN ASP PRT/INSULIN ASPART 100 UNIT/ML 10 ML VIAL SQ SCH (07:33)
[2016-05-16 08:05] LABS: Add Differential Manual Differential; Manual Review Performed
[2016-05-16] MEDS: HEPARIN SODIUM,PORCINE 5,000 UNIT/ML 1 ML VIAL SQ SCH ×3 (08:05→23:47)
[2016-05-16] MEDS: ATORVASTATIN 40 MG TAB PO SCH (08:06)
[2016-05-16] MEDS: ASPIRIN 81 MG CHEW PO SCH (08:06)
[2016-05-16] MEDS: METOPROLOL TARTRATE 25 MG TAB PO SCH (08:06)
[2016-05-16] MEDS: CLOPIDOGREL 75 MG TAB PO SCH (08:07)
[2016-05-16] MEDS: PANTOPRAZOLE 40 MG TABLET PO SCH (08:07)
[2016-05-16] MEDS: HYDROcodone/APAP 5-325MG 1 EACH TAB PO PRN ×2 (08:09→22:06)
[2016-05-16 08:10] LABS: Metamyelocytes % 1.5 %; Myelocytes % 1.5 %; Nucleated Red Blood Cells 10 /100 WBC (0-0); Total Cells Counted 200
[2016-05-16 08:11] LABS: Polychromasia Present; WBC 8.2 k/uL (3.8-10.6)
[2016-05-16] MEDS: IPRATROPIUM-ALBUTEROL 3 ML NEB INHALATION SCH ×4 (08:48→21:04)
[2016-05-16] MEDS ORDERED: METOPROLOL TARTRATE 25 MG TAB PO STA (09:02)
--- NOTE | 2016-05-16 11:37 | P.PN ---
<Tika Romero - Last Filed: 05/16/16 11:37> Subjective Principal diagnosis: Triple-vessel coronary artery disease with non-ST elevation myocardial infarction. Overall preserved left ventricular function. Hypertension. Hyperlipidemia. Obesity. Untreated diabetes. POD #6 triple coronary artery bypass grafting using the left internal mammary artery to the mid left anterior descending artery, reverse saphenous vein graft from the aorta to the lateral branching of the first diagonal artery, reverse saphenous vein graft from the aorta to the right coronary artery. Endoscopic harvesting of the left greater saphenous vein. Intraoperative transesophageal echocardiogram and epi-aortic scanning. Intraoperative graft flow measurements using the Medistim machine. Currently sitting up in chair, no apparent distress, states she is sore. Objective - Vital Signs Vital signs: Vital Signs Temp 98.5 F 05/16/16 07:00 Pulse 84 05/16/16 07:00 Resp 18 05/16/16 07:00 BP 154/90 05/16/16 07:00 Pulse Ox 99 05/16/16 07:00 Intake & Output 05/15/16 05/16/16 05/16/16 18:59 06:59 18:59 Intake Total 240 Output Total 200 1 Balance 40 -1 Weight 97.3 kg 96.2 kg Intake: Oral 240 Output: Urine 200 Urine/Stool Mix 1 Other: Voiding Method Toilet # Voids 1 1 ABP, PAP, CO, CI - Last Documented Arterial Blood Pressure 83/78 Pulmonary Artery Pressure 32/23 Cardiac Output 3.5 Cardiac Index 1.9 - Constitutional General appearance: Present: cooperative, no acute distress - Respiratory Details: Lungs sounds diminished bilaterally. Respirations even, nonlabored. Currently on 2 L nasal cannula, however patient doesn't need oxygen, requests oxygen to make herself feel better. Able to achieve 750 mL on her incentive spirometry. Coughing still weak but improving. - Cardiovascular Details: S1, S2 present. Regular rate and rhythm, normal sinus rhythm on telemetry. No events noted in the last 24 hours on telemetry. Chest stable. Heart hugger in place with patient demonstrating appropriate use. Trace bilateral lower extremity edema still present, left greater than right. Teds, SCDs present. - Gastrointestinal Gastrointestinal Comment(s): Abdomen soft, nontender, nondistended. Active bowel sounds 4 quadrants. Tolerating diet. - Genitourinary Genitourinary Comment(s): Continues to void clear, yellow urine. - Musculoskeletal Musculoskeletal: Present: gait normal, strength equal bilaterally - Psychiatric Psychiatric: Present: A&O x's 3, appropriate affect, intact judgment & insight - Allied health notes Allied health notes reviewed: case management - Labs CBC & Chem 7: 05/16/16 06:04 05/16/16 06:04 Labs: Abnormal Lab Results - Last 24 Hours (Table) 05/15/16 05/15/16 05/15/16 Range/Units 11:46 16:57 21:07 RBC (3.80-5.40) m/uL Hgb (11.4-16.0) gm/dL Hct (34.0-46.0) % Carbon Dioxide (22-30) mmol/L BUN (7-17) mg/dL Glucose (74-99) mg/dL POC Glucose (mg/dL) 111 H 119 H 122 H (75-99) mg/dL AST (14-36) U/L ALT (9-52) U/L Total Protein (6.3-8.2) g/dL 05/16/16 05/16/16 05/16/16 Range/Units 01:53 06:04 06:04 RBC 2.74 L (3.80-5.40) m/uL Hgb 8.4 L (11.4-16.0) gm/dL Hct 27.0 L (34.0-46.0) % Carbon Dioxide 31 H (22-30) mmol/L BUN 21 H (7-17) mg/dL Glucose 142 H (74-99) mg/dL POC Glucose (mg/dL) 103 H (75-99) mg/dL AST 43 H (14-36) U/L ALT 59 H (9-52) U/L Total Protein 5.9 L (6.3-8.2) g/dL 05/16/16 Range/Units 06:28 RBC (3.80-5.40) m/uL Hgb (11.4-16.0) gm/dL Hct (34.0-46.0) % Carbon Dioxide (22-30) mmol/L BUN (7-17) mg/dL Glucose (74-99) mg/dL POC Glucose (mg/dL) 165 H (75-99) mg/dL AST (14-36) U/L ALT (9-52) U/L Total Protein (6.3-8.2) g/dL Assessment and Plan (1) NSTEMI (non-ST elevated myocardial infarction) Status: Acute (2) Hypertension Status: Acute (3) Hyperlipidemia Status: Acute (4) Diabetes type 2, uncontrolled Status: Acute (5) Obesity, morbid, BMI 40.0-49.9 Status: Acute Plan: 1. Continue aspirin, Plavix, statin, EDMUNDO inhibitor. 2. Increase Lopressor to 50 mg by mouth BID. 3. Wean O2 as tolerated. Encouraged patient to avoid oxygen use when not necessary. Discussed with patient and primary RN 4. Increase activity, ambulate in hallway minimum 4 times daily. Physical therapy to follow to make recommendations for home versus rehabilitation. 5. Will need diabetic education, hemoglobin A1c 6.6. Management per primary service. 6. Monitor labs 7. Encourage incentive spirometry use. 8. GI/DVT prophylaxis 9. Discharge planning to continue. Anticipate discharge soon Time with Patient: Greater than 30 <Giovani Mckay - Last Filed: 05/16/16 12:50> Objective - Vital Signs Vital signs: Vital Signs Temp 97.7 F 05/16/16 12:06 Pulse 88 05/16/16 12:26 Resp 18 05/16/16 12:06 BP 117/49 05/16/16 12:06 Pulse Ox 92 L 05/16/16 12:06 Intake & Output 05/15/16 05/16/16 05/16/16 18:59 06:59 18:59 Intake Total 240 240 Output Total 200 1 200 Balance 40 -1 40 Weight 97.3 kg 96.2 kg Intake: Oral 240 240 Output: Urine 200 200 Urine/Stool Mix 1 Other: Voiding Method Toilet Toilet # Voids 1 1 1 # Bowel Movements 1 ABP, PAP, CO, CI - Last Documented Arterial Blood Pressure 83/78 Pulmonary Artery Pressure 32/23 Cardiac Output 3.5 Cardiac Index 1.9 - Labs CBC & Chem 7: 05/16/16 06:04 05/16/16 06:04 Labs: Abnormal Lab Results - Last 24 Hours (Table) 05/15/16 05/15/16 05/16/16 Range/Units 16:57 21:07 01:53 RBC (3.80-5.40) m/uL Hgb (11.4-16.0) gm/dL Hct (34.0-46.0) % Nucleated RBCs (0-0) /100 WBC Carbon Dioxide (22-30) mmol/L BUN (7-17) mg/dL Glucose (74-99) mg/dL POC Glucose (mg/dL) 119 H 122 H 103 H (75-99) mg/dL AST (14-36) U/L ALT (9-52) U/L Total Protein (6.3-8.2) g/dL 05/16/16 05/16/16 05/16/16 Range/Units 06:04 06:04 06:28 RBC 2.74 L (3.80-5.40) m/uL Hgb 8.4 L (11.4-16.0) gm/dL Hct 27.0 L (34.0-46.0) % Nucleated RBCs 10 H (0-0) /100 WBC Carbon Dioxide 31 H (22-30) mmol/L BUN 21 H (7-17) mg/dL Glucose 142 H (74-99) mg/dL POC Glucose (mg/dL) 165 H (75-99) mg/dL AST 43 H (14-36) U/L ALT 59 H (9-52) U/L Total Protein 5.9 L (6.3-8.2) g/dL Assessment and Plan Plan: The patient was seen and examined. I agree with the above assessment and plan. Overall she is doing well. She has been ambulating without difficulty on room air. We have been working to control her blood pressure. Her Lopressor was increased this morning. Her wounds appear to be clean dry and intact. Her chest x-ray from yesterday reveals small pleural effusions. She'll receive a dose of Lasix this afternoon. I anticipate discharge home within the next 24 hours.
[2016-05-16 11:55] LABS: Glucose,Whole Blood 98 mg/dL (75-99)
[2016-05-16] MEDS ORDERED: FUROSEMIDE 10 MG/ML 2 ML VIAL IV ONE (12:47)
--- NOTE | 2016-05-16 12:52 | P.PN ---
Subjective Date of service 05/16/2016. Progress note being dictated for Dr. Latif Interval history: This a 50-year-old female admitted with non-ST elevation [place], status post cardiac catheterization with major triple vessel disease, S/P CABG and multiple other medical issues. Incentive spirometer up to 800. Telemetry sinus rhythm. Blood sugars controlled, ranging from 90s to 160s. Objective - Vital Signs Vital signs: Vital Signs Temp 97.7 F 05/16/16 12:06 Pulse 88 05/16/16 12:26 Resp 18 05/16/16 12:06 BP 117/49 05/16/16 12:06 Pulse Ox 92 L 05/16/16 12:06 Intake & Output 05/15/16 05/16/16 05/16/16 18:59 06:59 18:59 Intake Total 240 240 Output Total 200 1 200 Balance 40 -1 40 Weight 97.3 kg 96.2 kg Intake: Oral 240 240 Output: Urine 200 200 Urine/Stool Mix 1 Other: Voiding Method Toilet Toilet # Voids 1 1 1 # Bowel Movements 1 ABP, PAP, CO, CI - Last Documented Arterial Blood Pressure 83/78 Pulmonary Artery Pressure 32/23 Cardiac Output 3.5 Cardiac Index 1.9 - Exam PHYSICAL EXAM: VITAL SIGNS: [As above] GENERAL: [Sitting up in chair, no acute distress] HEENT: [Pupils equal conjunctiva normal.] NECK: [Supple, no JVD] RESPIRATORY EFFORT:[Normal] LUNGS: Essentailly clear with occasional scattered rhonchi, no wheezes, no crackles.] CARDIOVASCULAR[regular S1 and S2, trace edema] GI: [Abdomen soft, nontender, positive bowel sounds.] PSYCH: [Alert and oriented -3, mood and affect normal.] NEURO: No focal deficits - Labs CBC & Chem 7: 05/16/16 06:04 05/16/16 06:04 Labs: Abnormal Lab Results - Last 24 Hours (Table) 05/15/16 05/15/16 05/16/16 Range/Units 16:57 21:07 01:53 RBC (3.80-5.40) m/uL Hgb (11.4-16.0) gm/dL Hct (34.0-46.0) % Nucleated RBCs (0-0) /100 WBC Carbon Dioxide (22-30) mmol/L BUN (7-17) mg/dL Glucose (74-99) mg/dL POC Glucose (mg/dL) 119 H 122 H 103 H (75-99) mg/dL AST (14-36) U/L ALT (9-52) U/L Total Protein (6.3-8.2) g/dL 05/16/16 05/16/16 05/16/16 Range/Units 06:04 06:04 06:28 RBC 2.74 L (3.80-5.40) m/uL Hgb 8.4 L (11.4-16.0) gm/dL Hct 27.0 L (34.0-46.0) % Nucleated RBCs 10 H (0-0) /100 WBC Carbon Dioxide 31 H (22-30) mmol/L BUN 21 H (7-17) mg/dL Glucose 142 H (74-99) mg/dL POC Glucose (mg/dL) 165 H (75-99) mg/dL AST 43 H (14-36) U/L ALT 59 H (9-52) U/L Total Protein 5.9 L (6.3-8.2) g/dL Assessment and Plan Plan: 1. [acute non-STEMI, status post cardiac cath with severe triple vessel disease, S/P CABG]. 2. [accelerated hypertension, controlled]. 3. Atlelectasis, bilaterally 4. Lifelong, ongoing nicotine abuse 5. [Hyperlipidemia]. 6. Obesity, BMI 42.8 7. DM II, HGBA1C 6.6 8. acute blood loss anemia, post-operative,stable 9. Hypoalbuminemia Plan: Continue current medication regime, aspirin, beta kun, statin, nitro and heparin drips, monitoring and symptomatic treatment. Aggressive pulmonary toileting. Increase ambulation in hallway as tolerated. Smoking cessation readdressed. Close monitoring of accu cheks,diet intake fair at times, inconsistent. Monitor for hyoglycemia. Casemanagement to arrange for glucometer , diabetic supplies, OP DM education. Further recommendations to follow. The impression and plan of care has been dictated as directed. : I performed a H&P examination of this patient and discussed the same with the dictator. I agree with the dictator's note. Any additional findings/opinions/ etc. will be noted.
--- NOTE | 2016-05-16 14:29 | P.PN ---
Subjective Principal diagnosis: S/P coronary artery bypass grafting surgery Is a pleasant 50-year-old female who presented to the hospital early May and was found to have a non-ST elevation myocardial infarction with severe triple-vessel disease. She has a history of hypertension, hyperlipidemia , obesity, diabetes. Patient underwent coronary artery bypass grafting surgery. She was seen and examined this morning, denies any shortness of breath or chest discomfort. She has been up ambulating in the hallway without any difficulty. Chest x-ray we'll mild atelectasis with small effusion. Blood pressure 118/48, heart rate in the 70s, hemoglobin today 8.4 potassium 4.3. Itching 750 on the incentive spirometry. Objective - Vital Signs Vital signs: Vital Signs Temp 97.7 F 05/16/16 12:06 Pulse 88 05/16/16 12:26 Resp 18 05/16/16 12:06 BP 117/49 05/16/16 12:06 Pulse Ox 92 L 05/16/16 12:06 Intake & Output 05/15/16 05/16/16 05/16/16 18:59 06:59 18:59 Intake Total 240 480 Output Total 200 1 200 Balance 40 -1 280 Weight 97.3 kg 96.2 kg Intake: Oral 240 480 Output: Urine 200 200 Urine/Stool Mix 1 Other: Voiding Method Toilet Toilet # Voids 1 1 1 # Bowel Movements 1 ABP, PAP, CO, CI - Last Documented Arterial Blood Pressure 83/78 Pulmonary Artery Pressure 32/23 Cardiac Output 3.5 Cardiac Index 1.9 - Exam PHYSICAL EXAMINATION: HEENT: Head is atraumatic, normocephalic. Pupils equal, round. Neck is supple. There is no elevated jugular venous pressure. HEART EXAMINATION: Heart S1, S2 normal. No murmur or gallop heard. CHEST EXAMINATION: Lungs clear with diminished air entry to bilateral bases. ABDOMEN: Soft, nontender. Bowel sounds are heard. No organomegaly noted. EXTREMITIES: 2+ peripheral pulses with trace evidence of peripheral edema and no calf tenderness noted. NEUROLOGIC patient is awake, alert and oriented -3. . - Labs CBC & Chem 7: 05/16/16 06:04 05/16/16 06:04 Labs: Abnormal Lab Results - Last 24 Hours (Table) 05/15/16 05/15/16 05/16/16 Range/Units 16:57 21:07 01:53 RBC (3.80-5.40) m/uL Hgb (11.4-16.0) gm/dL Hct (34.0-46.0) % Nucleated RBCs (0-0) /100 WBC Carbon Dioxide (22-30) mmol/L BUN (7-17) mg/dL Glucose (74-99) mg/dL POC Glucose (mg/dL) 119 H 122 H 103 H (75-99) mg/dL AST (14-36) U/L ALT (9-52) U/L Total Protein (6.3-8.2) g/dL 05/16/16 05/16/16 05/16/16 Range/Units 06:04 06:04 06:28 RBC 2.74 L (3.80-5.40) m/uL Hgb 8.4 L (11.4-16.0) gm/dL Hct 27.0 L (34.0-46.0) % Nucleated RBCs 10 H (0-0) /100 WBC Carbon Dioxide 31 H (22-30) mmol/L BUN 21 H (7-17) mg/dL Glucose 142 H (74-99) mg/dL POC Glucose (mg/dL) 165 H (75-99) mg/dL AST 43 H (14-36) U/L ALT 59 H (9-52) U/L Total Protein 5.9 L (6.3-8.2) g/dL Assessment and Plan Plan: Assessment and plan #1 non-Q-wave myocardial infarction, status post coronary bypass grafting surgery. #2 accelerated hypertension #3 hyperlipidemia, untreated #4 history of hypertension, untreated #5 strong family history of premature coronary artery disease Plan Continue patient on her current medications. She's been instructed regarding the importance of use of her incentive spirometry. DNP note has been reviewed, I agree with a documented findings and plan of care. Patient was seen and examined.
--- NOTE | 2016-05-16 15:29 | P.PN ---
Subjective This is a very pleasant 50-year-old female patient who presented here on 2016 and was found to have non-ST segment elevation myocardial infarction and severe triple-vessel disease. She also has a history of hypertension, hyperlipidemia, obesity and diabetes mellitus, untreated. She had subsequently undergone a coronary artery bypass grafting surgery utilizing the RODGERS to the LAD, SVG to the first diagonal artery and SVG to the RCA. She is postoperative day #6. She is seen again today in follow-up on the selective care unit. She is currently sitting up in the chair at the bedside. She is awake and alert in no acute distress. Her pain is well managed. She does continue to require increased encouragement regarding the incentive spirometer and cough and deep breathing exercises. She is only pulling about 750 mL's. Her chest x-ray does show evidence of small bilateral pleural effusions with small infiltrate of the right lower lobe. She is maintaining good O2 saturations in the 90s on room air. He has been hemodynamically stable. She is anxious to go home. Objective - Vital Signs Vital signs: Vital Signs Temp 97.7 F 05/16/16 12:06 Pulse 88 05/16/16 12:26 Resp 18 05/16/16 12:06 BP 117/49 05/16/16 12:06 Pulse Ox 92 L 05/16/16 12:06 Intake & Output 05/15/16 05/16/16 05/16/16 18:59 06:59 18:59 Intake Total 240 480 Output Total 200 1 200 Balance 40 -1 280 Weight 97.3 kg 96.2 kg Intake: Oral 240 480 Output: Urine 200 200 Urine/Stool Mix 1 Other: Voiding Method Toilet Toilet # Voids 1 1 1 # Bowel Movements 1 ABP, PAP, CO, CI - Last Documented Arterial Blood Pressure 83/78 Pulmonary Artery Pressure 32/23 Cardiac Output 3.5 Cardiac Index 1.9 - Exam GENERAL EXAM: Alert, comfortable in no apparent distress. HEAD: Normocephalic. EYES: Normal reaction of pupils, equal size. NOSE: Clear with pink turbinates. THROAT: No erythema or exudates. NECK: No masses, no JVD. CHEST: No chest wall deformity. LUNGS: Equal air entry with crackles in the posterior bases. CVS: S1 and S2 normal with no audible murmurs, regular rhythm. ABDOMEN: No hepatosplenomegaly, normal bowel sounds, no guarding or rigidity. SPINE: No scoliosis or deformity SKIN: No rashes CENTRAL NERVOUS SYSTEM: No focal deficits, tone is normal in all 4 extremities. Extremities: There is trace peripheral edema. No clubbing, no cyanosis. Peripheral pulses are intact. - Labs CBC & Chem 7: 05/16/16 06:04 05/16/16 06:04 Labs: Abnormal Lab Results - Last 24 Hours (Table) 05/15/16 05/15/16 05/16/16 Range/Units 16:57 21:07 01:53 RBC (3.80-5.40) m/uL Hgb (11.4-16.0) gm/dL Hct (34.0-46.0) % Nucleated RBCs (0-0) /100 WBC Carbon Dioxide (22-30) mmol/L BUN (7-17) mg/dL Glucose (74-99) mg/dL POC Glucose (mg/dL) 119 H 122 H 103 H (75-99) mg/dL AST (14-36) U/L ALT (9-52) U/L Total Protein (6.3-8.2) g/dL 05/16/16 05/16/16 05/16/16 Range/Units 06:04 06:04 06:28 RBC 2.74 L (3.80-5.40) m/uL Hgb 8.4 L (11.4-16.0) gm/dL Hct 27.0 L (34.0-46.0) % Nucleated RBCs 10 H (0-0) /100 WBC Carbon Dioxide 31 H (22-30) mmol/L BUN 21 H (7-17) mg/dL Glucose 142 H (74-99) mg/dL POC Glucose (mg/dL) 165 H (75-99) mg/dL AST 43 H (14-36) U/L ALT 59 H (9-52) U/L Total Protein 5.9 L (6.3-8.2) g/dL Assessment and Plan Plan: Impression: #1 Non-ST segment elevation myocardial infarction. #2 Coronary artery disease status post coronary artery bypass grafting 3. Postoperative day #6. #3 Hypertension. #4 Hyperlipidemia. #5 Diabetes mellitus. Plan: The patient was seen and evaluated by Dr. Paredes. Her chest x-ray and labs were reviewed. She is again encouraged regarding the increased use of the incentive spirometer and cough and deep breathing exercises. Continue her current medications. We'll increase her activity as tolerated. We'll continue to follow.
[2016-05-16] MEDS: LISINOPRIL 5 MG TAB PO SCH (15:36)
[2016-05-16 16:48] LABS: Glucose,Whole Blood 120 mg/dL (75-99)
--- NOTE | 2016-05-16 20:14 | PN ---
DATE OF SERVICE: 05/16/2016 This 50-year-old woman who was admitted with acute [id number]-elevation myocardial infarction underwent CAD, CABG. Seen and evaluated the patient along with the nurse practitioner. Please refer to the nurse practitioner's notes and impressions documented as a scribe for further information. Monitor the blood sugars closely. Continue the current dose of insulin. The patient may be discharged home on Lantus with scale. Further recommendations to follow.
[2016-05-16 21:08] LABS: Glucose,Whole Blood 117 mg/dL (75-99)
[2016-05-16] MEDS: INSULIN NPH 300 UNIT/3 ML VIAL SQ SCH (21:56)
[2016-05-16] MEDS: METOPROLOL TARTRATE 50 MG TAB PO SCH (21:57)
[2016-05-16] MEDS: SENNOSIDES-DOCUSATE SODIUM 1 EACH TAB PO SCH (22:00)
[2016-05-17 01:59] LABS: Glucose,Whole Blood 166 mg/dL (75-99)
[2016-05-17] MEDS: INSULIN LISPRO (humaLOG) 300 UNIT/3 ML VIAL SQ SCH ×3 (02:22→16:37)
[2016-05-17 05:52] LABS: Glucose,Whole Blood 92 mg/dL (75-99)
[2016-05-17] MEDS: HYDROcodone/APAP 5-325MG 1 EACH TAB PO PRN (06:57)
[2016-05-17 06:58] LABS: ALT 51 U/L (9-52); AST 42 U/L (14-36); Alkaline Phosphatase 95 U/L (38-126); Anion Gap 11 mmol/L; Blood Urea Nitrogen 22 mg/dL (7-17); Calcium 8.6 mg/dL (8.4-10.2); Carbon Dioxide 32 mmol/L (22-30); Chloride 99 mmol/L (98-107); Glucose 84 mg/dL (74-99); Non-African American GFR(MDRD) >60 (>60 ml/min/1.73 sqM); Potassium 3.8 mmol/L (3.5-5.1); Sodium 142 mmol/L (137-145); Total Bilirubin 0.9 mg/dL (0.2-1.3); Total Protein 5.7 g/dL (6.3-8.2)
[2016-05-17 07:00] LABS: CH 30.6; CHCM 31.4; HCT 25.3 % (34.0-46.0); HDW 3.21; HGB 7.9 gm/dL (11.4-16.0); Hypochromasia Slight; MCH 30.9 pg (25.0-35.0); MCHC 31.4 g/dL (31.0-37.0); MCV 98.5 fL (80.0-100.0); Macrocytosis Slight; Mean Platelet Volume 8.6; RBC 2.57 m/uL (3.80-5.40); RDW 15.6 % (11.5-15.5); WBC (Perox) 7.82
[2016-05-17] MEDS: INSULN ASP PRT/INSULIN ASPART 100 UNIT/ML 10 ML VIAL SQ SCH (07:13)
[2016-05-17] MEDS: ASPIRIN 81 MG CHEW PO SCH (08:05)
[2016-05-17] MEDS: HEPARIN SODIUM,PORCINE 5,000 UNIT/ML 1 ML VIAL SQ SCH (08:05)
[2016-05-17] MEDS: CLOPIDOGREL 75 MG TAB PO SCH (08:06)
[2016-05-17] MEDS: ATORVASTATIN 40 MG TAB PO SCH (08:06)
[2016-05-17] MEDS: METOPROLOL TARTRATE 50 MG TAB PO SCH (08:07)
[2016-05-17] MEDS: PANTOPRAZOLE 40 MG TABLET PO SCH (08:07)
[2016-05-17] MEDS: IPRATROPIUM-ALBUTEROL 3 ML NEB INHALATION SCH ×3 (08:27→17:08)
[2016-05-17 08:50] LABS: Add Differential Manual Differential
[2016-05-17 08:55] LABS: Manual Review Performed; Myelocytes % 1.5 %; Nucleated Red Blood Cells 12 /100 WBC (0-0); Total Cells Counted 200; WBC 7.3 k/uL (3.8-10.6)
[2016-05-17 08:56] LABS: Polychromasia Present; Target Cells Present
--- NOTE | 2016-05-17 10:22 | P.ARTDOP ---
Arterial Doppler LOWER EXTREMITY ARTERIAL DOPPLER: DATE OF SERVICE: 05/09/2016 Reason for study: Pre-CABG. Doppler waveforms: Multiphasic bilaterally throughout. Pulse volume recording: []. Pressure gradients: None. Ankle-brachial indices: Greater than 1 bilaterally. Toe pressures: [] on the right, [] on the left Impression: Normal basic study.
--- NOTE | 2016-05-17 11:41 | P.PN ---
Subjective Principal diagnosis: Triple-vessel coronary artery disease with non-ST elevation myocardial infarction. Overall preserved left ventricular function. Hypertension. Hyperlipidemia. Obesity. Untreated diabetes. POD #7 triple coronary artery bypass grafting using the left internal mammary artery to the mid left anterior descending artery, reverse saphenous vein graft from the aorta to the lateral branching of the first diagonal artery, reverse saphenous vein graft from the aorta to the right coronary artery. Endoscopic harvesting of the left greater saphenous vein. Intraoperative transesophageal echocardiogram and epi-aortic scanning. Intraoperative graft flow measurements using the Medistim machine. Currently sitting up in chair, no apparent distress. No new concerns at this time. Objective - Vital Signs Vital signs: Vital Signs Temp 97.7 F 05/17/16 11:34 Pulse 74 05/17/16 11:34 Resp 18 05/17/16 11:34 BP 120/80 05/17/16 11:34 Pulse Ox 96 05/17/16 11:34 Intake & Output 05/16/16 05/17/16 05/17/16 18:59 06:59 18:59 Intake Total 710 600 120 Output Total 200 450 Balance 510 150 120 Weight 94.9 kg Intake: IV 10 Invasive Line 7 10 Oral 700 600 120 Output: Urine 200 450 Other: Voiding Method Toilet Toilet Toilet # Voids 3 1 0 # Bowel Movements 1 ABP, PAP, CO, CI - Last Documented Arterial Blood Pressure 83/78 Pulmonary Artery Pressure 32/23 Cardiac Output 3.5 Cardiac Index 1.9 - Constitutional General appearance: Present: cooperative, no acute distress - Respiratory Details: Lungs sounds diminished bilaterally. Respirations even, nonlabored. Remains on room air. Able to achieve 750 mL on incentive spirometry. - Cardiovascular Details: S1, S2 present. Regular rate and rhythm, normal sinus rhythm on telemetry. Chest stable. Heart hugger in place with patient demonstrating appropriate use. - Gastrointestinal Gastrointestinal Comment(s): Abdomen soft, nontender, nondistended. Bowel sounds active 4 quadrants. Tolerating diet. - Genitourinary Genitourinary Comment(s): Continues to void clear, yellow urine. - Musculoskeletal Musculoskeletal: Present: gait normal, strength equal bilaterally - Psychiatric Psychiatric: Present: A&O x's 3, appropriate affect, intact judgment & insight - Allied health notes Allied health notes reviewed: nursing - Labs CBC & Chem 7: 05/17/16 05:44 05/17/16 05:41 Labs: Abnormal Lab Results - Last 24 Hours (Table) 05/16/16 05/16/16 05/17/16 Range/Units 16:32 21:07 01:57 RBC (3.80-5.40) m/uL Hgb (11.4-16.0) gm/dL Hct (34.0-46.0) % RDW (11.5-15.5) % Nucleated RBCs (0-0) /100 WBC Carbon Dioxide (22-30) mmol/L BUN (7-17) mg/dL POC Glucose (mg/dL) 120 H 117 H 166 H (75-99) mg/dL AST (14-36) U/L Total Protein (6.3-8.2) g/dL Albumin (3.5-5.0) g/dL 05/17/16 05/17/16 Range/Units 05:41 05:44 RBC 2.57 L (3.80-5.40) m/uL Hgb 7.9 L (11.4-16.0) gm/dL Hct 25.3 L (34.0-46.0) % RDW 15.6 H (11.5-15.5) % Nucleated RBCs 12 H (0-0) /100 WBC Carbon Dioxide 32 H (22-30) mmol/L BUN 22 H (7-17) mg/dL POC Glucose (mg/dL) (75-99) mg/dL AST 42 H (14-36) U/L Total Protein 5.7 L (6.3-8.2) g/dL Albumin 3.2 L (3.5-5.0) g/dL Assessment and Plan (1) NSTEMI (non-ST elevated myocardial infarction) Status: Acute (2) Hypertension Status: Acute (3) Hyperlipidemia Status: Acute (4) Diabetes type 2, uncontrolled Status: Acute (5) Obesity, morbid, BMI 40.0-49.9 Status: Acute Plan: 1. Continue aspirin, Plavix, statin, EDMUNDO inhibitor. 2. Increase Lopressor to 75 mg by mouth BID. 3. Increase activity, ambulate in hallway minimum 4 times daily. 4. Will need diabetic education, hemoglobin A1c 6.6. Management per primary service. 5. Monitor labs 6. Encourage incentive spirometry use. 7. GI/DVT prophylaxis 8. Will discharge later this afternoon. Time with Patient: Greater than 30
[2016-05-17] MEDS ORDERED: METOPROLOL TARTRATE 25 MG TAB PO SCH ×2 (11:45→21:00)
[2016-05-17] MEDS ORDERED: METOPROLOL TARTRATE 25 MG TAB PO ONE (11:45)
[2016-05-17 11:53] LABS: Glucose,Whole Blood 73 mg/dL (75-99)
[2016-05-17] MEDS: LISINOPRIL 5 MG TAB PO SCH (12:12)
--- NOTE | 2016-05-17 16:15 | P.PN ---
Subjective Principal diagnosis: This is a very pleasant 50-year-old female patient who presented here on 2016 and was found to have non-ST segment elevation myocardial infarction and severe triple-vessel disease. She also has a history of hypertension, hyperlipidemia, obesity and diabetes mellitus, untreated. She had subsequently undergone a coronary artery bypass grafting surgery utilizing the RODGERS to the LAD, SVG to the first diagonal artery and SVG to the RCA. She is postoperative day #3. She is seen again today in follow-up in the intensive care unit. She is awake and alert in no acute distress. Her pain is well managed. She does continue to require increased encouragement regarding the incentive spirometer and cough and deep breathing exercises. She is only pulling about 500 mL's. Her chest x-ray does show evidence of fluid volume overload with fluid in the minor fissure. She is maintaining good O2 saturations in the 90s on 2 L/m per nasal cannula. She has an IV of lactated Ringer's at 20 mL's per hour. She is also requiring insulin at 1.5 units per hour. This is a very pleasant 50-year-old female patient who presented here on 2016 and was found to have non-ST segment elevation myocardial infarction and severe triple-vessel disease. She also has a history of hypertension, hyperlipidemia, obesity and diabetes mellitus, untreated. She had subsequently undergone a coronary artery bypass grafting surgery utilizing the RODGERS to the LAD, SVG to the first diagonal artery and SVG to the RCA. She is postoperative day #6. She is seen again today in follow-up on the selective care unit. She is currently sitting up in the chair at the bedside. She is awake and alert in no acute distress. Her pain is well managed. She does continue to require increased encouragement regarding the incentive spirometer and cough and deep breathing exercises. She is only pulling about 750 mL's. Her chest x-ray does show evidence of small bilateral pleural effusions with small infiltrate of the right lower lobe. She is maintaining good O2 saturations in the 90s on room air. He has been hemodynamically stable. She is anxious to go home. The patient is seen again today 05/17/2016 in follow-up on the selective care unit. She is awake and alert in no acute distress. She's been up ambulating with assistance. She denies any worsening shortness of breath, cough or congestion. She is maintaining good O2 saturations in the mid 90s on room air. She's been afebrile. This is postoperative day #7. Objective - Vital Signs Vital signs: Vital Signs Temp 97.7 F 05/17/16 11:34 Pulse 88 05/17/16 12:01 Resp 18 05/17/16 11:34 BP 120/80 05/17/16 11:34 Pulse Ox 96 05/17/16 11:34 Intake & Output 05/16/16 05/17/16 05/17/16 18:59 06:59 18:59 Intake Total 710 600 240 Output Total 200 450 Balance 510 150 240 Weight 94.9 kg Intake: IV 10 Invasive Line 7 10 Oral 700 600 240 Output: Urine 200 450 Other: Voiding Method Toilet Toilet Toilet # Voids 3 1 0 # Bowel Movements 1 ABP, PAP, CO, CI - Last Documented Arterial Blood Pressure 83/78 Pulmonary Artery Pressure 32/23 Cardiac Output 3.5 Cardiac Index 1.9 - Exam GENERAL EXAM: Alert, comfortable in no apparent distress. HEAD: Normocephalic. EYES: Normal reaction of pupils, equal size. NOSE: Clear with pink turbinates. THROAT: No erythema or exudates. NECK: No masses, no JVD. CHEST: No chest wall deformity. LUNGS: Equal air entry with crackles in the posterior bases. CVS: S1 and S2 normal with no audible murmurs, regular rhythm. ABDOMEN: No hepatosplenomegaly, normal bowel sounds, no guarding or rigidity. SPINE: No scoliosis or deformity SKIN: No rashes CENTRAL NERVOUS SYSTEM: No focal deficits, tone is normal in all 4 extremities. Extremities: There is trace peripheral edema. No clubbing, no cyanosis. Peripheral pulses are intact. - Labs CBC & Chem 7: 05/17/16 05:44 05/17/16 05:41 Labs: Abnormal Lab Results - Last 24 Hours (Table) 05/16/16 05/16/16 05/17/16 Range/Units 16:32 21:07 01:57 RBC (3.80-5.40) m/uL Hgb (11.4-16.0) gm/dL Hct (34.0-46.0) % RDW (11.5-15.5) % Nucleated RBCs (0-0) /100 WBC Carbon Dioxide (22-30) mmol/L BUN (7-17) mg/dL POC Glucose (mg/dL) 120 H 117 H 166 H (75-99) mg/dL AST (14-36) U/L Total Protein (6.3-8.2) g/dL Albumin (3.5-5.0) g/dL 05/17/16 05/17/16 05/17/16 Range/Units 05:41 05:44 11:26 RBC 2.57 L (3.80-5.40) m/uL Hgb 7.9 L (11.4-16.0) gm/dL Hct 25.3 L (34.0-46.0) % RDW 15.6 H (11.5-15.5) % Nucleated RBCs 12 H (0-0) /100 WBC Carbon Dioxide 32 H (22-30) mmol/L BUN 22 H (7-17) mg/dL POC Glucose (mg/dL) 73 L (75-99) mg/dL AST 42 H (14-36) U/L Total Protein 5.7 L (6.3-8.2) g/dL Albumin 3.2 L (3.5-5.0) g/dL Assessment and Plan Plan: Impression: #1 Non-ST segment elevation myocardial infarction. #2 Coronary artery disease status post coronary artery bypass grafting 3. Postoperative day #6. #3 Hypertension. #4 Hyperlipidemia. #5 Diabetes mellitus. Plan: The patient was seen and evaluated by Dr. Paredes. She is stable from the pulmonary standpoint. She'll be seen in our office in 1-2 weeks' time and we' ll repeat a chest x-ray done. She is again encouraged regarding the increased use of the incentive spirometer and cough and deep breathing exercises even while at home.
[2016-05-17 16:59] LABS: Glucose,Whole Blood 91 mg/dL (75-99)
--- NOTE | 2016-05-17 17:18 | P.PN ---
Subjective Date of service 05/17/2016. Progress note being dictated for Dr. Latif Interval history: This a 50-year-old female admitted with non-ST elevation [place], status post cardiac catheterization with major triple vessel disease, S/P CABG and multiple other medical issues. Incentive spirometer up to 750. Telemetry sinus rhythm. Inconsistent diet intake, consuming 75% of dinner last night but only 25% of breakfast this morning with fluctuating blood sugars. Denies nausea or vomiting. Afebrile. Maintaining O2 sats of 96-98% on room air. Objective - Vital Signs Vital signs: Vital Signs Temp 97.7 F 05/17/16 11:34 Pulse 88 05/17/16 12:01 Resp 18 05/17/16 11:34 BP 120/80 05/17/16 11:34 Pulse Ox 96 05/17/16 11:34 Intake & Output 05/16/16 05/17/16 05/17/16 18:59 06:59 18:59 Intake Total 710 600 240 Output Total 200 450 Balance 510 150 240 Weight 94.9 kg Intake: IV 10 Invasive Line 7 10 Oral 700 600 240 Output: Urine 200 450 Other: Voiding Method Toilet Toilet Toilet # Voids 3 1 0 # Bowel Movements 1 ABP, PAP, CO, CI - Last Documented Arterial Blood Pressure 83/78 Pulmonary Artery Pressure 32/23 Cardiac Output 3.5 Cardiac Index 1.9 - Exam PHYSICAL EXAM: VITAL SIGNS: [As above] GENERAL: [Sitting up in chair, no acute distress] HEENT: [Pupils equal conjunctiva normal.] NECK: [Supple, no JVD] RESPIRATORY EFFORT:[Normal] LUNGS: Essentailly clear with no rhonchi, no wheezes, fine bibasilar crackles.] CARDIOVASCULAR[regular S1 and S2, trace edema] GI: [Abdomen soft, nontender, positive bowel sounds.] PSYCH: [Alert and oriented -3, mood and affect normal.] NEURO: No focal deficits - Labs CBC & Chem 7: 05/17/16 05:44 05/17/16 05:41 Labs: Abnormal Lab Results - Last 24 Hours (Table) 05/16/16 05/17/16 05/17/16 Range/Units 21:07 01:57 05:41 RBC (3.80-5.40) m/uL Hgb (11.4-16.0) gm/dL Hct (34.0-46.0) % RDW (11.5-15.5) % Nucleated RBCs (0-0) /100 WBC Carbon Dioxide 32 H (22-30) mmol/L BUN 22 H (7-17) mg/dL POC Glucose (mg/dL) 117 H 166 H (75-99) mg/dL AST 42 H (14-36) U/L Total Protein 5.7 L (6.3-8.2) g/dL Albumin 3.2 L (3.5-5.0) g/dL 05/17/16 05/17/16 Range/Units 05:44 11:26 RBC 2.57 L (3.80-5.40) m/uL Hgb 7.9 L (11.4-16.0) gm/dL Hct 25.3 L (34.0-46.0) % RDW 15.6 H (11.5-15.5) % Nucleated RBCs 12 H (0-0) /100 WBC Carbon Dioxide (22-30) mmol/L BUN (7-17) mg/dL POC Glucose (mg/dL) 73 L (75-99) mg/dL AST (14-36) U/L Total Protein (6.3-8.2) g/dL Albumin (3.5-5.0) g/dL Assessment and Plan Plan: 1. [acute non-STEMI, status post cardiac cath with severe triple vessel disease, S/P CABG]. 2. [accelerated hypertension, controlled]. 3. Atlelectasis, bilaterally 4. Lifelong, ongoing nicotine abuse 5. [Hyperlipidemia]. 6. Obesity, BMI 42.8 7. DM II, HGBA1C 6.6 8. acute blood loss anemia, post-operative,stable 9. Hypoalbuminemia Plan: Continue current medication regime, aspirin, beta kun, statin, monitoring and symptomatic treatment. Aggressive pulmonary toileting. Increase ambulation in hallway as tolerated. Smoking cessation readdressed. Close monitoring of accu cheks,diet intake inconsistent. At discharge Recommend Lantus insulin 10 units daily at bedtime, and to hold diet and Accu- Chek less than 100. Discharge planning in progress for later today per cardiothoracic surgery The impression and plan of care has been dictated as directed. : I performed a H&P examination of this patient and discussed the same with the dictator. I agree with the dictator's note. Any additional findings/opinions/ etc. will be noted.
[2016-05-17 18:12] VITALS: BP 183/88; PULSE 85; RESP 16; TEMP 99.3
--- NOTE | 2016-05-17 18:30 | PN ---
This patient is status post coronary artery bypass surgery. She is comfortable. She is ambulating in the hallway. Patient is afebrile. The blood pressure is 120/80 millimeters of Hg. First and second heart sounds are normal. Lungs are clear to auscultation and percussion. Patient is going to be discharged home.
--- NOTE | 2016-05-17 19:40 | PN ---
DATE OF SERVICE: 05/17/2016 This 50-year-old woman who was admitted with acute hzn-MQ-[id number]-elevation myocardial infarction also had CAD, CABG. Seen and evaluated the patient along with the nurse practitioner. Please refer to the nurse practitioner's notes and impressions documented as a scribe for further information. Recommend close followup with primary physician. Accu-Cheks before meals and at bedtime. Rest of the medications and recommendations per Cardiovascular Surgery.
--- NOTE | 2016-05-18 12:09 | P.DS ---
Providers Date of admission: 05/07/16 13:31 Attending physician: Chanell Kohli Consults: 05/08/16 12:58 Consult Physician Urgent Consulting Provider: Butch Titus Consult Reason/Comments: icu management Do you want consulting provider notified?: Already Contacted 05/08/16 15:24 Consult Anesthesia Routine Consulting Provider: Anesthesia,Services Consult Reason/Comments: Cardiac Surgery Pre-Op 05/08/16 15:45 Consult Physician Urgent Consulting Provider: Chanell Kohli Consult Reason/Comments: cardiac surgery Do you want consulting provider notified?: Already Contacted 05/09/16 11:14 Consult Physician Routine Consulting Provider: Raine Latif Consult Reason/Comments: med managment Do you want consulting provider notified?: Already Contacted Primary care physician: Stated None - Discharge Diagnosis(es) (1) NSTEMI (non-ST elevated myocardial infarction) Status: Acute (2) Hypertension Status: Acute (3) Hyperlipidemia Status: Acute (4) Diabetes type 2, uncontrolled Status: Acute (5) Obesity, morbid, BMI 40.0-49.9 Status: Acute Hospital Course: FINAL DIAGNOSIS: 1.[Triple-vessel coronary artery disease with non-ST elevation myocardial infarction] 2.[Overall preserved left ventricular function] 3.[Hypertension] 4.[Hyperlipidemia] 5.[Obesity] 6.[Untreated diabetes] PRINCIPAL PROCEDURE: [] 1.[Triple coronary artery bypass grafting using the left internal mammary artery to the mid left anterior descending artery, reverse saphenous vein graft from the aorta to the lateral branching of the first diagonal artery, reverse saphenous vein graft from the aorta to the right coronary artery] 2.[Endoscopic harvesting of the left greater saphenous vein] 3.[Intraoperative transesophageal echocardiogram and epi-aortic scanning] 4.[Intraoperative graft flow measurements using the Medistim machine] HISTORY OF PRESENT ILLNESS: [This 50-year-old female with a strong family history of premature coronary artery disease, hypertension and hyperlipidemia which had not been treated for several years, was admitted with 2 -3 weeks history of chest pain that was increasing in nature. The patient was ruled in for a non-ST elevation myocardial infarction. CTA of the chest was negative for pulmonary embolism. Cardiac catheterization demonstrated significant left main and ostial right coronary artery disease. The patient did have some chest pain post cardiac catheterization, and she was kept in the hospital with cardiothoracic surgery consult for possible surgical revascularization. Dr. Kohli met with the patient, gave a detailed description of the planned procedure, reviewed all risks and benefits, answered all questions completely, and the patient consented to surgery.] HOSPITAL COURSE:[On 05/11/1110/14/2016 the patient was taken to the operating room. Dr. Kohli performed an urgent on pump triple coronary artery bypass grafting using the left internal mammary artery to the mid left anterior descending artery, reverse saphenous vein graft from the aorta to the lateral branching of the first diagonal artery, reverse saphenous vein graft from the aorta to the right coronary artery, endoscopic harvesting of the left greater saphenous vein , intraoperative transesophageal echocardiogram and epi-aortic scanning, and intraoperative graft flow measurements using the Medistim machine. Upon completion of the surgery she was subsequently transferred to the cardiovascular intensive care unit where she was recovered, monitored hemodynamically, and where she progressed to cardiac rehabilitation phase 1. She was extubated, all lines tubes and drips were discontinued when appropriate , and she was subsequently transferred to [address] [place] [address] for further monitoring and rehabilitation. Her oxygen was titrated down, she continued to work with physical therapy, and she was ready to be discharged home on postoperative day #7 with [facility] follow.] COMPLICATIONS: [The patient experienced no postoperative complications.] DISCHARGE INSTRUCTIONS: 1. No driving for 4 weeks, or until physician gives their ok. 2. The patient should sleep in their own bed, no medical bed needed. 3. Stairs are not an issue. If the bedroom is upstairs, it is advised that the patient go up at night and down in the morning for the first week. Go slowly, using handrail and take 1 step at a time. 4. ADDIS hose are to be worn for 30 days or until physician discontinues. 5. Heart hugger is to be worn 100% of the time until physician discontinues.( except when showering) 6. No lifting, pushing, or pulling more than 10 pounds for 12 weeks. The physician will advise of any restriction changes. 7. The patient is expected to continue the prescribed walking program. 8. Continue pain control per as needed orders. 9. Continue with incentive spirometry and splinting/heart hugger until otherwise directed by the physician. 10. Must shower daily using liquid antibacterial soap and a separate white washcloth for each individual incision. 11. Routine sternal incision care. HOME HEALTH SERVICES TO PROVIDE: RN SKILLED HOME CARE SERVICES FOR POST-OP SURGICAL PATIENTS WITH THE FOLLOWING: Coronary Artery Bypass Surgery (CABG), Mitral Valve Replacement/ Repair ( MVR), Aortic Valve Replacement/Repair (AVR) RN TO CONTINUE EDUCATION FROM ``ROAD TO A HEALTH HEART PATIENT EDUCATION MANUAL (GIVEN TO PATIENT IN THE HOSPITAL) MEDICATION RECONCILIATION WITH EDUCATION NEEDED ON FIRST HOME VISIT EMPHASIZE IMPORTANCE OF WEARING BREAST SUPPORT/HEART HUGGER ENCOURAGE USE OF INCENTIVE SPIROMETER 10 X EVERY HOUR WHILE AWAKE ENCOURAGE UTILIZATION OF LOWER EXTREMITY COMPRESSION STOCKINGS/ADDIS HOSE and ELEVATE LEGS ABOVE LEVEL OF HEART WHILE AT REST. ENCOURAGE AMBULATION 3-5x/day INCREASING TOLERATES, WHILE AVOID EXTREMES IN TEMPERATURE FREQUENCY: RN TO OPEN THE PATIENT WITHIN 24 HOURS OF DISCHARGE FROM THE HOSPITAL WITH TELEHEALTH INSTALLED AT [facility] [place], RN TO VISIT 2-3 X A WEEK FOR 4 WEEKS ESTABLISHED BY PATIENT NEEDS. REMOVAL OF SUTURES: NURSING SERVICES TO REMOVE SUTURES TWO WEEKS POST SURGICAL DATE [ 05/24/16 ]. If any questions regarding suture removal please call the office at [phone]. LABORATORY: CBC, CMP TO BE DRAWN ON THE THIRD DAY HOME, Sunday05/20/2016 (RAN STAT ) FAX RESULTS TO [phone]. TELEHEALTH PARAMETERS: WEIGHT: NOTIFY MD OF WEIGHT GAIN OF 2 LBS IN 24 HOURS OR 5 LBS IN ONE WEEK HR: NOTIFY MD OF HR <55 BPM OR HR>100 BPM BP: NOTIFY MD IF BP <90/55 OR BP>140/100 O2 SAT: NOTIFY MD IF PO2<93% ON ROOM AIR SEND TELEHEALTH REPORT TO SUPERVISOR CARDING AND CARDIOVASCULAR SURGEON THE FIRST WEEK OF CARE AND THEN BI-WEEKLY. PLEASE ADDITIONALLY COMMUNICATE ANY ABNORMALS AND NEW FINDINGS TO THE SURGEONS OFFICE. Patient Condition at Discharge: Serious Plan - Discharge Summary New Discharge Prescriptions: Aspirin 81 mg PO DAILY #30 chew Atorvastatin [Lipitor] 40 mg PO DAILY #30 tab Clopidogrel [Plavix] 75 mg PO DAILY #30 tab HYDROcodone/APAP 5-325MG [[place] 5-325] 1 - 2 each PO Q6HR PRN #30 tab PRN Reason: Moderate Pain Insulin Glargine [Lantus] 10 unit SQ HS #1 vial Lisinopril [Zestril] 5 mg PO 1200 #30 tab Metoprolol Tartrate [Lopressor] 75 mg PO BID #60 tab Discharge Medication List Aspirin 81 mg PO DAILY #30 chew 05/17/16 [Rx] Atorvastatin [Lipitor] 40 mg PO DAILY #30 tab 05/17/16 [Rx] Clopidogrel [Plavix] 75 mg PO DAILY #30 tab 05/17/16 [Rx] HYDROcodone/APAP 5-325MG [[place] 5-325] 1 - 2 each PO Q6HR PRN #30 tab 05/17/16 [ Rx] Insulin Glargine [Lantus] 10 unit SQ HS #1 vial 05/17/16 [Rx] Lisinopril [Zestril] 5 mg PO 1200 #30 tab 05/17/16 [Rx] Metoprolol Tartrate [Lopressor] 75 mg PO BID #60 tab 05/17/16 [Rx] Follow up Appointment(s)/Referral(s): Chanell Kohli MD [STAFF PHYSICIAN] - 06/09/16 9:30 am Butch Titus DO [Doctor of Osteopathic Medicine] - 05/23/16 2:00 pm [facility], [NON-STAFF] - Kamilla Remy MD [STAFF PHYSICIAN] - 05/22/16 2:00 pm () Keenan Arciniega MD [STAFF PHYSICIAN] - 05/29/16 10:30 am Ambulatory/Diagnostic Orders: Complete Blood Count w/diff [LAB.AMB] Time Frame: 3 Days, Facility: [facility], Location: [facility] Comprehensive Metabolic Panel [LAB.AMB] Time Frame: 3 Days, Facility: [facility], Location: [facility] Patient Instructions/Handouts: Coronary Artery Disease (DC), Heart Healthy Diet (DC) Activity/Diet/Wound Care/Special Instructions: Diet: Consistent carb, cardiac Accu-Cheks before meals and at bedtime (case management to provide patient with glucometer and diabetic supplies), maintain log and take to follow-up visit with PCP for further recommendations DISCHARGE INSTRUCTIONS: 1. No driving for 4 weeks, or until physician gives their ok. 2. The patient should sleep in their own bed, no medical bed needed. 3. Stairs are not an issue. If the bedroom is upstairs, it is advised that the patient go up at night and down in the morning for the first week. Go slowly, using handrail and take 1 step at a time. 4. ADDIS hose are to be worn for 30 days or until physician discontinues. 5. Heart hugger is to be worn 100% of the time until physician discontinues.( except when showering) 6. No lifting, pushing, or pulling more than 10 pounds for 12 weeks. The physician will advise of any restriction changes. 7. The patient is expected to continue the prescribed walking program. 8. Continue pain control per as needed orders. 9. Continue with incentive spirometry and splinting/heart hugger until otherwise directed by the physician. 10. Must shower daily using liquid antibacterial soap and a separate white washcloth for each individual incision. 11. Routine sternal incision care. HOME HEALTH SERVICES TO PROVIDE: RN SKILLED HOME CARE SERVICES FOR POST-OP SURGICAL PATIENTS WITH THE FOLLOWING: Coronary Artery Bypass Surgery (CABG), Mitral Valve Replacement/ Repair ( MVR), Aortic Valve Replacement/Repair (AVR) RN TO CONTINUE EDUCATION FROM ``ROAD TO A HEALTH HEART PATIENT EDUCATION MANUAL (GIVEN TO PATIENT IN THE HOSPITAL) MEDICATION RECONCILIATION WITH EDUCATION NEEDED ON FIRST HOME VISIT EMPHASIZE IMPORTANCE OF WEARING BREAST SUPPORT/HEART HUGGER ENCOURAGE USE OF INCENTIVE SPIROMETER 10 X EVERY HOUR WHILE AWAKE ENCOURAGE UTILIZATION OF LOWER EXTREMITY COMPRESSION STOCKINGS/ADDIS HOSE and ELEVATE LEGS ABOVE LEVEL OF HEART WHILE AT REST. ENCOURAGE AMBULATION 3-5x/day INCREASING TOLERATES, WHILE AVOID EXTREMES IN TEMPERATURE FREQUENCY: RN TO OPEN THE PATIENT WITHIN 24 HOURS OF DISCHARGE FROM THE HOSPITAL WITH TELEHEALTH INSTALLED AT [facility] [place], RN TO VISIT 2-3 X A WEEK FOR 4 WEEKS ESTABLISHED BY PATIENT NEEDS. REMOVAL OF SUTURES: NURSING SERVICES TO REMOVE SUTURES TWO WEEKS POST SURGICAL DATE [ 05/24/16 ]. If any questions regarding suture removal please call the office at [phone]. LABORATORY: CBC, CMP TO BE DRAWN ON THE THIRD DAY HOME, Sunday05/20/2016 (RAN STAT ) FAX RESULTS TO [phone]. TELEHEALTH PARAMETERS: WEIGHT: NOTIFY MD OF WEIGHT GAIN OF 2 LBS IN 24 HOURS OR 5 LBS IN ONE WEEK HR: NOTIFY MD OF HR <55 BPM OR HR>100 BPM BP: NOTIFY MD IF BP <90/55 OR BP>140/100 O2 SAT: NOTIFY MD IF PO2<93% ON ROOM AIR SEND TELEHEALTH REPORT TO SUPERVISOR CARDING AND CARDIOVASCULAR SURGEON THE FIRST WEEK OF CARE AND THEN BI-WEEKLY. PLEASE ADDITIONALLY COMMUNICATE ANY ABNORMALS AND NEW FINDINGS TO THE SURGEONS OFFICE. Discharge Disposition: HOME WITH HOME HEALTH SERVICES
== END 2016-05-17 18:58 | disposition home health service (06) | DRG 234 ==
LOC: EC 11:43 → 6SEL 13:31 → 6ICU 05-08 12:02 → 6SEL 05-14 16:58
PROVIDERS: ADMIT Hospitalist; ATTEND Surgery
PROC: B2151ZZ Fluoroscopy of Left Heart using Low Osmolar Contrast (ICD-10-PCS; principal; 2016-05-07)
PROC: B2111ZZ Fluoroscopy of Multiple Coronary Arteries using Low Osmolar Contrast (ICD-10-PCS; principal; 2016-05-07)
PROC: 4A023N7 Measurement of Cardiac Sampling and Pressure, Left Heart, Percutaneous Approach (ICD-10-PCS; principal; 2016-05-07)
PROC: 02100Z9 Bypass Coronary Artery, One Artery from Left Internal Mammary, Open Approach (ICD-10-PCS; 2016-05-10)
PROC: 06BQ4ZZ Excision of Left Saphenous Vein, Percutaneous Endoscopic Approach (ICD-10-PCS; 2016-05-10)
PROC: 5A1221Z Performance of Cardiac Output, Continuous (ICD-10-PCS; 2016-05-10)
PROC: 021109W Bypass Coronary Artery, Two Arteries from Aorta with Autologous Venous Tissue, Open Approach (ICD-10-PCS; 2016-05-10)
PROC: B246ZZ4 Ultrasonography of Right and Left Heart, Transesophageal (ICD-10-PCS; 2016-05-10)
DX: I21.4 Non-ST elevation (NSTEMI) myocardial infarction (principal); J90 Pleural effusion, not elsewhere classified; Z68.41 Body mass index [BMI] 40.0-44.9, adult; E11.65 Type 2 diabetes mellitus with hyperglycemia; I11.9 Hypertensive heart disease without heart failure; D62 Acute posthemorrhagic anemia; J98.11 Atelectasis; E88.09 Other disorders of plasma-protein metabolism, not elsewhere classified; E87.70 Fluid overload, unspecified; E66.01 Morbid (severe) obesity due to excess calories; E86.9 Volume depletion, unspecified; I25.10 Atherosclerotic heart disease of native coronary artery without angina pectoris; E78.5 Hyperlipidemia, unspecified; I25.2 Old myocardial infarction; N28.9 Disorder of kidney and ureter, unspecified; Z82.49 Family history of ischemic heart disease and other diseases of the circulatory system; Z88.1 Allergy status to other antibiotic agents
CPT/HCPCS: 36415; 36600; 71010; 71020; 71275; 80048; 80053; 80061; 80074; 81001; 82330; 82550; 82553; 82805; 83036; 83690; 83735; 83880; 84443; 84484; 85025; 85049; 85520; 85610; 85730; 86850; 86891; 86900; 86901; 86920; 87070; 87086; 93005; 93306; 93308; 93458; 93880; 93923; 93970; 94002; 94003; 94150; 94640; 94760; 96361; 96365; 96366; 96375; 96376; 99291

== ENCOUNTER 2024-06-08 19:16 | Outpatient (CLI) | payer OTHER ==
--- NOTE | 2024-06-11 17:10 | P.PCN ---
Description of Procedure: POLYSOMNOGRAPHY REPORT PROCEDURE(S)/DATE(S): Polysomnography 06/08/2024 CLINICAL: Patient has been seen in the sleep center for evaluation of obstructive sleep apnea-hypopnea syndrome. Please see my consultation. Sleep study has been done for evaluation of patient breathing during the sleep. PROCEDURE: The standard montage for clinical polysomnography included the electroencephalogram, the electrooculogram, the mentalis surface electromyography and Lead II cardiography. The respiratory battery consisted of measurements of nasal/buccal air flow, pressure transducer measurements from nose, thoracic and/or abdominal effort and intercostal surface electromyography. Video monitoring has been done to check for any parasomnia events. Nocturnal oxyhemoglobin saturations were obtained by finger oximetry. Step-saavedra titration with positive airway pressure was utilized to control the respiratory events, if necessary. RESULTS: During the diagnostic sleep study sleep efficiency was significantly decreased to 69.5%. Latency to sleep onset was significantly prolonged to 44.5 min. Sleep architecture showed stage NI short 1.9%, Delta sleep was extremely short 0.7%, REM sleep was extremely high 50.6%. Respiratory channel showed 5 obstructive apneas, 1 mixed apneas, 3 central apneas, 144 hypopneas with lowest oxygen level 74%. Total apnea hypopnea index was 32.4. Heart rate was in the range between 53 and 68, average 57. EMG showed no significant periodic limb movements.. IMPRESSIONS: 1. Severe obstructive sleep apnea hypopnea syndrome. 2. No significant periodic limb movements have been documented. Please see other impressions from consultation PLAN: 1. The patient will have PAP titration for correction of respiratory abnormalities during the sleep. 2. Losing weight program. 3. Sleep hygiene with regular time in bed for at least 7-1/2 hours. 4. No driving if feeling sleepiness. Thank you very much for allowing me to participate in the management of your patient. Sincerely, Jaime Alcantar MD, PhD, FAASM. Diplomat of [place] [employer], Sleep Medicine Board by [place] [employer] Internal Specialist of [facility] [place] cc: James Lozano MD
== END 2024-06-09 09:30 | disposition home or self-care (01) ==
LOC: 3 N SLEEP 19:16
PROVIDERS: ATTEND Internal Medicine
DX: G47.33 Obstructive sleep apnea (adult) (pediatric) (principal); Z88.0 Allergy status to penicillin; Z88.1 Allergy status to other antibiotic agents
CPT/HCPCS: 95810

== ENCOUNTER 2024-06-26 19:41 | Outpatient (CLI) | payer OTHER ==
--- NOTE | 2024-07-03 13:44 | P.PCN ---
Description of Procedure: CLINICAL: Titration with positive air pressure has been done for correction of respiratory abnormalities during sleep. DESCRIPTION OF PROCEDURE: The standard montage for clinical polysomnography included the electroencephalogram, the electrocardiogram, the mentalis surface electromyography and Lead II cardiography. The respiratory battery consisted of measurements of nasal /buccal air flow, pressure transducer measurements from the nose, thoracic and /or abdominal effort and intercostal surface electromyography. Video monitoring has been done to check for any parasomnia events. Nocturnal oxyhemoglobin saturations were obtained by finger oximetry. Step-saavedra titration with positive airway pressure was utilized to control respiratory events. Raw data of sleep recording has been reviewed and is adequate. RESULTS: Sleep efficiency was significantly short 45.6%. Latency to sleep onset was significantly prolonged to 118.0 minutes.]. Sleep architecture showed stage N1 was short 1.3%, Delta sleep was practically absent 0.3%, REM sleep was not normal high range 27.7%. Heart rate was minimum 52 BPM, maximum 58 BPM, average 55 BPM. EMG showed 60.3 periodic limb movements per hour with 1.0 micriarousals per hour. PAP titration have been done with CPAP up to the pressure 11 cm H2O. The best results were at the pressure 11 cm H2O. Apnea hypopnea index reduced to 0, but patient was at that pressure for short period of time. IMPRESSION: 1. Obstructive sleep apnea hypopnea syndrome mostly on controle with PAP treatment. 2. Significant periodic limb movements have been documented. Please see other impressions from consultation. PLAN: 1. The patient will have treatment with positive air pressure equipment with the level of pressure AutoPap 5-13 cm H2O and should use it every night for the whole night. 2. Watching and losing weight. 3. Sleep hygiene with regular time in bed for at least 8 hours. 4. No driving if feeling any sleepiness. 5. I will see the patient for follow up visit to explain the results of the test, recommendations, check compliance with treatment and make any necessary adjustment related to mask fitting, pressure and humidification. 6. Please check iron profile including ferritin level. Low level of iron may increase risk for periodic limb movements Thank you very much for allowing me to participate in the management of your patient. Sincerely, Jaime Alcantar MD, PhD, FAASM Diplomat of [place] [employer] Sleep Medicine Board of [place] [employer] Staff Command And Control Officer of [facility] [place] cc: James Lozano MD
== END 2024-06-27 06:30 | disposition home or self-care (01) ==
LOC: 3 N SLEEP 19:41
PROVIDERS: ATTEND Internal Medicine
DX: G47.33 Obstructive sleep apnea (adult) (pediatric) (principal); G47.61 Periodic limb movement disorder; Z88.1 Allergy status to other antibiotic agents; Z99.89 Dependence on other enabling machines and devices
CPT/HCPCS: 95811

== ENCOUNTER → 2024-09-03 | Outpatient (CLI) | payer OTHER ==
[2024-09-03 15:44] VITALS: BP 96/62; PULSE 68; RESP 18; TEMP 98.2
--- NOTE | 2024-09-03 16:01 | P.PROGSL ---
Subjective DATE: 09/03/2024 FOLLOW UP VISIT. Patient with obstructive sleep apnea hypopnea syndrome return to sleep center for follow-up visit. Recently patient had sleep study which documented obstructive sleep apnea hypopnea syndrome. Patient was initiated on PAP therapy and today is first visit after treatment was started. Patient was able to use PAP equipment every night for the whole night. The patient does not have significant problems with the mask, PAP pressure and humidification. [place] sleepiness scale is 10, which is borderline. I checked information from PAP unit. PAP unit pressure 5-13, average 10.7 cm H2O. Usage is 100% and 83% for more then 4 hours, average 6.75 hours per night. Leak is 6.1 l/m, which is in acceptable range. Apnea Hypopnea Index is 2.1, which is normal. MEDICATIONS: Please see below During physical exam: GENERAL: A pleasant patient without any distress. VITAL SIGNS: Please see below, weight 178.2 pounds. HEENT: PERRLA, EOMI.low position of soft palate, Mallapati 4 . NECK: Supple. No JVD. LUNGS: Clear to percussion and to auscultation. Good air exchange. No wheezing or rhonchi. HEART: S1, S2 regular. ABDOMEN: Soft and nontender.[] EXTREMITIES: No clubbing or cyanosis. KNIT GOODS WASHER: Awake, alert, and oriented x3. No focal deficit. Impressions: 1. Obstructive sleep apnea-hypopnea syndrome. Patient demonstrated great compliance with treatment, benefiting from treatment. 2. Obesity, BMI 36. 3. Coronary artery disease, status post CABG. 4. Diabetes mellitus. 5. Patient is under evaluation for kidney problems. 6. Hypertension. 7. Hyperlipidemia. 8. History of depression. 9. Status post cholecystectomy. Plan: 1. Continue using PAP equipment every night for the whole night. 2. To change air filter at least 1-2 times per month. 3. PAP unit should stay lower then position of the head. 4. Advised patient to remove all remaining water from humidifier canister daily and make it dry after each usage. Refill canister with fresh distilled water before each usage. 5. Sleep hygiene with regular time in bed for at least 8 hours. 6. Precautions related to driving. No driving if feel any sleepiness. 7. I will maintain prescription for PAP supplies including mask, tube, filters. 8. Follow up visit in 8 months or earlier if patient has any problems. 9. Watching and losing weight. Thank you very much for allowing me to participate in the management of your patient. Jaime Alcantar MD, PhD, FAASM. Diplomat of [place] [employer], Sleep Medicine Board by [place] [employer] Optical Scientist of [facility] [place] Objective - Vital Signs Vital Signs: Vital Signs Temp 98.2 F 09/03/24 15:43 Pulse 68 09/03/24 15:43 Resp 18 09/03/24 15:43 BP 96/62 09/03/24 15:43 Pulse Ox 95 09/03/24 15:43 FiO2 Intake & Output 09/02/24 09/03/24 09/03/24 18:59 06:59 18:59 Weight 80.796 kg Home Medications: Home Medications Medication Instructions Recorded Confirmed Type Aspirin 81 mg PO DAILY #30 chew 05/17/16 Rx Atorvastatin [Lipitor] 40 mg PO DAILY #30 tab 05/17/16 04/24/24 Rx Clopidogrel [Plavix] 75 mg PO DAILY #30 tab 05/17/16 Rx HYDROcodone/APAP 5-325MG [[place] 1 - 2 each PO Q6HR PRN #30 tab 05/17/16 Rx 5-325] Insulin Glargine (Lantus) [Lantus 10 unit SQ HS #1 vial 05/17/16 Rx Vial] lisinopriL [Zestril] 5 mg PO 1200 #30 tab 05/17/16 Rx Citalopram Hydrobromide [CeleXA] 20 mg PO DAILY 04/24/24 04/24/24 History Dulaglutide [Trulicity] 1.5 mg SQ WEEKLY 04/24/24 04/24/24 History Empagliflozin [Jardiance] 10 mg PO DAILY 04/24/24 04/24/24 History Losartan [Cozaar] 50 mg PO DAILY 04/24/24 04/24/24 History Metoprolol Tartrate [Lopressor] 50 mg PO DAILY 04/24/24 04/24/24 History amLODIPine [Norvasc] 5 mg PO DAILY 04/24/24 04/24/24 History metFORMIN HCL 500 mg PO BID 04/24/24 04/24/24 History
== END ==
LOC: 3 N SLEEP 15:22
PROVIDERS: ATTEND Internal Medicine
DX: G47.33 Obstructive sleep apnea (adult) (pediatric) (principal); E66.9 Obesity, unspecified; I25.10 Atherosclerotic heart disease of native coronary artery without angina pectoris; E11.9 Type 2 diabetes mellitus without complications; I10 Essential (primary) hypertension; E78.5 Hyperlipidemia, unspecified; F32.A Depression, unspecified; Z99.89 Dependence on other enabling machines and devices; Z95.1 Presence of aortocoronary bypass graft; Z68.36 Body mass index [BMI] 36.0-36.9, adult; Z90.49 Acquired absence of other specified parts of digestive tract; Z88.0 Allergy status to penicillin; Z88.8 Allergy status to other drugs, medicaments and biological substances
CPT/HCPCS: 99212

== ENCOUNTER → 2024-09-10 | Outpatient (CLI) | payer OTHER ==
[2024-09-10 19:41] LABS: Anion Gap 12.30 mmol/L (4.00-12.00); BUN/Creat Ratio 19.69 Ratio (12.00-20.00); Blood Urea Nitrogen 25.6 mg/dL (9.0-27.0); Calcium 9.4 mg/dL (8.7-10.3); Carbon Dioxide 23.7 mmol/L (21.6-31.8); Chloride 102 mmol/L (96-109); Glucose 127 mg/dL (70-110); Potassium 5.4 mmol/L (3.5-5.5); Sodium 138 mmol/L (135-145)
== END | disposition home or self-care (01) ==
LOC: LABWHC1 13:45
PROVIDERS: ATTEND Nurse Practitioner Family
DX: N18.31 Chronic kidney disease, stage 3a (principal)
CPT/HCPCS: 36415; 80048

== ENCOUNTER → 2024-09-22 | Outpatient (CLI) | payer OTHER ==
--- NOTE | 2024-09-22 15:16 | US ---
EXAMINATION TYPE: US kidneys/renal and bladder DATE OF EXAM: 09/22/2024 COMPARISON: NONE CLINICAL INDICATION: Female, 59 years old with history of N18.31 CHRONIC RENAL FAILURE STAGE 3; CKD TECHNIQUE: Grayscale imaging of the bilateral kidneys and urinary bladder: FINDINGS: EXAM MEASUREMENTS: Right Kidney: 10.6 x 5.2 x 4.8 cm Left Kidney: 6.2 x 4.5 x 4.3 cm Right Kidney: Limited assessment of the lower pole due to shadowing from bowel gas. No hydronephrosis . Left Kidney: Small size. No hydronephrosis. Bladder: wnl Bilateral Jets seen: Yes IMPRESSION: 1. Atrophic left kidney. 2. No hydronephrosis on either side. [facility], Workstation: [employer], 09/22/2024 3:14 PM
== END | disposition home or self-care (01) ==
LOC: RADUSWWP 14:30
PROVIDERS: ATTEND Student in an Organized Health Care Education/Training Program
DX: N18.31 Chronic kidney disease, stage 3a (principal); N26.1 Atrophy of kidney (terminal)
CPT/HCPCS: 76770

== ENCOUNTER → 2024-09-24 | Outpatient (CLI) | payer OTHER ==
--- NOTE | 2024-09-24 15:49 | MM ---
Reason for Exam: Screening (asymptomatic). Patient History: Menarche at age 11. First Full-Term at age 17. Risk Values: Ange 5 year model risk: 1.0%. NCI Lifetime model risk: 5.3%. Tissue Density: There are scattered areas of fibroglandular density. Findings: Analyzed By CAD. Right breast: There is no suspicious group of microcalcifications or new suspicious mass. Benign-appearing calcifications right breast. Left breast: There is no suspicious group of microcalcifications or new suspicious mass. Benign-appearing calcifications left breast. Overall Assessment: Benign, BI-RAD 2 Management: Screening Mammogram of both breasts in [address] [facility] will attempt to contact patient to return for supplemental views and ultrasound if indicated. Patient should continue monthly self-breast exams. A clinical breast exam by your physician is recommended on an annual basis. This exam should not preclude additional follow-up of suspicious palpable abnormalities. Note on Ange scores and lifetime risk: 1. A Ange score greater than 3% is considered moderate risk. If this is the case, consider specialist referral to assess eligibility for a risk reducing agent. 2. If overall lifetime risk for the development of breast cancer is 20% or higher, the patient may qualify for future screening with alternating mammogram and breast MRI. [facility], , 09/24/2024 3:46 PM. Electronically signed and approved by: Butch Heard DO
== END | disposition home or self-care (01) ==
LOC: RADMAMWWP 15:26
PROVIDERS: ATTEND Student in an Organized Health Care Education/Training Program
DX: Z12.31 Encounter for screening mammogram for malignant neoplasm of breast (principal); R92.323 Mammographic fibroglandular density, bilateral breasts
CPT/HCPCS: 77063; 77067